=== PATIENT | male | born 1955 | race Caucasian/White ===

== ENCOUNTER 2023-06-19 13:00 | Outpatient (AMB) | payer OTHER, SELFPAY ==
--- NOTE | 2023-06-19 13:01 | A.OFFVIS_ITS ---
Intake Intake Visit Reasons: known prostatic adenocarcinoma Intake Note: NEW Patient presents today to established treatment for Prostatic Adenocarcinoma: Meds- None Allergies to Antibiotic- No Known Allergies Blood Thinner- None Unable to void PVR- 140 mL Patient Symptoms: Difficulty Urinating Event Management Consultant Required: Yes Event Management Consultant Language: Accountant Certified Public Name: Zoie ORTEGA Accompanied by: Self / Same As Patient Allergies No Known Allergies Allergy (Verified 06/19/23 22:36) Medication List - Last Reconciled 06/19/23 by JULIANA Meraz-ASAEL clonazepam 1 mg PO BEDTIME PRN clonidine HCl 0.1 mg PO BEDTIME gabapentin 300 mg PO TID hydroxyzine pamoate mg PO BID multivitamin 1 tab PO DAILY omeprazole 20 mg PO DAILY quetiapine mg PO sertraline 100 mg PO DAILY tamsulosin (Flomax) 0.4 mg PO BEDTIME 30 days HPI HPI Comments History of Present Illness Details Ernie is a very pleasant Lithuanian-speaking 68-year-old male patient of . He has a past medical history of adenocarcinoma of prostate, anemia, asthma, hemorrhoids, GERD, hypotension, inguinal hernia, interstitial lung disease, and contain dependence. He presents to the office today as a new patient for his longstanding history of prostate cancer. In discussion with the patient today reports to be doing and feeling well. He reports having followed up approximately 4 years ago here with Dr. Medrano at which time he was diagnosed with prostate cancer after undergoing a prostate biopsy in 2019. In review of patient's chart it appears prostate biopsy was performed 01/28/2019 in noted with 1 positive core at the right apex medial noting [place] score 3+3 involving 5- 10% of core length; negative for perineural invasion, lymphovascular invasion, and extraprostatic extension. Unable to obtain previous urology office notes at this time. Patient is unsure of previous treatment modalities he underwent. Discussed obtaining MRI of the prostate for further assessment evaluation as well as PSA. In office urinalysis results reviewed with the patient today. PVR 140 mL. Discussed at length incomplete bladder emptying and affects of incomplete bladder emptying. Patient does report noting urinary urgency, urinary frequency, and nocturia. He otherwise denies hematuria, dysuria, foul smelling urine, changes to urinary stream, flank pain, fever, and or chills. PFSH Surgical History (Updated 06/19/23 @ 13:18 by LUANA Crandall) Hx of hernia repair Family History (Updated 06/19/23 @ 13:10 by LUANA Crandall) Father No problems noted. Mother No problems noted. Social History (Updated 06/19/23 @ 13:18 by LUANA Crandall) Alcohol intake: current Alcohol intake frequency: does not drink Patient Tobacco Use Status: Current everyday Tobacco user Review of Systems Const Reports as per HPI Eyes Reports no additional complaints ENT Reports no additional complaints Card Reports as per HPI Resp Reports as per HPI GI Reports as per HPI Reports as per HPI Musc Reports no additional complaints Neuro Reports no additional complaints Psych Reports no additional complaints Endo Reports no additional complaints Fabricio/Lymph Reports as per HPI Physical Exam Const General: cooperative, comfortable, no acute distress, well developed, alert and awake Nutritional Appearance: thin Orientation/consciousness: patient oriented x3 Limitations: no limitations HEENT Head: Yes normal to inspection, Yes normocephalic and Yes atraumatic Ears: hearing grossly normal bilaterally Eyes General: appearance normal, both eyes and all related structures Neck Neck: Yes normal visual inspection and Yes trachea midline Chest Chest palpation & inspection: normal inspection of the chest Resp Effort & Inspection: normal respiratory effort and able to speak in complete sentences Cardio Rate: regular rate GI Inspection: Yes normal to inspection General: Yes no CVA tenderness Back/Spine/Pelvis Back: no CVA tenderness Skin General skin exam: no rashes or lesions noted Neuro General: patient oriented x3 Extrem General: Yes normal to inspection Psych Appearance: grossly normal and well kempt Mental Status: mental status grossly normal Speech and movement: Normal speech and movement present and Clear speech present Affect: normal affect Attitude: cooperative Thought process: Normal thought process present Thought content: Normal thought content present Insight: Fair insight present (Psych) Judgement: Fair judgement present (Psych) Assessment & Plan Assessment & Plan (1) Prostate cancer: Code(s): C61 - Malignant neoplasm of prostate (2) Incomplete bladder emptying: Code(s): R33.9 - Retention of urine, unspecified (3) Lower urinary tract symptoms: Code(s): R39.9 - Unspecified symptoms and signs involving the genitourinary system (4) Nocturia: Code(s): R35.1 - Nocturia (5) Urinary frequency: Code(s): R35.0 - Frequency of micturition (6) Urinary urgency: Code(s): R39.15 - Urgency of urination Plan In office urinalysis results reviewed with the patient today; as noted above. PVR 140 mL. Discussed at length causes and affects of incomplete bladder emptying. Start Flomax as discussed and prescribed; discussed side effects given patient's history of hypotension; Discussed obtaining MRI for further assessment evaluation. Will obtain PSA for further assessment evaluation. Discussed, stress, and educated on the importance of following up keeping scheduled appointments for continuity of care Follow-up in 1 month with imaging and labs to be completed prior; or sooner with any issues, concerns, and or questions. Orders: Orders AMB Post Void Residual by ultrasound Today N39.8 - Other specified disorders of urinary system MR pelvis wo/w con Today C61 - Malignant neoplasm of prostate AMB Urinalysis Automated Today Z13.9 - Encounter for screening, unspecified PSA,Total (Free>4and<10) Today C61 - Malignant neoplasm of prostate Medications: New tamsulosin (Flomax) 0.4 mg PO BEDTIME 30 days 30 caps 1RF N40.0 - Benign prostatic hyperplasia without lower urinary tract symptoms Patient Instructions: The patient had an opportunity to ask questions regarding the treatment plan. All questions were answered. Physical exam, labs, and imaging were discussed and reviewed in detail. As well as risks, benefits, and discussion of treatment choices. No major barriers to understanding were identified. The patient expressed understanding and agreement with the above treatment plan. The patient was made aware they should contact our office by phone for worsening of their current condition, the appearance of new symptoms, or with any questions or concerns. Compliance is encouraged with any medications and follow up testing that is ordered. It is a privilege to be allowed the opportunity to participate in? your urological care.? Again, if you have any questions or concerns If you have any questions or concerns please do not hesitate to contact me. The office is [phone]. This note is constructed using voice recognition software. While every effort has been made to ensure accuracy american sign language interpreter errors may have been included. Yours sincerely, JULIANA Meraz- Coding Level of Care Code New Pt Level 4 (64030) Diagnoses Prostate cancer C61 Incomplete bladder emptying R33.9 Lower urinary tract symptoms R39.9 Nocturia R35.1 Urinary frequency R35.0 Urinary urgency R39.15
--- OUTSIDE RECORDS SUMMARY | 2023-06-19 13:01 | XMS_ITS | Continuity of Care Document ---
Author Name Unknown Organization [facility] Address [address] [place] [address]- Care Team Providers Care Onyx Chip Terrazzo Worker Name Role Phone Ruddy Perez DO Primary Care Physician Encounter [facility] Date(s): 12/07/20 - 01/06/21 [facility] [address], [place] [address] Allergies, Adverse Reactions, Alerts No Known Medication Allergies Substance Reaction Severity Status NKA Active Immunizations Given and Recorded Vaccine Date Status Refusal Reason influenza virus vaccine, inactivated 09/03/20 Give n influenza virus vaccine, inactivated 1 05/30/18 Gi anabela influenza virus vaccine, inactivated 06/12/16 Give n influenza virus vaccine, inactivated 06/30/15 Give n influenza virus vaccine, inactivated 2 05/02/13 Gi anabela influenza virus vaccine, inactivated 3 07/26/11 Gi anabela pneumococcal 23-valent vaccine 5 12/01/11 Given tetanus/diphtheria/pertussis, acel(Tdap) 6 08/03/11 Given Not Given Vaccine Date Status Refusal Reason influenza virus vaccine, inactivated 4 10/15/17 No t Given Parent Or Guardian Refuses 1Result Comment: [05/30/2018] vaccine information sheet provided in northern irish for patient. 2Result Comment: [05/02/2013] Flulavale [id number] 3Admin Note: VIS 03/14/2011 4Admin Note: vis 11/26 5Admin Note: VIS 06/27 6Result Comment: Pt states he received flu shot last June Medications albuterol 0.083% inhalation solution 3 mL = 2.5 mg, Inhalation, Every 6 hours, PRN for wheezing, # 25 each, 6 Refills, Maintenance, 12/11/19 8:25:00 EDT, Solution, [facility] 170.18, cm, 09/19/19 14:54:00 EST, Height, 72.6, kg, 11/27/18 15:36:00 EDT, Dry Weight Start Date: 12/11/19 Status: Ordered albuterol CFC free 90 mcg/inh inhalation aerosol See Instructions, PRN, Inhalation 4 times a day for SOB and wheezing. Sammarinese instructions, # 1 each, Refills 5, Tot. Refills 5, Maintenance, 12/27/20 9:36:00 EDT, Instructions Replace Required Details Inhaler, Route to Pharmacy Electronically, [id number]... Start Date: 12/27/20 Status: Ordered finasteride 5 mg oral tablet 1 tablet = 5 mg, By Mouth, Daily, # 30 tablet, 0 Refills, Maintenance, 09/03/20 16:14:00 EST, Tablet, Partial fill upon patient request if the prescription is for a schedule II opioid drug. Start Date: 09/03/20 Status: Ordered gabapentin 300 mg oral capsule See Instructions, SEKOU 1 CAPSULA POR LA BOCA MASSIEL VECES AL SHANKAR, # 90 capsule, Refills 5, Maintenance, Instructions Replace Required Details, Route to Pharmacy Electronically, [facility], 170.18, cm, 09/03/20 16:58:00 EST, Height Start Date: 11/30/20 Status: Ordered hydrOXYzine hydrochloride 25 mg oral tablet 1 tablet = 25 mg, By Mouth, 3 times a day, PRN as needed for anxiety, PRN FOR ANXIETY. label in northern irish please, # 60 tablet, 1 Refills, Maintenance, 12/25/19 15:58:00 EDT, Tablet, [facility] 170.18, cm, 09/19/19 14:54:00 EST, Height,... Start Date: 12/25/19 Status: Ordered multivitamin Therapeutic Multiple Vitamins oral tablet 1 tablet, By Mouth, Daily, # 60 tablet, 5 Refills, Maintenance, 12/28/20 8:34:00 EDT, Tablet, [facility] 1 tablet By Mouth Daily, 170.18, cm, 09/03/20 16:58:00 EST, Height Start Date: 12/28/20 Status: Ordered Nutritional Supplements 1 can, By Mouth, 2 times a day, # 60 each, Refills 11, Tot. Refills 11, Maintenance, Ht: 170 Wt: 68kg BMI: 23 Dx: Prostate cancer Dispense vanilla and strawberry only., 01/19/20 17:28:00 EDT, Supply Start Date: 01/19/20 Status: Ordered On methadone On methadone, See Instructions, # 1 each, Refills 0, Tot. Refills 0, Maintenance, he is on Methadone at home, 11/04/17 8:01:25, Compound Start Date: 11/04/17 Status: Ordered please discontinue clonidine please discontinue clonidine, See Instructions, # 1 each, Refills 0, Tot. Refills 0, Maintenance, discontinue clonidine, 09/03/20 17:07:00 EST, Supply, 170.18, cm, 09/03/20 16:58:00 EST, Height, 72.6, kg, 11/27/18 15:36:00 EDT, Dry Weight Start Date: 09/03/20 Status: Ordered PriLOSEC OTC 20 mg oral delayed release tablet 1 tablet = 20 mg, By Mouth, Daily in AM, do not crush or chew, take 30 min prior breakfast label inspanish please, # 60 tablet, 2 Refills, Maintenance, 12/28/20 8:34:00 EDT, [facility], 170.18, cm, 09/03/20 16:58:00 EST, Height Start Date: 12/28/20 Status: Ordered QUEtiapine 200 mg oral tablet 200 mg, 1, tablet, By Mouth, Daily, label in northern irish please, # 60 tablet, Refills 2, Tot. Refills 2, Maintenance, 05/18/20 8:10:00 EDT, Route to Pharmacy Electronically, [facility], 170.18, cm, 09/19/19 14:54:00 EST, Height, 72.6, kg,... Start Date: 05/18/20 Status: Ordered QUEtiapine 50 mg oral tablet 1 tablet = 50 mg, By Mouth, Daily, # 30 tablet, 0 Refills, Maintenance, 09/23/18 10:07:51 EST, Tablet Start Date: 09/23/18 Status: Ordered Rollator Walker with Seat and Brakes Rollator Walker with Seat and Brakes, See Instructions, # 1 each, Refills 0, Tot. Refills 0, Maintenance, Pls dispense 1 walker; replacement walker dx: gait instability, h/o fall, 01/09/20 10:40:00 EDT, Compound Start Date: 01/09/20 Status: Ordered Shingrix intramuscular injection 0.5 mL, Intramuscular, Once, # 0.5 mL, 0 Refills, Soft Stop, 09/04/18 11:59:43 EST, 0.5 mL Intramuscular Once Start Date: 09/04/18 Status: Ordered Shingrix intramuscular injection 0.5 mL, Intramuscular, Once, # 0.5 mL, 0 Refills, Soft Stop, 09/24/18 11:22:10 EST, 0.5 mL Intramuscular Once Start Date: 09/24/18 Status: Ordered tamsulosin 0.4 mg oral capsule See Instructions, SEKOU 1 CAPSULA POR LA BOCA CADA SHANKAR, # 90 capsule, Refills 0, Maintenance, Instructions Replace Required Details, Route to Pharmacy Electronically, [facility], 170.18, cm, 09/19/19 14:54:00 EST, Height, 72.6, kg, 11/27/18... Start Date: 08/10/20 Status: Ordered Problem List Condition Effective Dates Status Health Status Inform ant Abnormal weight loss(Confirmed) Active Respiratory failure, acute(Confirmed) Active Adenocarcinoma of prostate(Confirmed) Active Anemia, on all readings 2001 to 2012 - chronic(Confirmed) Active Asthma(Confirmed) 1 Active BPH (benign prostatic hyperplasia)(Confirmed) 2 Active External bleeding hemorrhoids(Confirmed) Active GERD - Gastro-esophageal ref lux disease(Confirmed) Active Inguinal hernia(Confirmed) Active Interstitial lung disease(Confirmed) 10/16/17 Active Hypotension(Confirmed) Active Cancer of prostate(Confirmed) 01/2016 Active Tobacco use(Confirmed) Active 1mod persistent 2had bx per urology Social History Social History Type Response Smoking Status Current every day sm oker; Previous treatment: Nicotine replacement; Interested in cessation: Yes; Tobacco use times per day: 1 ppd; Number of years: 13; Total pack years: 13; entered on: 04/10/18 Sex
--- OUTSIDE RECORDS SUMMARY | 2023-06-19 13:01 | XMS_ITS | Continuity of Care Document ---
Author Name Unknown Organization [facility] Address [address] [place] [address]- Care Team Providers Care Health Administration Teacher Name Role Phone Verito Carpenter DO Primary Care Physician Encounter [facility] Date(s): 09/19/19 - 09/29/19 [facility] [address] [place] [address]- [facility] Attending Physician: Mina Gutierrez Admitting Physician: AdmMina angela Referring Physician: AdmtrMina Allergies, Adverse Reactions, Alerts No Known Medication Allergies Substance Reaction Severity Status NKA Active Immunizations Given and Recorded Vaccine Date Status Refusal Reason influenza virus vaccine, inactivated 1 05/30/18 Gi [...] Comment: [05/30/2018] vaccine information sheet provided in swiss for patient. 2Result Comment: [05/02/2013] [place]avale [id number] 3Admin Note: VIS 03/14/2011 4Admin Note: vis 11/26 5Admin Note: VIS 06/27 6Result Comment: Pt states he received flu shot last June Medications 1 walker 1 walker, See Instructions, # 1 each, Refills 0, Tot. Refills 0, Maintenance, Pls dispense 1 walker; replacement walker dx: gait instability, h/o fall, 09/19/19 16:01:00 EST, Compound Start Date: 09/19/19 Status: Ordered albuterol 0.083% inhalation solution 3 mL = 2.5 mg, Inhalation, Every 6 hours, PRN for wheezing, # 25 each, 0 Refills, Maintenance, 11/22/18 14:46:41 EDT, Solution Start Date: 11/22/18 Status: Ordered albuterol CFC free 90 mcg/inh inhalation aerosol See Instructions, PRN, Inhalation 4 times a day for SOB and wheezing. Guinean instructions, # 1 each, Refills 5, Tot. Refills 5, Maintenance, 09/11/18 12:34:47 EST, Instructions Replace Required Details Inhaler, Route to Pharmacy Electronically, [id number]... Start Date: 09/11/18 Status: Ordered cloNIDine 0.1 mg oral tablet 0.1 mg, 1, tablet, By Mouth, 2 times a day, # 60 tablet, Refills 0, Maintenance, 09/23/18 10:07:39 EST Start Date: 09/23/18 Status: Ordered gabapentin 300 mg oral capsule 300 mg, 1, capsule, By Mouth, 3 times a day, label in swiss please, # 90 capsule, Refills 5, Tot.Refills 5, Maintenance, 09/11/18 12:34:51 EST, Route to Pharmacy Electronically, [id number], [facility] Start Date: 09/11/18 Status: Ordered hydrOXYzine hydrochloride 25 mg oral tablet 1 tablet = 25 mg, By Mouth, 3 times a day, PRN as needed for anxiety, PRN FOR ANXIETY. label in swiss please, # 60 tablet, 1 Refills, Maintenance, 08/08/19 21:12:00 EST, Tablet, [facility] 170.18, cm, 03/28/19 14:33:00 EDT, Height,... Start Date: 08/08/19 Status: Ordered multivitamin Therapeutic Multiple Vitamins oral tablet 1 tablet, By Mouth, Daily, # 60 tablet, 1 Refills, Maintenance, 03/14/19 11:09:01 EDT, Tablet, 1 tablet By Mouth Daily Start Date: 03/14/19 Status: Ordered On methadone On methadone, See Instructions, # 1 each, Refills 0, Tot. Refills 0, Maintenance, he is on Methadone at home, 11/04/17 8:01:25, Compound Start Date: 11/04/17 Status: Ordered PriLOSEC OTC 20 mg oral delayed release tablet 1 tablet = 20 mg, By Mouth, Daily in AM, do not crush or chew, take 30 min prior breakfast label inspanish please, # 60 tablet, 1 Refills, Maintenance, 09/11/18 12:34:55 EST Start Date: 09/11/18 Status: Ordered QUEtiapine 200 mg oral tablet 200 mg, 1, tablet, By Mouth, Daily, label in swiss please, # 60 tablet, Refills 2, Tot. Refills 2, Maintenance, 09/11/18 12:35:11 EST, Route to Pharmacy Electronically, [id number], [facility] Start Date: 09/11/18 Status: Ordered QUEtiapine 50 mg oral tablet 1 tablet = 50 mg, By Mouth, Daily, # 30 tablet, 0 Refills, Maintenance, 09/23/18 10:07:51 EST, Tablet Start Date: 09/23/18 Status: Ordered sertraline 50 mg oral tablet 1 tablet = 50 mg, By Mouth, Daily, label in swiss please, # 90 tablet, 2 Refills, Maintenance, 09/11/18 12:35:40 EST, Tablet Start Date: 09/11/18 Status: Ordered Shingrix intramuscular injection 0.5 mL, Intramuscular, Once, # 0.5 mL, 0 Refills, Soft Stop, 09/24/18 11:22:10 EST, 0.5 mL Intramuscular Once Start Date: 09/24/18 Status: Ordered Shingrix intramuscular injection 0.5 mL, Intramuscular, Once, # 0.5 mL, 0 Refills, Soft Stop, 09/04/18 11:59:43 EST, 0.5 mL Intramuscular Once Start Date: 09/04/18 Status: Ordered tamsulosin 0.4 mg oral capsule 0.4 mg, 1, capsule, By Mouth, Daily, # 90 capsule, Refills 0, Tot. Refills 0, Maintenance, 09/04/2018:12:00 EST, Route to Pharmacy Electronically, [facility], 170.18, cm, 03/28/19 14:33:00 EDT, Height, 72.6, kg, 11/27/18 15:36:00 EDT,... Start Date: 09/04/19 Status: Ordered Problem List Condition Effective Dates [...] Interstitial lung disease(Confirmed) 10/16/17 Active Hypotension(Confirmed) Active Tobacco use(Confirmed) Active 1mod persistent 2had bx per urology Social History Social History Type Response Smoking Status Current every day sandra ortiz; Previous treatment: Nicotine replacement; Interested in cessation: Yes; Tobacco use times per day: 1 ppd; Number of years: 13; Total pack years: 13; entered on: 04/10/18 Sex
--- OUTSIDE RECORDS SUMMARY | 2023-06-19 13:01 | XMS_ITS | Continuity of Care Document ---
Author Name Unknown Organization [facility] Address [address] [place] [address]- Care Team Providers Care Metal Burrer Name Role Phone Ruddy Perez DO Primary Care Physician Encounter [facility] Date(s): 12/28/20 - 01/27/21 [facility] [address], [place] [address] Allergies, Adverse Reactions, Alerts No Known Medication [...] Comment: [05/30/2018] vaccine information sheet provided in honduran for patient. 2Result Comment: [05/02/2013] [place]avale [id number] 3Admin Note: VIS 03/14/2011 4Admin Note: vis 11/26 5Admin Note: VIS 06/27 6Result Comment: Pt states he received flu shot last June Medications albuterol 0.083% inhalation solution 3 mL = 2.5 mg, Inhalation, Every 6 hours, PRN for wheezing, # 25 each, 6 Refills, Maintenance, 12/11/19 8:25:00 EDT, Solution, [facility] 170.18, cm, 09/19/19 14:54:00 EST, Height, 72.6, kg, 11/27/18 15:36:00 EDT, Dry Weight Start Date: 12/11/19 Status: Ordered albuterol CFC free 90 mcg/inh inhalation aerosol See Instructions, PRN, Inhalation 4 times a day for SOB and wheezing. French instructions, # 1 each, Refills 5, Tot. Refills 5, Maintenance, 12/27/20 9:36:00 EDT, Instructions Replace Required Details Inhaler, Route to Pharmacy Electronically, [id number]... Start Date: 12/27/20 Status: Ordered finasteride 5 [...] Replace Required Details, Route to Pharmacy Electronically, [facility], 170.18, cm, 09/03/20 16:58:00 EST, Height Start Date: 11/30/20 Status: Ordered hydrOXYzine hydrochloride 25 mg oral tablet 1 tablet = 25 mg, By Mouth, 3 times a day, PRN as needed for anxiety, PRN FOR ANXIETY. label in honduran please, # 60 tablet, 1 Refills, Maintenance, 12/25/19 15:58:00 EDT, Tablet, [facility] 170.18, cm, 09/19/19 14:54:00 EST, Height,... Start Date: 12/25/19 Status: Ordered multivitamin Therapeutic Multiple Vitamins oral tablet 1 tablet, By Mouth, Daily, # 60 tablet, 5 Refills, Maintenance, 12/28/20 8:34:00 EDT, Tablet, [facility] 1 tablet By Mouth Daily, 170.18, cm, [...] tablet, 2 Refills, Maintenance, 12/28/20 8:34:00 EDT, [facility], 170.18, cm, 09/03/20 16:58:00 EST, Height Start Date: 12/28/20 Status: Ordered QUEtiapine 200 mg oral tablet 200 mg, 1, tablet, By Mouth, Daily, label in honduran please, # 60 tablet, Refills 2, Tot. Refills 2, Maintenance, 05/18/20 8:10:00 EDT, Route to Pharmacy Electronically, [facility], 170.18, cm, 09/19/19 14:54:00 EST, Height, 72.6, [...] Replace Required Details, Route to Pharmacy Electronically, [facility], 170.18, cm, 09/19/19 14:54:00 EST, [...]
--- OUTSIDE RECORDS SUMMARY | 2023-06-19 13:01 | XMS_ITS | Continuity of Care Document ---
Author Name Unknown Organization [facility] Address [address] [place] [address]- Care Team Providers Care Net Developer Contract Name Role Phone Ruddy Perez DO Primary Care Physician [phone] Encounter [facility] Date(s): 05/04/21 - 06/03/21 [facility] [address], [place] [address] Allergies, Adverse Reactions, Alerts No Known Medication Allergies Substance Reaction Severity Status NKA Active Immunizations Given and Recorded Vaccine Date Status Refusal Reason SARS-CoV-2 (COVID-19) mRNA BNT-162b2 vac 01/08/21 Recorded influenza virus vaccine, inactivated 09/03/20 Give n [...] Comment: [05/30/2018] vaccine information sheet provided in british virgin islander for patient. 2Result Comment: [05/02/2013] Flulavale [id number] 3Admin Note: VIS 03/14/2011 4Admin Note: vis 11/26 5Admin Note: VIS 06/27 6Result Comment: Pt states he received flu shot last June Medications albuterol 0.083% inhalation solution 3 mL = 2.5 mg, Inhalation, Every 6 hours, PRN for wheezing, # 25 each, 6 Refills, Maintenance, 12/11/19 8:25:00 EDT, Solution, [facility]., 170.18, cm, 09/19/19 14:54:00 EST, Height, 72.6, kg, 11/27/18 15:36:00 EDT, Dry Weight Start Date: 12/11/19 Status: Ordered albuterol CFC free 90 mcg/inh inhalation aerosol See Instructions, PRN, Inhalation 4 times a day for SOB and wheezing. Frisian instructions, # 1 each, Refills 5, Tot. Refills 5, Maintenance, 12/27/20 9:36:00 EDT, Instructions Replace Required Details Inhaler, Route to Pharmacy Electronically, [id number]... Start Date: 12/27/20 Status: Ordered clonazePAM 1 mg oral tablet 0 Refills, Maintenance, 03/21/21 15:28:00 EDT, Partial fill upon patient request if the prescription is for a schedule II opioid drug. Start Date: 03/21/21 Status: Ordered Disposable Incontinence Bed Pads Disposable Incontinence Bed Pads, See Instructions, # 240 each, Refills 11, Tot. Refills 11, Maintenance, Disposable Incontinence Bed Pads Use as directed to protect bed from incontinence Dx: R35.1, R32 Duration: Lifetime, 03/22/21 9:58:00 EDT, Supply Start Date: 03/22/21 Status: Ordered finasteride 5 mg oral tablet [...] AL SHANKAR, # 90 capsule, Refills 5, Tot. Refills 5, 05/19/21 6:41:00 EDT, Instructions Replace Required Details, Route to Pharmacy Electronically, [facility], 170.18, cm, 03/21/21 1... Start Date: 05/19/21 Status: Ordered hydrOXYzine hydrochloride 25 mg oral tablet 1 tablet = 25 mg, By Mouth, 3 times a day, PRN as needed for anxiety, PRN FOR ANXIETY. label in british virgin islander please, # 60 tablet, 1 Refills, Maintenance, 12/25/19 15:58:00 EDT, Tablet, [facility], 170.18, cm, 09/19/19 14:54:00 EST, Height,... Start Date: 12/25/19 Status: Ordered multivitamin Therapeutic Multiple Vitamins oral tablet 1 tablet, By Mouth, Daily, # 60 tablet, 5 Refills, Maintenance, 12/28/20 8:34:00 EDT, Tablet, [facility], 1 tablet By Mouth Daily, 170.18, cm, [...] Tot. Refills 0, Maintenance, he is on 60 mg Methadone at home, 11/04/17 8:01:25 EDT, Compound Start Date: 11/04/17 Status: Ordered PriLOSEC OTC 20 mg oral delayed release tablet 1 tablet = 20 mg, By Mouth, Daily in AM, do not crush or chew, take 30 min prior breakfast label inspanish please, # 60 tablet, 2 Refills, Maintenance, 05/11/21 15:34:00 EDT, [facility], 170.18, cm, 03/21/21 15:04:00 EDT, Height Start Date: 05/11/21 Status: Ordered QUEtiapine 200 mg oral tablet 200 mg, 1, tablet, By Mouth, Daily, label in british virgin islander please, # 60 tablet, Refills 2, Tot. Refills 2, Maintenance, 05/18/20 8:10:00 EDT, Route to Pharmacy Electronically, [facility], 170.18, cm, 09/19/19 14:54:00 EST, Height, 72.6, kg,... Start Date: 05/18/20 Status: Ordered Rollator Walker with Seat and Brakes Rollator Walker with Seat and Brakes, See Instructions, # 1 each, Refills 0, Tot. Refills 0, Maintenance, Pls dispense 1 walker; replacement walker dx: gait instability, h/o fall, 01/09/20 10:40:00 EDT, Compound Start Date: 01/09/20 Status: Ordered sertraline 100 mg oral tablet 1 tablet = 100 mg, By Mouth, Daily, # 30 tablet, 0 Refills, Maintenance, 03/21/21 15:27:00 EDT, Tablet, Partial fill upon patient request if the prescription is for a schedule II opioid drug. Start Date: 03/21/21 Status: Ordered tamsulosin 0.4 mg oral capsule See Instructions, SEKOU 1 CAPSULA POR LA BOCA CADA SHANKAR, # 90 capsule, Refills 0, Maintenance, Instructions Replace Required Details, [facility], 170.18, cm, 09/19/19 14:54:00 EST, Height, 72.6, [...] Hypotension(Confirmed) Active Cancer of prostate(Confirmed) 01/2016 Active Nocturia(Confirmed) Active Tobacco use(Confirmed) Active 1mod persistent 2had bx per urology Social History Social History Type Response Smoking Status Current every day sm oker; Previous treatment: Nicotine replacement; Interested in cessation: Yes; Tobacco use times per day: 1 ppd; Number of years: 13; Total pack years: 13; entered on: 04/10/18 Sex
--- OUTSIDE RECORDS SUMMARY | 2023-06-19 13:01 | XMS_ITS | Continuity of Care Document ---
Author Name Unknown Organization [facility] Address [address] [place] [address]- Care Team Providers Care Water And Sewer Systems Superintendent Name Role Phone Ruddy Perez DO Primary Care Physician Encounter [facility] Date(s): 08/06/20 - 09/05/20 [facility] [address] [place], [place] [address] Allergies, Adverse Reactions, Alerts No Known [...] Comment: [05/30/2018] vaccine information sheet provided in thai for patient. 2Result Comment: [05/02/2013] Flulavale [id number] 3Admin Note: VIS 03/14/2011 4Admin Note: vis 11/26 5Admin Note: VIS 06/27 6Result Comment: Pt states he received flu shot last June Medications albuterol 0.083% inhalation solution 3 mL = 2.5 mg, Inhalation, Every 6 hours, PRN for wheezing, # 25 each, 6 Refills, Maintenance, 12/11/19 8:25:00 EDT, Solution, [facility] 170.18, cm, 09/19/19 14:54:00 EST, Height, 72.6, kg, 11/27/18 15:36:00 EDT, Dry Weight Start Date: 12/11/19 Status: Ordered albuterol CFC free 90 mcg/inh inhalation aerosol See Instructions, PRN, Inhalation 4 times a day for SOB and wheezing. Sami instructions, # 1 each, Refills 5, Tot. Refills 5, Maintenance, 12/05/19 15:38:00 EDT, Instructions Replace Required Details Inhaler, Route to Pharmacy Electronically, [id number]... Start Date: 12/05/19 Status: Ordered finasteride 5 mg oral tablet 1 tablet = 5 mg, By Mouth, Daily, # 30 tablet, 0 Refills, Maintenance, 09/03/20 16:14:00 EST, Tablet, Partial fill upon patient request if the prescription is for a schedule II opioid drug. Start Date: 09/03/20 Status: Ordered gabapentin 300 mg oral capsule 300 mg, 1, capsule, By Mouth, 3 times a day, label in thai please, # 90 capsule, Refills 5, Tot.Refills 5, Maintenance, 05/17/20 8:49:00 EDT, Route to Pharmacy Electronically, [facility], 170.18, cm, 09/19/19 14:54:00 EST, Height,... Start Date: 05/17/20 Status: Ordered hydrOXYzine hydrochloride 25 mg oral tablet 1 tablet = 25 mg, By Mouth, 3 times a day, PRN as needed for anxiety, PRN FOR ANXIETY. label in thai please, # 60 tablet, 1 Refills, Maintenance, 12/25/19 15:58:00 EDT, Tablet, [facility]., 170.18, cm, 09/19/19 14:54:00 EST, Height,... Start Date: 12/25/19 Status: Ordered multivitamin Therapeutic Multiple Vitamins oral tablet 1 tablet, By Mouth, Daily, # 60 tablet, 1 Refills, Maintenance, 12/05/19 15:38:00 EDT, Tablet, [facility] 1 tablet By Mouth Daily, 170.18, cm, 09/19/19 14:54:00 EST, Height, 72.6, kg, 11/27/18 15:36:00 EDT, Dry Weight Start Date: 12/05/19 Status: Ordered Nutritional Supplements 1 can, By [...] please, # 60 tablet, 1 Refills, Maintenance, 12/05/19 15:38:00 EDT, [facility], 170.18, cm, 09/19/19 14:54:00 EST, Height, 72... Start Date: 12/05/19 Status: Ordered QUEtiapine 200 mg oral tablet 200 mg, 1, tablet, By Mouth, Daily, label in thai please, # 60 tablet, Refills 2, Tot. Refills 2, Maintenance, 05/18/20 8:10:00 EDT, Route to Pharmacy Electronically, [facility], 170.18, cm, 09/19/19 14:54:00 EST, Height, [...] Replace Required Details, [facility] to [facility], [facility], 170.18, cm, 09/19/19 14:54:00 EST, Height, [...]
--- OUTSIDE RECORDS SUMMARY | 2023-06-19 13:02 | XMS_ITS | Continuity of Care Document ---
Author Name Unknown Organization [facility] Address [address] [place] [address]- Care Team Providers Care Dependency Counselor Name Role Phone Ruddy Perez DO Primary Care Physician Encounter [facility] Date(s): 11/02/21 - 12/02/21 [facility] [address] [place] [address] Allergies, Adverse Reactions, Alerts No Known Allergies Immunizations Given and Recorded Vaccine Date Status Refusal Reason SARS-CoV-2 (COVID-19) mRNA BNT-162b2 vac 01/18/21 Recorded SARS-CoV-2 (COVID-19) mRNA BNT-162b2 vac 01/08/21 Recorded [...] Comment: [05/30/2018] vaccine information sheet provided in dominican for patient. 2Result Comment: [05/02/2013] Flulavale [id number] 3Admin Note: VIS 03/14/2011 4Admin Note: vis 11/26 5Admin Note: VIS 06/27 6Result Comment: Pt states he received flu shot last June Medications albuterol 0.083% inhalation solution 3 mL = 2.5 mg, Inhalation, Every 6 hours, PRN for wheezing, # 25 each, 6 Refills, Maintenance, 12/11/19 8:25:00 EDT, Solution, [facility] 170.18, cm, 09/19/19 14:54:00 EST, Height, 72.6, kg, 11/27/18 15:36:00 EDT, Dry Weight Start Date: 12/11/19 Status: Ordered albuterol CFC free 90 mcg/inh inhalation aerosol See Instructions, PRN, Inhalation 4 times a day for SOB and wheezing. Croatian instructions, # 1 each, Refills 5, Tot. Refills 5, Maintenance, 12/27/20 9:36:00 EDT, Instructions Replace Required Details Inhaler, Route to Pharmacy Electronically, [id number]... Start Date: 12/27/20 Status: Ordered clonazePAM 1 [...] 90 capsule, Refills 5, Tot. Refills 5, 11/07/21 10:25:00 EDT, Instructions Replace Required Details, Route to Pharmacy Electronically, [facility] 170.18, cm, 07/01/21... Start Date: 11/07/21 Status: Ordered hydrOXYzine hydrochloride 25 mg oral tablet 1 tablet = 25 mg, By Mouth, 3 times a day, PRN as needed for anxiety, PRN FOR ANXIETY. label in dominican please, # 60 tablet, 1 Refills, Maintenance, 12/25/19 15:58:00 EDT, Tablet, [facility], 170.18, cm, 09/19/19 14:54:00 EST, Height,... Start Date: 12/25/19 Status: Ordered multivitamin Therapeutic Multiple Vitamins oral tablet 1 tablet, By Mouth, Daily, # 60 tablet, 5 Refills, Maintenance, 12/28/20 8:34:00 EDT, Tablet, [facility], 1 tablet By Mouth Daily, 170.18, [...] min prior breakfast label inspanish please, # 30 tablet, 2 Refills, Maintenance, 11/02/21 11:27:00 EDT, [facility], 170.18, cm, 07/01/21 8:02:00 EST, Height Start Date: 11/02/21 Status: Ordered QUEtiapine 200 mg oral tablet 200 mg, 1, tablet, By Mouth, Daily, label in dominican please, # 60 tablet, Refills 2, Tot. Refills 2, Maintenance, 05/18/20 8:10:00 EDT, Route to Pharmacy Electronically, [facility], 170.18, cm, 09/19/19 14:54:00 EST, Height, [...] capsule 0.4 mg, 1, capsule, By Mouth, Daily at bedtime, # 90 capsule, Refills 2, Tot. Refills 2, Maintenance, 07/01/21 8:58:00 EST, [facility] Please print label and instructions in Croatian., 170.18, cm, 06/20... Start Date: 07/01/21 Status: Ordered Problem List Condition Effective Dates Status Health Status Inform ant Abnormal weight loss(Confirmed) Active Respiratory failure, acute(Confirmed) Active Adenocarcinoma of prostate s /p radonco not undergoing surveillance(Confirmed) Active Anemia, on all readings 2001 to [...]
--- OUTSIDE RECORDS SUMMARY | 2023-06-19 13:02 | XMS_ITS | Continuity of Care Document ---
Author Name Unknown Organization [facility] Address [address] [place] [address]- Care Team Providers Care Consumer Insights Intern Name Role Phone Ruddy Perez DO Primary Care Physician [phone] [facility] [facility] Date(s): 12/24/20 - 01/23/21 [facility] [address] [place], [place] [address] Allergies, Adverse Reactions, Alerts No [...] Comment: [05/30/2018] vaccine information sheet provided in togolese for patient. 2Result Comment: [05/02/2013] Flulavale [id number] 3Admin Note: VIS 03/14/2011 4Admin Note: vis 11/26 5Admin Note: VIS 06/27 6Result Comment: Pt states he received flu shot last June Medications albuterol 0.083% inhalation solution 3 mL = 2.5 mg, Inhalation, Every 6 hours, PRN for wheezing, # 25 each, 6 Refills, Maintenance, 12/11/19 8:25:00 EDT, Solution, [facility] 170.18, cm, 09/19/19 14:54:00 EST, Height, 72.6, kg, 11/27/18 15:36:00 EDT, Dry Weight Start Date: 12/11/19 Status: Ordered albuterol CFC free 90 mcg/inh inhalation aerosol See Instructions, PRN, Inhalation 4 times a day for SOB and wheezing. Turkish instructions, # 1 each, Refills 5, Tot. Refills 5, Maintenance, 12/27/20 9:36:00 EDT, Instructions Replace Required Details Inhaler, Route to Pharmacy Electronically, [id number]... Start Date: 12/27/20 Status: Ordered finasteride 5 [...] Replace Required Details, Route to Pharmacy Electronically, [facility], 170.18, cm, 09/03/20 16:58:00 EST, Height Start Date: 11/30/20 Status: Ordered hydrOXYzine hydrochloride 25 mg oral tablet 1 tablet = 25 mg, By Mouth, 3 times a day, PRN as needed for anxiety, PRN FOR ANXIETY. label in togolese please, # 60 tablet, 1 Refills, Maintenance, 12/25/19 15:58:00 EDT, Tablet, [facility] 170.18, cm, 09/19/19 14:54:00 EST, Height,... Start Date: 12/25/19 Status: Ordered multivitamin Therapeutic Multiple Vitamins oral tablet 1 tablet, By Mouth, Daily, # 60 tablet, 5 Refills, Maintenance, 12/28/20 8:34:00 EDT, Tablet, [facility]., 1 tablet By Mouth Daily, 170.18, [...] tablet, 2 Refills, Maintenance, 12/28/20 8:34:00 EDT, [facility], 170.18, cm, 09/03/20 16:58:00 EST, Height Start Date: 12/28/20 Status: Ordered QUEtiapine 200 mg oral tablet 200 mg, 1, tablet, By Mouth, Daily, label in togolese please, # 60 tablet, Refills 2, Tot. Refills 2, Maintenance, 05/18/20 8:10:00 EDT, Route to Pharmacy Electronically, [facility], 170.18, cm, 09/19/19 14:54:00 EST, Height, [...] Replace Required Details, Route to Pharmacy Electronically, [facility], 170.18, cm, 09/19/19 14:54:00 EST, Height, 72.6, [...]
--- OUTSIDE RECORDS SUMMARY | 2023-06-19 13:02 | XMS_ITS | Continuity of Care Document ---
Author Name Unknown Organization [facility] Address [address] [place] [address]- Care Team Providers Care Supervisor Welding Equipment Repairer Name Role Phone Ruddy Perez DO Primary Care Physician En[place] [facility] [place] Date(s): 05/25/22 - 06/24/22 [facility] [address] [place], [place] [address] Allergies, Adverse Reactions, Alerts No Known Allergies [...] Comment: [05/30/2018] vaccine information sheet provided in sudanese for patient. 2Result Comment: [05/02/2013] Flulavale [id number] 3Admin Note: VIS 03/14/2011 4Admin Note: vis 11/26 5Admin Note: VIS 06/27 6Result Comment: Pt states he received flu shot last June Medications albuterol 0.083% inhalation solution 3 mL = 2.5 mg, Inhalation, Every 6 hours, PRN for wheezing, # 25 each, 6 Refills, Maintenance, 12/11/19 8:25:00 EDT, Solution, [facility], 170.18, cm, 09/19/19 14:54:00 EST, Height, 72.6, kg, 11/27/18 15:36:00 EDT, Dry Weight Start Date: 12/11/19 Status: Ordered albuterol CFC free 90 mcg/inh inhalation aerosol 2, puffs, Inhalation, Every 6 hours, PRN, # 18 Gm, Refills 1, Tot. Refills 1, Maintenance, 02/24/2217:51:00 EDT, Inhaler, Route to Pharmacy Electronically, [id number], [facility], 170.18, cm, 07/01/21 8:02:00... Start Date: 02/24/22 Stop Date: 04/25/22 Status: Ordered clonazePAM 1 mg oral tablet [...] SHANKAR, # 90 capsule, Refills 5, Maintenance, 06/02/22 13:19:00 EDT, Instructions Replace Required Details, [facility], 170.18, cm, 07/01/21 8:02:00 E... Start Date: 06/02/22 Status: Ordered hydrOXYzine hydrochloride 25 mg oral tablet 1 tablet = 25 mg, By Mouth, 3 times a day, PRN as needed for anxiety, PRN FOR ANXIETY. label in sudanese please, # 60 tablet, 1 Refills, Maintenance, 12/25/19 15:58:00 EDT, Tablet, [facility] 170.18, cm, 09/19/19 14:54:00 EST, Height,... Start Date: 12/25/19 Status: Ordered multivitamin Therapeutic Multiple Vitamins oral tablet 1 tablet, By Mouth, Daily, # 30 tablet, 5 Refills, Maintenance, 01/02/22 20:35:00 EDT, Tablet, [facility]., 1 tablet By Mouth Daily, 170.18, cm, 07/01/21 8:02:00 EST, Height Start Date: 01/02/22 Status: Ordered Nutritional Supplements 1 can, By Mouth, 2 times a day, # 60 each, Refills 11, Tot. Refills 11, Maintenance, Ht: 170 Wt: 68kg BMI: 23 Dx: Prostate cancer Dispense vanilla and strawberry only., 01/19/20 17:28:00 EDT, Supply Start Date: 01/19/20 Status: Ordered omeprazole 20 mg oral enteric coated capsule See Instructions, SEKOU 1 CAPSULA POR LA BOCA CADA SHANKAR TOME 30 MINUTOS ANTES DE DESAYUNO, # 30 capsule, 2 Refills, Maintenance, 06/02/22 13:19:00 EDT, [facility], 170.18, cm, 07/01/21 8:02:00 EST, Height Start Date: 06/02/22 Status: Ordered On methadone On methadone, See Instructions, # 1 each, Refills 0, Tot. Refills 0, Maintenance, he is on 60 mg Methadone at home, 11/04/17 8:01:25 EDT, Compound Start Date: 11/04/17 Status: Ordered QUEtiapine 200 mg oral tablet 200 mg, 1, tablet, By Mouth, Daily, label in sudanese please, # 60 tablet, Refills 2, Tot. Refills 2, Maintenance, 05/18/20 8:10:00 EDT, Route to Pharmacy Electronically, [facility] 170.18, cm, 09/19/19 14:54:00 EST, Height, [...] 07/01/21 8:58:00 EST, Route to Pharmacy Electronically, [facility]., Please print label and instructions in Faroese., 170.18, cm, 06/20... Start Date: 07/01/21 Status: Ordered Problem List Condition Confirmation Course Effective Dates Status H ealth Status Informant Abnormal weight loss Confirmed Active Respiratory failure, acute Confirmed Active Adenocarcinoma of prostate s/p radonco not undergoing surveillance Confirmed Active Anemia, on all readings 2001 to 2012 - chronic Confirmed Active Asthma 1 Confirmed Active BPH (benign prostatic hyperplasia) 2 Confirmed Active External bleeding hemorrhoids Confirmed Active GERD - Gastro-esophageal reflux disease Confirmed Active Inguinal hernia Confirmed Active Interstitial lung disease Confirmed 10/16/17 Active Hypotension Confirmed Active Cancer of prostate Confirmed 01/2016 Active Nocturia Confirmed Active [id number] Title Insurance Examiner Angela Cherry Confirmed Active Tobacco use Confirmed Active 1mod persistent 2had bx per urology Social History Social History Type Response Smoking Status Current every day sm oker; Previous treatment: Nicotine replacement; Interested in cessation: Yes; Tobacco use times per day: 1 ppd; Number of years: 13; Total pack years: 13; entered on: 8/22/18 Sex Patient Care team information Personnel Name: Ruddy Perez DO Address: Address: [address] [place] [id number]
--- OUTSIDE RECORDS SUMMARY | 2023-06-19 13:02 | XMS_ITS | Continuity of Care Document ---
Author Name Unknown Organization [facility] Address [address] [place] [address]- Care Team Providers Care Pig Breeder Name Role Phone Ruddy Perez DO Primary Care Physician [place] [id number] Date(s): 02/27/22 - 04/09/22 [facility] [address] [place], [place] [address] Attending Physician: Not on Staff, Attending MD Allergies, Adverse Reactions, Alerts No Known Allergies [...] Comment: [05/30/2018] vaccine information sheet provided in croatian for patient. 2Result Comment: [05/02/2013] Flulavale [id number] 3Admin Note: VIS 03/14/2011 4Admin Note: vis 11/26 5Admin Note: VIS 06/27 6Result Comment: Pt states he received flu shot last June Medications albuterol 0.083% inhalation solution 3 mL = 2.5 mg, Inhalation, Every 6 hours, PRN for wheezing, # 25 each, 6 Refills, Maintenance, 12/11/19 8:25:00 EDT, Solution, [facility], 170.18, cm, 09/19/19 14:54:00 EST, Height, 72.6, kg, 11/27/18 15:36:00 EDT, Dry Weight Start Date: 12/11/19 Status: Ordered albuterol CFC free 90 mcg/inh inhalation aerosol 2, puffs, Inhalation, Every 6 hours, PRN, # 18 Gm, Refills 1, Tot. Refills 1, Maintenance, 02/24/2217:51:00 EDT, Inhaler, Route to Pharmacy Electronically, [id number], [facility], 170.18, cm, 07/01/21 8:02:00... Start Date: [...] Replace Required Details, Route to Pharmacy Electronically, [facility], 170.18, cm, 07/01/21... Start Date: 11/07/21 Status: Ordered hydrOXYzine hydrochloride 25 mg oral tablet 1 tablet = 25 mg, By Mouth, 3 times a day, PRN as needed for anxiety, PRN FOR ANXIETY. label in croatian please, # 60 tablet, 1 Refills, Maintenance, 12/25/19 15:58:00 EDT, Tablet, [facility], 170.18, cm, 09/19/19 14:54:00 EST, Height,... Start Date: 12/25/19 Status: Ordered multivitamin Therapeutic Multiple Vitamins oral tablet 1 tablet, By Mouth, Daily, # 30 tablet, 5 Refills, Maintenance, 01/02/22 20:35:00 EDT, Tablet, [facility], 1 tablet By Mouth Daily, 170.18, [...] please, # 30 tablet, 2 Refills, Maintenance, 01/31/22 12:13:00 EDT, [facility], 170.18, cm, 07/01/21 8:02:00 EST, Height Start Date: 01/31/22 Status: Ordered QUEtiapine 200 mg oral tablet 200 mg, 1, tablet, By Mouth, Daily, label in croatian please, # 60 tablet, Refills 2, Tot. Refills 2, Maintenance, 05/18/20 8:10:00 EDT, Route to Pharmacy Electronically, [facility] 170.18, cm, 09/19/19 14:54:00 EST, Height, [...] 07/01/21 8:58:00 EST, Route to Pharmacy Electronically, [facility], Please print label and instructions in Mongolian., 170.18, cm, 06/20... Start Date: 07/01/21 Status: [...]
--- OUTSIDE RECORDS SUMMARY | 2023-06-19 13:02 | XMS_ITS | Continuity of Care Document ---
Author Name Unknown Organization [facility] Address [address] [place] [address]- Care Team Providers Care Mirror Framer Name Role Phone Ruddy Perez DO Primary Care Physician [phone] [place] [facility] [place]22 - 05/10/22 [facility] [address], [place] [address] Allergies, Adverse Reactions, Alerts No [...] Comment: [05/30/2018] vaccine information sheet provided in zimbabwean for patient. 2Result Comment: [05/02/2013] Flulavale [id number] 3Admin Note: VIS 03/14/2011 4Admin Note: vis 11/26 5Admin Note: VIS 06/27 6Result Comment: Pt states he received flu shot last June Medications albuterol 0.083% inhalation solution 3 mL = 2.5 mg, Inhalation, Every 6 hours, PRN for wheezing, # 25 each, 6 Refills, Maintenance, 12/11/19 8:25:00 EDT, Solution, [facility], 170.18, cm, 09/19/19 14:54:00 EST, Height, 72.6, kg, 11/27/18 15:36:00 EDT, Dry Weight Start Date: 12/11/19 Status: Ordered albuterol CFC free 90 mcg/inh inhalation aerosol 2, puffs, Inhalation, Every 6 hours, PRN, # 18 Gm, Refills 1, Tot. Refills 1, Maintenance, 02/24/2217:51:00 EDT, Inhaler, Route to Pharmacy Electronically, [id number], [facility], 170.18, cm, 07/01/21 8:02:00... Start Date: [...] Replace Required Details, Route to Pharmacy Electronically, [facility], 170.18, cm, 07/01/21... Start Date: 11/07/21 Status: Ordered hydrOXYzine hydrochloride 25 mg oral tablet 1 tablet = 25 mg, By Mouth, 3 times a day, PRN as needed for anxiety, PRN FOR ANXIETY. label in zimbabwean please, # 60 tablet, 1 Refills, Maintenance, 12/25/19 15:58:00 EDT, Tablet, [facility]., 170.18, cm, 09/19/19 14:54:00 EST, Height,... Start Date: 12/25/19 Status: Ordered multivitamin Therapeutic Multiple Vitamins oral tablet 1 tablet, By Mouth, Daily, # 30 tablet, 5 Refills, Maintenance, 01/02/22 20:35:00 EDT, Tablet, [facility], 1 tablet By Mouth Daily, 170.18, [...] tablet, 2 Refills, Maintenance, 01/31/22 12:13:00 EDT, [facility]., 170.18, cm, 07/01/21 8:02:00 EST, Height Start Date: 01/31/22 Status: Ordered QUEtiapine 200 mg oral tablet 200 mg, 1, tablet, By Mouth, Daily, label in zimbabwean please, # 60 tablet, Refills 2, Tot. Refills 2, Maintenance, 05/18/20 8:10:00 EDT, Route to Pharmacy Electronically, [facility]., 170.18, cm, 09/19/19 14:54:00 EST, Height, [...] 07/01/21 8:58:00 EST, Route to Pharmacy Electronically, [facility]., Please print label and instructions in Kazakh., 170.18, cm, 06/20... Start Date: 07/01/21 Status: [...] pack years: 13; entered on: 04/10/18 Sex Care Team Personnel Name: Ruddy Perez DO Address: [address] [place] [phone]-
--- OUTSIDE RECORDS SUMMARY | 2023-06-19 13:02 | XMS_ITS | Continuity of Care Document ---
Author Name Unknown Organization [facility] ter Address [address] [place] [address]- Care Team Providers Care Rn Practitioner Name Role Phone Verito Carpenter DO Primary Care Physician [phone] Encounter [facility] [place] Date(s): 08/04/19 - 08/04/[address] [address]- [facility] Attending Physician: Buddy Medrano MD Allergies, Adverse Reactions, Alerts No Known Medication [...] Comment: [05/30/2018] vaccine information sheet provided in kyrgyz for patient. 2Result Comment: [05/02/2013] Flulavale [id number] 3Admin Note: VIS 03/14/2011 4Admin Note: vis [...] times a day for SOB and wheezing. Swedish instructions, # 1 each, Refills 5, Tot. [...] Mouth, 3 times a day, label in kyrgyz please, # 90 capsule, Refills 5, Tot.Refills 5, Maintenance, 09/11/18 12:34:51 EST, Route to Pharmacy Electronically, [id number], [facility] Start Date: 09/11/18 Status: Ordered hydrOXYzine hydrochloride 25 mg oral tablet 1 tablet = 25 mg, By Mouth, 3 times a day, PRN as needed for anxiety, PRN FOR ANXIETY. label in kyrgyz please, # 60 tablet, 1 Refills, Maintenance, 01/17/19 14:58:25 EDT, Tablet Start Date: 01/17/19 Status: Ordered multivitamin Therapeutic Multiple Vitamins oral [...] 1, tablet, By Mouth, Daily, label in kyrgyz please, # 60 tablet, Refills 2, Tot. Refills 2, Maintenance, 09/11/18 12:35:11 EST, Route to Pharmacy Electronically, [id number], [facility]. Start Date: 09/11/18 Status: Ordered QUEtiapine 50 mg oral tablet 1 tablet = 50 mg, By Mouth, Daily, # 30 tablet, 0 Refills, Maintenance, 09/23/18 10:07:51 EST, Tablet Start Date: 09/23/18 Status: Ordered sertraline 50 mg oral tablet 1 tablet = 50 mg, By Mouth, Daily, label in kyrgyz please, # 90 tablet, 2 Refills, Maintenance, [...] By Mouth, Daily, # 90 capsule, Refills 3, Tot. Refills 3, Maintenance, 09/11/1911:35:41 EST, Route to Pharmacy Electronically, [id number], [facility] Start Date: 09/11/18 Status: Ordered Problem List Condition Effective Dates Status Health Status Inform ant Abnormal weight loss(Confirmed) Active Respiratory failure, acute(Confirmed) Active Adenocarcinoma of prostate(Confirmed) Active Anemia, on all readings 2001 to 2013 - chronic(Confirmed) Active Asthma(Confirmed) 1 Active BPH [...]
--- OUTSIDE RECORDS SUMMARY | 2023-06-19 13:02 | XMS_ITS | Continuity of Care Document ---
Author Name Unknown Organization [facility] Address [address] [place] [address]- Care Team Providers Care Flour Distributor Name Role Phone Ruddy Perez DO Primary Care Physician [place] [facility] [place] 05[place]20 [facility] [address] [place] [address]- [facility] Allergies, Adverse Reactions, Alerts No Known Medication [...] Comment: [05/30/2018] vaccine information sheet provided in south sudanese for patient. 2Result Comment: [05/02/2013] Flulavale [id number] 3Admin Note: VIS 03/14/2011 4Admin Note: vis 11/26 5Admin Note: VIS 06/27 6Result Comment: Pt states he received flu shot last June Medications albuterol 0.083% inhalation solution 3 mL = 2.5 mg, Inhalation, Every 6 hours, PRN for wheezing, # 25 each, 6 Refills, Maintenance, 12/11/19 8:25:00 EDT, Solution, [facility] 170.18, cm, 09/19/19 14:54:00 EST, Height, 72.6, kg, 11/27/18 15:36:00 EDT, Dry Weight Start Date: 12/11/19 Status: Ordered albuterol CFC free 90 mcg/inh inhalation aerosol See Instructions, PRN, Inhalation 4 times a day for SOB and wheezing. Ugandan instructions, # 1 each, Refills 5, Tot. Refills 5, Maintenance, 12/05/19 15:38:00 EDT, Instructions Replace Required Details Inhaler, Route to Pharmacy Electronically, [id number]... Start Date: 12/05/19 Status: Ordered cloNIDine 0.1 mg oral tablet 0.1 mg, 1, tablet, By Mouth, 2 times a day, # 60 tablet, Refills 0, Tot. Refills 0, Maintenance, 12/25/19 15:58:00 EDT, Route to Pharmacy Electronically, [facility], 170.18, cm, 09/19/19 14:54:00 EST, Height, 72.6, kg, 11/27/18 15:36:0... Start Date: 12/25/19 Status: Ordered gabapentin 300 mg oral capsule 300 mg, 1, capsule, By Mouth, 3 times a day, label in south sudanese please, # 90 capsule, Refills 5, Tot.Refills 5, Maintenance, 10/13/19 16:04:00 EST, Route to Pharmacy Electronically, [facility], 170.18, cm, 09/19/19 14:54:00 EST, Height,... Start Date: 10/13/19 Status: Ordered hydrOXYzine hydrochloride 25 mg oral tablet 1 tablet = 25 mg, By Mouth, 3 times a day, PRN as needed for anxiety, PRN FOR ANXIETY. label in south sudanese please, # 60 tablet, 1 Refills, Maintenance, 12/25/19 15:58:00 EDT, Tablet, [facility], 170.18, cm, 09/19/19 14:54:00 EST, Height,... Start Date: 12/25/19 Status: Ordered multivitamin Therapeutic Multiple Vitamins oral tablet 1 tablet, By Mouth, Daily, # 60 tablet, 1 Refills, Maintenance, 12/05/19 15:38:00 EDT, Tablet, [facility], 1 tablet By Mouth Daily, 170.18, [...] tablet, 1 Refills, Maintenance, 12/05/19 15:38:00 EDT, [facility], 170.18, cm, 09/19/19 14:54:00 EST, Height, 72... Start Date: 12/05/19 Status: Ordered QUEtiapine 200 mg oral tablet 200 mg, 1, tablet, By Mouth, Daily, label in south sudanese please, # 60 tablet, Refills 2, Tot. Refills 2, Maintenance, 12/05/19 15:38:00 EDT, Route to Pharmacy Electronically, [facility], 170.18, cm, 09/19/19 14:54:00 EST, Height, 72.6, kg,... Start Date: 12/05/19 Status: Ordered QUEtiapine 50 mg oral tablet [...] capsule, Refills 0, Tot. Refills 0, Maintenance, 209:49:00 EDT, Route to Pharmacy Electronically, [facility] 170.18, cm, 09/19/19 14:54:00 EST, Height, 72.6, kg, 11/27/18 15:36:00 EDT,... Start Date: 02/28/20 Status: Ordered Problem List Condition Effective Dates [...]
--- OUTSIDE RECORDS SUMMARY | 2023-06-19 13:02 | XMS_ITS | Continuity of Care Document ---
Author Name Unknown Organization [facility] Address [address] [place] [address]- Care Team Providers Care Nuclear Plant Technical Advisor Name Role Phone Verito Carpenter DO Primary Care Physician Encounter [facility] [place] Date(s): 09/27/19 - 11/02/[address] [address]- [facility] Attending Physician: Artemio Gregg MD Admitting Physician: Artemio Gregg MD Referring Physician: Verito Carpenter DO Allergies, Adverse Reactions, Alerts No Known Medication [...] Comment: [05/30/2018] vaccine information sheet provided in hong konger for patient. 2Result Comment: [05/02/2013] Flulavale [id number] 3Admin Note: VIS 03/14/2011 4Admin Note: vis [...] times a day for SOB and wheezing. Slovenian instructions, # 1 each, Refills 5, Tot. [...] Mouth, 3 times a day, label in hong konger please, # 90 capsule, Refills 5, Tot.Refills 5, Maintenance, 10/13/19 16:04:00 EST, Route to Pharmacy Electronically, [facility], 170.18, cm, 09/19/19 14:54:00 EST, Height,... Start Date: 10/13/19 Status: Ordered hydrOXYzine hydrochloride 25 mg oral tablet 1 tablet = 25 mg, By Mouth, 3 times a day, PRN as needed for anxiety, PRN FOR ANXIETY. label in hong konger please, # 60 tablet, 1 Refills, Maintenance, 10/17/19 16:19:00 EST, Tablet, [facility], 170.18, cm, 09/19/19 14:54:00 EST, Height,... Start Date: 10/17/19 Status: Ordered multivitamin Therapeutic Multiple Vitamins oral [...] 1, tablet, By Mouth, Daily, label in hong konger please, # 60 tablet, Refills 2, Tot. Refills 2, Maintenance, 09/11/18 12:35:11 EST, Route to Pharmacy Electronically, [id number], [facility] Start Date: 09/11/18 Status: Ordered QUEtiapine 50 mg oral tablet 1 tablet = 50 mg, By Mouth, Daily, # 30 tablet, 0 Refills, Maintenance, 09/23/18 10:07:51 EST, Tablet Start Date: 09/23/18 Status: Ordered sertraline 50 mg oral tablet 1 tablet = 50 mg, By Mouth, Daily, label in hong konger please, # 90 tablet, 2 Refills, Maintenance, [...] Maintenance, 09/04/2018:12:00 EST, Route to Pharmacy Electronically, [facility] 170.18, cm, 03/28/19 14:33:00 EDT, Height, 72.6, [...]
--- OUTSIDE RECORDS SUMMARY | 2023-06-19 13:02 | XMS_ITS | Continuity of Care Document ---
Author Name Unknown Organization [facility] Address [address] [place] [address]- Care Team Providers Care Top Lift And Automatic Window Repairer Name Role Phone Missael Murphy DO Primary Care Physician [phone] Encounter [facility] [place] Date(s): 04/05/23 - 06/03/23 [facility] [address] [place] [id number] [[email or web address]] Attending Physician: Luke Randall MD Admitting Physician: Luke Randall MD Allergies, Adverse Reactions, Alerts No Known [...] 3 07/26/11 Gi anabela pneumococcal 23-valent vaccine 4 12/01/11 Given tetanus/diphtheria/pertussis, acel(Tdap) 5 08/03/11 Given 1Result Comment: [05/30/2018] vaccine information sheet provided in welsh for patient. 2Result Comment: [05/02/2013] Flulavale [id number] 3Admin Note: VIS 03/14/2011 4Admin Note: vis 11/26 5Admin Note: VIS 06/27 Medications Albuterol (Eqv-ProAir HFA) 90 mcg/inh inhalation aerosol See Instructions, USAR 2 INHALACIONES POR LA BOCA CADA 6 HORAS CUANDO SEA NECESARIO PARA CHARLENE,# 8.5 Gm, 1 Refills, Maintenance, 07/21/22 12:22:00 EST, [facility], [facility], USAR 2 INHALACIONES POR LA BOCA CADA 6 HORAS CUANDO SEA NECESARIO PA... Start Date: 07/21/22 Status: Ordered clonazePAM 1 mg oral tablet 0 Refills, Maintenance, 03/21/21 15:28:00 EDT, Partial fill upon patient request if the prescription is for a schedule II opioid drug. Start Date: 03/21/21 Status: Ordered Daily Kamila oral tablet See Instructions, SEKOU 1 TABLETA POR LA BOCA CADA SHANKAR, # 30 tablet, 5 Refills, Maintenance, 01/11/23 11:54:00 EDT, [facility], [facility], SEKOU 1 TABLETA POR LA BOCA CADA SHANKAR, 170, cm, 09/20/22 11:01:00 EST, Height, 70.3, kg, 09/20/22 11:01:00 EST... Start Date: 01/11/23 Status: Ordered Disposable Incontinence Bed Pads Disposable [...] SHANKAR, # 90 capsule, Refills 5, Maintenance, 02/14/23 21:04:00 EDT, Instructions Replace Required Details, Route to Pharmacy Electronically, [facility], 170, cm, 02/02/23 14:43:00 EDT... Start Date: 02/14/23 Status: Ordered gabapentin 300 mg oral capsule See Instructions, SEKOU 1 CAPSULA POR LA BOCA MASSIEL VECES AL SHANKAR, # 90 capsule, Refills 5, Tot. Refills 5, Maintenance, 08/25/22 17:46:00 EST, Instructions Replace Required Details, Route to Pharmacy Electronically, [facility], 170.18,... Start Date: 08/25/22 Status: Ordered hydrOXYzine hydrochloride 25 mg oral tablet 1 tablet = 25 mg, By Mouth, 3 times a day, PRN as needed for anxiety, PRN FOR ANXIETY. label in welsh please, # 60 tablet, 1 Refills, Maintenance, 12/25/19 15:58:00 EDT, Tablet, [facility], 170.18, cm, 09/19/19 14:54:00 EST, Height,... Start Date: 12/25/19 Status: Ordered Nutritional Supplements 1 can, By [...] DESAYUNO, # 30 capsule, 2 Refills, Maintenance, 03/19/23 12:59:00 EDT, [facility], 170, cm, 02/02/23 14:43:00EDT, Height, 70.3, kg, 09/20/22 11:01:00 EST, Dry W... Start Date: 03/19/23 Status: Ordered On methadone On methadone, See Instructions, # 1 each, Refills 0, Tot. Refills 0, Maintenance, he is on 60 mg Methadone at home, 11/04/17 8:01:25 EDT, Compound Start Date: 11/04/17 Status: Ordered QUEtiapine 200 mg oral tablet 200 mg, 1, tablet, By Mouth, Daily, label in welsh please, # 60 tablet, Refills 2, Tot. Refills 2, Maintenance, 05/18/20 8:10:00 EDT, Route to Pharmacy Electronically, [facility], 170.18, cm, 09/19/19 14:54:00 EST, Height, [...] 07/01/21 8:58:00 EST, Route to Pharmacy Electronically, [facility], Please print label and instructions in Tristanian., 170.18, cm, 06/20... Start Date: 07/01/21 Status: [...] prostate Confirmed 01/2016 Active Nocturia Confirmed Active *[phone] Desk Interviewer Landy Hidalgoertas Confirmed Active Tobacco use Confirmed Active 1mod persistent 2had bx per urology Social History Social History Type Response Smoking Status Current every day sm oker; Previous treatment: Nicotine replacement; Interested in cessation: Yes; Tobacco use times per day: 1 ppd; Number of years: 13; Total pack years: 13; entered on: 04/10/18 Sex Patient Care team information Care Team Personnel Name: Missael Murphy DO: [facility] Resident Member Role: PCP Address: Address: [address] [place] [address] [place] [address]- Name: Pearl Torre Position: [facility] Outreach Member Role: Lifetime Consulting Physician Care Team Related Persons Name: FELIBERTO MARTINS Address: [address] [address] Name: PT STATES, NONE
--- OUTSIDE RECORDS SUMMARY | 2023-06-19 13:02 | XMS_ITS | Continuity of Care Document ---
Author Name Unknown Organization [facility] Address [address] [place] [address]- Care Team Providers Care Crop Duster Helper Name Role Phone Ruddy Perez DO Primary Care Physician Encounter [facility] Date(s): 09/10/20 - 10/10/[address] [address] Allergies, Adverse Reactions, Alerts No Known Medication [...] thai for patient. 2Result Comment: [05/02/2013] Flulavale [id number] 3Admin Note: VIS 03/14/2011 4Admin Note: vis 11/26 5Admin Note: VIS 06/27 6Result Comment: Pt states he received flu shot last June Medications albuterol 0.083% inhalation solution 3 mL = 2.5 mg, Inhalation, Every 6 hours, PRN for wheezing, # 25 each, 6 Refills, Maintenance, 12/11/19 8:25:00 EDT, Solution, [facility] 170.18, cm, 09/19/19 14:54:00 EST, Height, [...] 05/17/20 8:49:00 EDT, Route to Pharmacy Electronically, [facility], 170.18, cm, 09/19/19 14:54:00 EST, Height,... Start Date: 05/17/20 Status: Ordered hydrOXYzine hydrochloride 25 mg oral tablet 1 tablet = 25 mg, By Mouth, 3 times a day, PRN as needed for anxiety, PRN FOR ANXIETY. label in thai please, # 60 tablet, 1 Refills, Maintenance, 12/25/19 15:58:00 EDT, Tablet, [facility]., 170.18, cm, 09/19/19 14:54:00 EST, Height,... Start Date: 12/25/19 Status: Ordered multivitamin Therapeutic Multiple Vitamins oral tablet 1 tablet, By Mouth, Daily, # 60 tablet, 1 Refills, Maintenance, 12/05/19 15:38:00 EDT, Tablet, [facility]., 1 tablet By Mouth Daily, 170.18, [...] tablet, 1 Refills, Maintenance, 12/05/19 15:38:00 EDT, [facility], 170.18, cm, 09/19/19 14:54:00 EST, Height, 72... Start Date: 12/05/19 Status: Ordered QUEtiapine 200 mg oral tablet 200 mg, 1, tablet, By Mouth, Daily, label in thai please, # 60 tablet, Refills 2, Tot. Refills 2, Maintenance, 05/18/20 8:10:00 EDT, Route to Pharmacy Electronically, [facility], 170.18, cm, 09/19/19 14:54:00 EST, Height, 72.6, [...] Replace Required Details, Route to Pharmacy Electronically, [facility], 170.18, cm, 09/19/19 14:54:00 EST, Height, 72.6, [...]
--- OUTSIDE RECORDS SUMMARY | 2023-06-19 13:02 | XMS_ITS | Continuity of Care Document ---
Author Name Unknown Organization [facility] Address [address] [place] [address]- Care Team Providers Care Group Rooms Coordinator Name Role Phone Missael Murphy DO Primary Care Physician [facility] Date[facility] 02/[facility]/23 - 03/04/23 [facility] [address] [place] [id number] Attending Physician: Mina Gutierrez Admitting Physician: AdmMina angela Referring Physician: AdmtrMina Allergies, Adverse Reactions, Alerts No Known Allergies [...] Comment: [05/30/2018] vaccine information sheet provided in vatican citizen for patient. 2Result Comment: [05/02/2013] Flulavale [id number] 3Admin Note: VIS 03/14/2011 4Admin Note: vis 11/26 5Admin Note: VIS 06/27 6Result Comment: Pt states he received flu shot last June Medications Albuterol (Eqv-ProAir HFA) 90 mcg/inh inhalation aerosol See Instructions, USAR 2 INHALACIONES POR LA BOCA CADA 6 HORAS CUANDO SEA NECESARIO PARA CHARLENE,# 8.5 Gm, 1 Refills, Maintenance, 07/21/22 12:22:00 EST, [facility], 25, USAR 2 INHALACIONES POR LA BOCA [...] tablet, 5 Refills, Maintenance, 01/11/23 11:54:00 EDT, [facility], 30, SEKOU 1 TABLETA POR LA BOCA [...] Required Details, Route to Pharmacy Electronically, [facility], 170, cm, 02/02/23 14:43:00 EDT... Start Date: 02/14/23 Status: Ordered gabapentin 300 mg oral capsule See Instructions, SEKOU 1 CAPSULA POR LA BOCA MASSIEL VECES AL SHANKAR, # 90 capsule, Refills 5, Tot. Refills 5, Maintenance, 08/25/22 17:46:00 EST, Instructions Replace Required Details, Route to Pharmacy Electronically, [facility], 170.18,... Start Date: 08/25/22 Status: Ordered hydrOXYzine hydrochloride 25 mg oral tablet 1 tablet = 25 mg, By Mouth, 3 times a day, PRN as needed for anxiety, PRN FOR ANXIETY. label in vatican citizen please, # 60 tablet, 1 Refills, Maintenance, 12/25/19 15:58:00 EDT, Tablet, [facility] 170.18, cm, 09/19/19 14:54:00 EST, Height,... Start [...] MINUTOS ANTES DE DESAYUNO, # 30 capsule, 1 Refills, Maintenance, 10/18/22 9:14:00 EST, [facility] 170, cm, 09/20/22 11:01:00 EST, Height, 70.3, kg, 09/20/22 11:01:00 EST, Dry We... Start Date: 10/18/22 Status: Ordered On methadone On methadone, See Instructions, # 1 each, Refills 0, Tot. Refills 0, Maintenance, he is on 60 mg Methadone at home, 11/04/17 8:01:25 EDT, Compound Start Date: 11/04/17 Status: Ordered QUEtiapine 200 mg oral tablet 200 mg, 1, tablet, By Mouth, Daily, label in vatican citizen please, # 60 tablet, Refills 2, Tot. Refills 2, Maintenance, 05/18/20 8:10:00 EDT, Route to Pharmacy Electronically, [facility]., 170.18, cm, 09/19/19 14:54:00 EST, Height, 72.6, [...] 07/01/21 8:58:00 EST, Route to Pharmacy Electronically, [facility], Please print label and instructions in Guamanian., 170.18, cm, 06/20... Start Date: 07/01/21 Status: [...] prostate Confirmed 01/2016 Active Nocturia Confirmed Active *[id number]-Paul aaron Guzmna Confirmed Active Tobacco use Confirmed Active 1mod persistent 2had bx per urology Social History Social History Type Response Smoking Status Current every day sm oker; Previous treatment: Nicotine replacement; Interested in cessation: Yes; Tobacco use times per day: 1 ppd; Number of years: 13; Total pack years: 13; entered on: 04/10/18 Sex Laboratory * Event Display: Non BH Lab Results Authored Date: * Event Display: Non BH Lab Results Authored Date: * Event Display: Non BH Lab Results Authored Date: Consult note * Nieves Gardner: PERFORM Event Display: Consultation Note Authored Date: * Nieves Gardner: PERFORM Event Display: Consultation Note Authored Date: CT Abdomen * Event Display: CT Scan Abdomen Authored Date: Radiology * Event Display: [place] Nuclear Medicine Authored Date: Note * Tanya Jhaveri: PERFORM, SIGN, VERIFY Event Display: Patient Education/Instruction Authored Date: [facility] Clinical Summary Person Information Visit Date 04/09/2015 1:00 PM Name LEXA BALTAZAR Age 60 Years 1955 12:00 AM PCP Shalom Montez MD PCP Sex Male Race White Ethnicity / Language Guamanian Reason for Visit: Allergy Info: No Known Medication Allergies Smoking Status Current every day smoker Vital Signs Height Weight BMI Blood Pressure / Temperature Pulse Rate Respiratory Rate 02 Sat Mode of Delivery / Medication Information Albuterol (ProAir HFA) , See Instructions, Inhalation 4 times a day for SOB and wheezing., Refills:0 Budesonide-Formoterol (Symbicort 80mcg/4.5mcg Inhaler) 2 puffs, Inhalation, twice a day, Refills: 0 Clonazepam (clonazepam 1 mg oral tablet) 1 tablet, Oral, 3 times a day, Refills: 0 Docusate (docusate sodium 100 mg oral tablet) 1 tablet, Oral, twice a day, with plenty of water, Refills: 0 Fluticasone (Flovent HFA 44 mcg/inh inhalation aerosol with adapter) 2 puffs, Inhalation, twice a day, 30 days, Refills: 11 Methadone 58 mg, Oral, Refills: 0 Naproxen (naproxen 375 mg oral tablet) 1 tablet, Oral, twice a day, with food for 10 days, 10 days,Refills: 0 Omeprazole (omeprazole 20 mg oral enteric coated capsule) 1 capsule, Oral, Daily, 90 days, Refills:3 Omeprazole (omeprazole 20 mg oral enteric coated capsule) 1 capsule, Oral, Daily, 90 days, Refills:3 Quetiapine (Seroquel 200 mg oral tablet) 1 tablet, Oral, Daily, Refills: 0 Sertraline (sertraline 100 mg oral tablet) 1 tablet, Oral, Daily, Refills: 0 Future Orders No future orders Orders Completed this Visit No visit orders documented Problem List Date Problem 05/05/14 Depression 05/14/14 GERD - Gastro-esophageal reflux disease 05/05/14 External bleeding hemorrhoids 05/05/14 Inguinal hernia 05/05/14 Elevated PSA 05/05/14 Tobacco abuse 05/05/14 Anxiety 05/05/14 Chronic hepatitis C 05/05/14 Asthma 06/30/13 Abnormal weight loss 09/10/14 Methadone dependence Diagnosis Procedures No Procedures Documented If the following labs have been performed in the last year, the most recent result is displayed below. Diagnostic Results Lab Result Value Date Lead Hemoglobin A1C 5.4 05/07/14 LDL HDL Triglycerides Total Cholesterol Disclaimer: The information provided is of a general nature and is intended to be used in conjunction with the recommendations and advice of your health care practitioner. Every effort has been made to ensure that the information provided is accurate and complete at the time it is provided to you however, as your needs change, or, as new information becomes available, different or additional instructions may be required. If you have questions, please consult with your primary care provider or pharmacist, as appropriate. This information is not intended to serve as substitution for assessment and evaluation by a qualified health care provider. If you do not have a primary care provider, you may find a [facility] provider by calling [facility] News Link at [phone]. For information about the plan of care including goals and instructions for your diagnosis, please see the patient education orders section of this document. Patient Visit Summary: Follow-Up Instructions With: Address: When: [facility] [address] [place] [address], [address] [place] [address] [facility] [place] 03/31/2015 3:00 AM Comments: REFERRAL NUMBER [id number] [address] ESTRADA Patient Education Materials Additional Instructions: Patient Care team information Care Team Personnel Name: Missael Murphy DO Position: [facility] Resident Member Role: PCP Address: Address: [address] [place] [address] Name: Pearl Torre Position: [facility] Outreach Member Role: Lifetime Consulting Physician Care Team Related Persons Name: FELIBERTO MARTINS Address: home [address] [place] [address] Name: STATES, NONE
--- OUTSIDE RECORDS SUMMARY | 2023-06-19 13:02 | XMS_ITS | Continuity of Care Document ---
Author Name Unknown Organization [facility] Address [address] [place] [address]- Care Team Providers Care Region Manager Name Role Phone Ruddy Perez DO Primary Care Physician Encounter [facility] Date(s): 08/11/21 - 09/10/21 [facility] [address] [place] [address]- Attending Physician: Mina Gutierrez Admitting Physician: AdmMina angela Referring Physician: Admtr, Mina Allergies, Adverse Reactions, Alerts No Known Allergies [...] Comment: [05/30/2018] vaccine information sheet provided in belizean for patient. 2Result Comment: [05/02/2013] Flulavale [id number] 3Admin Note: VIS 03/14/2011 4Admin Note: vis 11/26 5Admin Note: VIS 06/27 6Result Comment: Pt states he received flu shot last June Medications albuterol 0.083% inhalation solution 3 mL = 2.5 mg, Inhalation, Every 6 hours, PRN for wheezing, # 25 each, 6 Refills, Maintenance, 12/11/19 8:25:00 EDT, Solution, [facility]., 170.18, cm, 09/19/19 14:54:00 EST, Height, 72.6, kg, 11/27/18 15:36:00 EDT, Dry Weight Start Date: 12/11/19 Status: Ordered albuterol CFC free 90 mcg/inh inhalation aerosol See Instructions, PRN, Inhalation 4 times a day for SOB and wheezing. Barbadian instructions, # 1 each, Refills 5, Tot. Refills 5, Maintenance, 12/27/20 9:36:00 EDT, Instructions Replace Required Details Inhaler, Route to Pharmacy Electronically, [id number]... Start Date: 12/27/20 Status: Ordered clonazePAM 1 [...] Replace Required Details, Route to Pharmacy Electronically, [facility], 170.18, cm, 03/21/21 1... Start Date: 05/19/21 Status: Ordered hydrOXYzine hydrochloride 25 mg oral tablet 1 tablet = 25 mg, By Mouth, 3 times a day, PRN as needed for anxiety, PRN FOR ANXIETY. label in belizean please, # 60 tablet, 1 Refills, Maintenance, 12/25/19 15:58:00 EDT, Tablet, [facility]., 170.18, cm, 09/19/19 14:54:00 EST, Height,... Start Date: 12/25/19 Status: Ordered multivitamin Therapeutic Multiple Vitamins oral tablet 1 tablet, By Mouth, Daily, # 60 tablet, 5 Refills, Maintenance, 12/28/20 8:34:00 EDT, Tablet, [facility]., 1 tablet By Mouth Daily, 170.18, [...] tablet, 2 Refills, Maintenance, 05/11/21 15:34:00 EDT, [facility] 170.18, cm, 03/21/21 15:04:00 EDT, Height Start Date: 05/11/21 Status: Ordered QUEtiapine 200 mg oral tablet 200 mg, 1, tablet, By Mouth, Daily, label in belizean please, # 60 tablet, Refills 2, Tot. Refills 2, Maintenance, 05/18/20 8:10:00 EDT, Route to Pharmacy Electronically, [facility], 170.18, cm, 09/19/19 14:54:00 EST, Height, 72.6, [...] 07/01/21 8:58:00 EST, Route to Pharmacy Electronically, [facility], Please print label and instructions in Barbadian., 170.18, cm, 06/20... Start Date: 07/01/21 Status: [...] Response Smoking Status Current every day sm angel; Previous treatment: Nicotine replacement; Interested in cessation: Yes; Tobacco use times per day: 1 ppd; Number of years: 13; Total pack years: 13; entered on: 04/10/18 Sex
--- OUTSIDE RECORDS SUMMARY | 2023-06-19 13:02 | XMS_ITS | Continuity of Care Document ---
Author Name Unknown Organization [facility] Address [address] [place] [address]- Care Team Providers Care Drop Hammer Operator Helper Name Role Phone Ruddy Perez DO Primary Care Physician [phone] [facility]s): 04/10/21 - 05/27/21 [facility] [address] [place], [place] [address] Attending Physician: Not on Staff, Attending MD [...] Comment: [05/30/2018] vaccine information sheet provided in albanian for patient. 2Result Comment: [05/02/2013] Flulavale [id number] 3Admin Note: VIS 03/14/2011 4Admin Note: vis 11/26 5Admin Note: VIS 06/27 6Result Comment: Pt states he received flu shot last June Medications albuterol 0.083% inhalation solution 3 mL = 2.5 mg, Inhalation, Every 6 hours, PRN for wheezing, # 25 each, 6 Refills, Maintenance, 12/11/19 8:25:00 EDT, Solution, [facility]., 170.18, cm, 09/19/19 14:54:00 EST, Height, 72.6, kg, 11/27/18 15:36:00 EDT, Dry Weight Start Date: 12/11/19 Status: Ordered albuterol CFC free 90 mcg/inh inhalation aerosol See Instructions, PRN, Inhalation 4 times a day for SOB and wheezing. Bangladeshi instructions, # 1 each, Refills 5, Tot. Refills 5, Maintenance, 12/27/20 9:36:00 EDT, Instructions Replace Required Details Inhaler, Route to Pharmacy Electronically, [id number]... Start Date: 12/27/20 Status: Ordered clonazePAM 1 [...] Replace Required Details, Route to Pharmacy Electronically, [facility] 170.18, cm, 03/21/21 1... Start Date: 05/19/21 Status: Ordered hydrOXYzine hydrochloride 25 mg oral tablet 1 tablet = 25 mg, By Mouth, 3 times a day, PRN as needed for anxiety, PRN FOR ANXIETY. label in albanian please, # 60 tablet, 1 Refills, Maintenance, 12/25/19 15:58:00 EDT, Tablet, [facility], 170.18, cm, 09/19/19 14:54:00 EST, Height,... Start Date: 12/25/19 Status: Ordered multivitamin Therapeutic Multiple Vitamins oral tablet 1 tablet, By Mouth, Daily, # 60 tablet, 5 Refills, Maintenance, 12/28/20 8:34:00 EDT, Tablet, [facility], 1 tablet By Mouth Daily, [...] tablet, 2 Refills, Maintenance, 05/11/21 15:34:00 EDT, [facility], 170.18, cm, 03/21/21 15:04:00 EDT, Height Start Date: 05/11/21 Status: Ordered QUEtiapine 200 mg oral tablet 200 mg, 1, tablet, By Mouth, Daily, label in albanian please, # 60 tablet, Refills 2, Tot. Refills 2, Maintenance, 05/18/20 8:10:00 EDT, Route to Pharmacy Electronically, [facility], 170.18, cm, 09/19/19 14:54:00 EST, [...] Replace Required Details, Route to Pharmacy Electronically, [facility], 170.18, cm, 09/19/19 14:54:00 EST, Height, [...]
--- OUTSIDE RECORDS SUMMARY | 2023-06-19 13:02 | XMS_ITS | Continuity of Care Document ---
Author Name Unknown Organization [facility] Address [address] [place] [address]- Care Team Providers Care Editor Map Name Role Phone Ruddy Perez DO Primary Care Physician Encounter [facility] Date(s): 07/17/22 - 09/24/22 [facility] [address] [place] [address]- Attending Physician: Luke Randall MD Admitting Physician: [...] Comment: [05/30/2018] vaccine information sheet provided in malawian for patient. 2Result Comment: [05/02/2013] Flulavale [id number] 3Admin Note: VIS 03/14/2011 4Admin Note: vis 11/26 5Admin Note: VIS 06/27 6Result Comment: Pt states he received flu shot last June Medications Albuterol (Eqv-ProAir HFA) 90 mcg/inh inhalation aerosol See Instructions, USAR 2 INHALACIONES POR LA BOCA CADA 6 HORAS CUANDO SEA NECESARIO PARA CHARLENE,# 8.5 Gm, 1 Refills, Maintenance, 07/21/22 12:22:00 EST, [facility], 25, USAR 2 INHALACIONES POR LA BOCA [...] SHANKAR, # 30 tablet, 5 Refills, Maintenance, 07/21/22 12:22:00 EST, [facility], 30, SEKOU 1 TABLETA POR LA BOCA CADA SHANKAR, 170.18, cm, 07/01/21 8:02:00 EST, Height Start Date: 07/21/22 Status: Ordered Disposable Incontinence Bed Pads Disposable [...] Replace Required Details, Route to Pharmacy Electronically, [facility], 170.18,... Start Date: 08/25/22 Status: Ordered hydrOXYzine hydrochloride 25 mg oral tablet 1 tablet = 25 mg, By Mouth, 3 times a day, PRN as needed for anxiety, PRN FOR ANXIETY. label in malawian please, # 60 tablet, 1 Refills, Maintenance, 12/25/19 15:58:00 EDT, Tablet, [facility], 170.18, cm, 09/19/19 14:54:00 EST, Height,... Start [...] capsule, 2 Refills, Maintenance, 06/02/22 13:19:00 EDT, [facility], 170.18, cm, 07/01/21 8:02:00 EST, Height Start Date: 06/02/22 Status: Ordered On methadone On methadone, See Instructions, # 1 each, Refills 0, Tot. Refills 0, Maintenance, he is on 60 mg Methadone at home, 11/04/17 8:01:25 EDT, Compound Start Date: 11/04/17 Status: Ordered QUEtiapine 200 mg oral tablet 200 mg, 1, tablet, By Mouth, Daily, label in malawian please, # 60 tablet, Refills 2, Tot. Refills 2, Maintenance, 05/18/20 8:10:00 EDT, Route to Pharmacy Electronically, [facility], 170.18, cm, 09/19/19 14:54:00 EST, Height, 72.6, [...] 07/01/21 8:58:00 EST, Route to Pharmacy Electronically, [facility], Please print label and instructions in Guinean., 170.18, cm, 06/20... Start Date: 07/01/21 Status: [...] prostate Confirmed 01/2016 Active Nocturia Confirmed Active *[id number] Medical Affairs Leader Landy Guerrier Confirmed Active Tobacco use Confirmed Active 1mod persistent 2had bx per urology Social History Social History Type Response Smoking Status Current every day sm oker; Previous treatment: Nicotine replacement; Interested in cessation: Yes; Tobacco use times per day: 1 ppd; Number of years: 13; Total pack years: 13; entered on: 04/10/18 Sex Patient Care team information Care Team Personnel Name: Pearl Torre Position: [facility] Outreach Member Role: Lifetime Consulting Physician Name: Ruddy Perez DO Position: [facility] Resident Member Role: PCP Address: Address: [address] [place] [address]- Care Team Related Persons Name: FELIBERTO MARTINS Address: home [address] [facility] [address] [place] [address] Name: PT STATES, NONE
--- OUTSIDE RECORDS SUMMARY | 2023-06-19 13:02 | XMS_ITS | Continuity of Care Document ---
Author Name Unknown Organization [facility] Address [address] [place] [address]- Care Team Providers Care Shuttle Final Inspector Name Role Phone Ruddy Perez DO Primary Care Physician Encounter [facility] Date(s): 08/06/20 - 09/26/20 [facility] [address] [place] [id number] Attending Physician: Luke Randall MD Admitting Physician: Luke Randall MD Referring Physician: Ruddy Perez DO Allergies, Adverse Reactions, Alerts No Known [...] Comment: [05/30/2018] vaccine information sheet provided in st helenian for patient. 2Result Comment: [05/02/2013] Flulavale [id number] 3Admin Note: VIS 03/14/2011 4Admin Note: vis 11/26 5Admin Note: VIS 06/27 6Result Comment: Pt states he received flu shot last June Medications albuterol 0.083% inhalation solution 3 mL = 2.5 mg, Inhalation, Every 6 hours, PRN for wheezing, # 25 each, 6 Refills, Maintenance, 12/11/19 8:25:00 EDT, Solution, [facility] 170.18, cm, 09/19/19 14:54:00 EST, Height, 72.6, kg, 11/27/18 15:36:00 EDT, Dry Weight Start Date: 12/11/19 Status: Ordered albuterol CFC free 90 mcg/inh inhalation aerosol See Instructions, PRN, Inhalation 4 times a day for SOB and wheezing. Japanese instructions, # 1 each, Refills 5, Tot. [...] Mouth, 3 times a day, label in [place] helenian please, # 90 capsule, Refills 5, Tot.Refills 5, Maintenance, 05/17/20 8:49:00 EDT, Route to Pharmacy Electronically, [facility] 170.18, cm, 09/19/19 14:54:00 EST, Height,... Start Date: 05/17/20 Status: Ordered hydrOXYzine hydrochloride 25 mg oral tablet 1 tablet = 25 mg, By Mouth, 3 times a day, PRN as needed for anxiety, PRN FOR ANXIETY. label in st helenian please, # 60 tablet, 1 Refills, Maintenance, 12/25/19 15:58:00 EDT, Tablet, [facility] 170.18, cm, 09/19/19 14:54:00 EST, Height,... Start Date: 12/25/19 Status: Ordered multivitamin Therapeutic Multiple Vitamins oral tablet 1 tablet, By Mouth, Daily, # 60 tablet, 1 Refills, Maintenance, 12/05/19 15:38:00 EDT, Tablet, [facility] 1 tablet By Mouth Daily, 170.18, [...] tablet, 1 Refills, Maintenance, 12/05/19 15:38:00 EDT, [facility], 170.18, cm, 09/19/19 14:54:00 EST, Height, 72... Start Date: 12/05/19 Status: Ordered QUEtiapine 200 mg oral tablet 200 mg, 1, tablet, By Mouth, Daily, label in st helenian please, # 60 tablet, Refills 2, Tot. Refills 2, Maintenance, 05/18/20 8:10:00 EDT, Route to Pharmacy Electronically, [facility], 170.18, cm, 09/19/19 14:54:00 EST, Height, [...] Replace Required Details, Route to Pharmacy Electronically, [facility], 170.18, cm, 09/19/19 14:54:00 EST, Height, 72.6, [...]
--- OUTSIDE RECORDS SUMMARY | 2023-06-19 13:02 | XMS_ITS | Continuity of Care Document ---
Author Name Unknown Organization [facility] Address [address] [place] [address]- Care Team Providers Care Director Pediatric Name Role Phone Ruddy Perez DO Primary Care Physician Encounter [facility] Date(s): 03/10/22 - 04/09/22 [facility] [address] [place], [place] [address] Attending Physician: Mina Gutierrez Admitting Physician: AdmtrMina Referring Physician: Admtr, ArCarlos Allergies, Adverse Reactions, Alerts No Known Allergies [...] Comment: [05/30/2018] vaccine information sheet provided in anguillan for patient. 2Result Comment: [05/02/2013] Flulavale [id number] 3Admin Note: VIS 03/14/2011 4Admin Note: vis 11/26 5Admin Note: VIS 06/27 6Result Comment: Pt states he received flu shot last June Medications albuterol 0.083% inhalation solution 3 mL = 2.5 mg, Inhalation, Every 6 hours, PRN for wheezing, # 25 each, 6 Refills, Maintenance, 12/11/19 8:25:00 EDT, Solution, [facility], 170.18, cm, 09/19/19 14:54:00 EST, Height, 72.6, kg, 11/27/18 15:36:00 EDT, Dry Weight Start Date: 12/11/19 Status: Ordered albuterol CFC free 90 mcg/inh inhalation aerosol 2, puffs, Inhalation, Every 6 hours, PRN, # 18 Gm, Refills 1, Tot. Refills 1, Maintenance, 02/24/2217:51:00 EDT, Inhaler, Route to Pharmacy Electronically, [id number], [facility], 170.18, cm, 07/01/21 8:02:00... Start Date: [...] Replace Required Details, Route to Pharmacy Electronically, [facility], 170.18, cm, 07/01/21... Start Date: 11/07/21 Status: Ordered hydrOXYzine hydrochloride 25 mg oral tablet 1 tablet = 25 mg, By Mouth, 3 times a day, PRN as needed for anxiety, PRN FOR ANXIETY. label in anguillan please, # 60 tablet, 1 Refills, Maintenance, 12/25/19 15:58:00 EDT, Tablet, [facility], 170.18, cm, 09/19/19 14:54:00 EST, Height,... Start Date: 12/25/19 Status: Ordered multivitamin Therapeutic Multiple Vitamins oral tablet 1 tablet, By Mouth, Daily, # 30 tablet, 5 Refills, Maintenance, 01/02/22 20:35:00 EDT, Tablet, [facility], 1 tablet By Mouth Daily, 170.18, [...] tablet, 2 Refills, Maintenance, 01/31/22 12:13:00 EDT, [facility] 170.18, cm, 07/01/21 8:02:00 EST, Height Start Date: 01/31/22 Status: Ordered QUEtiapine 200 mg oral tablet 200 mg, 1, tablet, By Mouth, Daily, label in anguillan please, # 60 tablet, Refills 2, Tot. Refills 2, Maintenance, 05/18/20 8:10:00 EDT, Route to Pharmacy Electronically, [facility] 170.18, cm, 09/19/19 14:54:00 EST, Height, 72.6, [...] 07/01/21 8:58:00 EST, Route to Pharmacy Electronically, [facility], Please print label and instructions in Yemeni., 170.18, cm, 06/20... Start Date: 07/01/21 Status: [...]
--- OUTSIDE RECORDS SUMMARY | 2023-06-19 13:02 | XMS_ITS | Continuity of Care Document ---
Author Name Unknown Organization [facility] Address [address] [place] [address]- Care Team Providers Care Stereo Equipment Salesperson Name Role Phone Missael Murphy DO Primary Care Physician [phone] [place] [facility] [place] 03/04/23 [facility] [address] [place] [id number] Allergies, Adverse Reactions, Alerts No [...] Comment: [05/30/2018] vaccine information sheet provided in moldovan for patient. 2Result Comment: [05/02/2013] Flulavale [id number] 3Admin Note: VIS 03/14/2011 4Admin Note: vis 11/26 5Admin Note: VIS 06/27 6Result Comment: Pt states he received flu shot last June Medications Albuterol (Eqv-ProAir HFA) 90 mcg/inh inhalation aerosol See Instructions, USAR 2 INHALACIONES POR LA BOCA CADA 6 HORAS CUANDO SEA NECESARIO PARA CHARLENE,# 8.5 Gm, 1 Refills, Maintenance, 07/21/22 12:22:00 EST, [facility], 25, USAR 2 INHALACIONES POR [...] tablet, 5 Refills, Maintenance, 01/11/23 11:54:00 EDT, [facility], 30, SEKOU 1 TABLETA POR [...] Replace Required Details, Route to Pharmacy Electronically, [facility], 170, cm, 02/02/23 14:43:00 EDT... Start Date: 02/14/23 Status: Ordered gabapentin 300 mg oral capsule See Instructions, SEKOU 1 CAPSULA POR LA BOCA MASSIEL VECES AL SHANKAR, # 90 capsule, Refills 5, Tot. Refills 5, Maintenance, 08/25/22 17:46:00 EST, Instructions Replace Required Details, Route to Pharmacy Electronically, [facility], 170.18,... Start Date: 08/25/22 Status: Ordered hydrOXYzine hydrochloride 25 mg oral tablet 1 tablet = 25 mg, By Mouth, 3 times a day, PRN as needed for anxiety, PRN FOR ANXIETY. label in moldovan please, # 60 tablet, 1 Refills, Maintenance, [...] capsule, 1 Refills, Maintenance, 10/18/22 9:14:00 EST, [facility], 170, cm, 09/20/22 11:01:00 EST, Height, 70.3, [...] 1, tablet, By Mouth, Daily, label in moldovan please, # 60 tablet, Refills 2, Tot. Refills 2, Maintenance, 05/18/20 8:10:00 EDT, Route to Pharmacy Electronically, [facility] 170.18, cm, 09/19/19 14:54:00 EST, Height, [...] Hospital, Please print label and instructions in Barbadian., [...] prostate Confirmed 01/2016 Active Nocturia Confirmed Active *[id number]-Paul aaron Guzman Confirmed Active Tobacco use Confirmed Active 1mod persistent 2had bx per urology Social History Social History Type Response Smoking Status Current every day sm oker; Previous treatment: Nicotine replacement; Interested in cessation: Yes; Tobacco use times per day: 1 ppd; Number of years: 13; Total pack years: 13; entered on: 8/22/18 Sex Patient Care team information Care Team Personnel Name: Missael Murphy DO Position: [facility] Resident Member Role: PCP Address: Address: [address] [place] [address] [place] [address]- Name: Pearl Torre Position: [facility] Outreach Member Role: Lifetime Consulting Physician Care Team Related Persons Name: FELIBERTO MARTINS Address: home [address] [address] Name: PT STATES, NONE
--- OUTSIDE RECORDS SUMMARY | 2023-06-19 13:02 | XMS_ITS | Continuity of Care Document ---
Author Name Unknown Organization [facility] Address [address] [place] [address]- Care Team Providers Care Automotive Engineering Technician Name Role Phone Ruddy Perez DO Primary Care Physician Encounter [facility] Date(s): 05/18/21 - 06/17/21 [facility] [address] [place], [place] [address] Allergies, Adverse Reactions, Alerts No [...] Comment: [05/30/2018] vaccine information sheet provided in australian for patient. 2Result Comment: [05/02/2013] Flulavale [id number] 3Admin Note: VIS 03/14/2011 4Admin Note: vis 11/26 5Admin Note: VIS 06/27 6Result Comment: Pt states he received flu shot last June Medications albuterol 0.083% inhalation solution 3 mL = 2.5 mg, Inhalation, Every 6 hours, PRN for wheezing, # 25 each, 6 Refills, Maintenance, 12/11/19 8:25:00 EDT, Solution, [facility] 170.18, cm, 09/19/19 14:54:00 EST, Height, 72.6, kg, 11/27/18 15:36:00 EDT, Dry Weight Start Date: 12/11/19 Status: Ordered albuterol CFC free 90 mcg/inh inhalation aerosol See Instructions, PRN, Inhalation 4 times a day for SOB and wheezing. Chinese instructions, # 1 each, Refills 5, Tot. Refills 5, Maintenance, 12/27/20 9:36:00 EDT, Instructions Replace Required Details Inhaler, Route to Pharmacy Electronically, [id number]... Start Date: 12/27/20 Status: Ordered clonazePAM 1 [...] Replace Required Details, Route to Pharmacy Electronically, [facility], 170.18, cm, 03/21/21 1... Start Date: 05/19/21 Status: Ordered hydrOXYzine hydrochloride 25 mg oral tablet 1 tablet = 25 mg, By Mouth, 3 times a day, PRN as needed for anxiety, PRN FOR ANXIETY. label in australian please, # 60 tablet, 1 Refills, Maintenance, 12/25/19 15:58:00 EDT, Tablet, [facility], 170.18, cm, 09/19/19 14:54:00 EST, Height,... Start Date: 12/25/19 Status: Ordered multivitamin Therapeutic Multiple Vitamins oral tablet 1 tablet, By Mouth, Daily, # 60 tablet, 5 Refills, Maintenance, 12/28/20 8:34:00 EDT, Tablet, [facility], 1 tablet [...] tablet, 2 Refills, Maintenance, 05/11/21 15:34:00 EDT, [facility], 170.18, cm, 03/21/21 15:04:00 EDT, Height Start Date: 05/11/21 Status: Ordered QUEtiapine 200 mg oral tablet 200 mg, 1, tablet, By Mouth, Daily, label in australian please, # 60 tablet, Refills 2, Tot. Refills 2, Maintenance, 05/18/20 8:10:00 EDT, Route to Pharmacy Electronically, [facility] [...] Replace Required Details, [facility], 170.18, cm, 09/19/19 14:54:00 EST, Height, 72.6, [...]
--- OUTSIDE RECORDS SUMMARY | 2023-06-19 13:03 | XMS_ITS | Continuity of Care Document ---
Author Name Unknown Organization [facility] Address [address] [place] [address]- Care Team Providers Care Life Science Technician Name Role Phone Ruddy Perez DO Primary Care Physician [place] [facility] [place] 05/13/20 - 06/12/20 [facility] [address] [place] [address]- [facility] Allergies, Adverse Reactions, Alerts No Known Medication [...] Comment: [05/30/2018] vaccine information sheet provided in swedish for patient. 2Result Comment: [05/02/2013] Flulavale [id number] 3Admin Note: VIS 03/14/2011 4Admin Note: vis 11/26 5Admin Note: VIS 06/27 6Result Comment: Pt states he received flu shot last June Medications albuterol 0.083% inhalation solution 3 mL = 2.5 mg, Inhalation, Every 6 hours, PRN for wheezing, # 25 each, 6 Refills, Maintenance, 12/11/19 8:25:00 EDT, Solution, [facility] 170.18, cm, 09/19/19 14:54:00 EST, Height, 72.6, kg, 11/27/18 15:36:00 EDT, Dry Weight Start Date: 12/11/19 Status: Ordered albuterol CFC free 90 mcg/inh inhalation aerosol See Instructions, PRN, Inhalation 4 times a day for SOB and wheezing. Bermudian instructions, # 1 each, Refills 5, Tot. Refills 5, Maintenance, 12/05/19 15:38:00 EDT, Instructions Replace Required Details Inhaler, Route to Pharmacy Electronically, [id number]... Start Date: 12/05/19 Status: Ordered cloNIDine 0.1 mg oral tablet 0.1 mg, 1, tablet, By Mouth, 2 times a day, # 60 tablet, Refills 0, Tot. Refills 0, Maintenance, 05/17/20 8:49:00 EDT, Route to Pharmacy Electronically, [facility], 170.18, cm, 09/19/19 14:54:00 EST, Height, 72.6, kg, 11/27/18 15:36:00... Start Date: 05/17/20 Status: Ordered gabapentin 300 mg oral capsule 300 mg, 1, capsule, By Mouth, 3 times a day, label in swedish please, # 90 capsule, Refills 5, Tot.Refills 5, Maintenance, 05/17/20 8:49:00 EDT, Route to Pharmacy Electronically, [facility], 170.18, cm, 09/19/19 14:54:00 EST, Height,... Start Date: 05/17/20 Status: Ordered hydrOXYzine hydrochloride 25 mg oral tablet 1 tablet = 25 mg, By Mouth, 3 times a day, PRN as needed for anxiety, PRN FOR ANXIETY. label in swedish please, # 60 tablet, 1 Refills, Maintenance, 12/25/19 15:58:00 EDT, Tablet, [facility], 170.18, cm, 09/19/19 14:54:00 EST, Height,... Start Date: 12/25/19 Status: Ordered multivitamin Therapeutic Multiple Vitamins oral tablet 1 tablet, By Mouth, Daily, # 60 tablet, 1 Refills, Maintenance, 12/05/19 15:38:00 EDT, Tablet, [facility], 1 tablet By Mouth Daily, 170.18, cm, [...] tablet, 1 Refills, Maintenance, 12/05/19 15:38:00 EDT, [facility], 170.18, cm, 09/19/19 14:54:00 EST, Height, 72... Start Date: 12/05/19 Status: Ordered QUEtiapine 200 mg oral tablet 200 mg, 1, tablet, By Mouth, Daily, label in swedish please, # 60 tablet, Refills 2, Tot. Refills 2, Maintenance, 05/18/20 8:10:00 EDT, Route to Pharmacy Electronically, [facility], 170.18, cm, 09/19/19 14:54:00 EST, Height, 72.6, [...] capsule, Refills 0, Tot. Refills 0, Maintenance, 208:49:00 EDT, Route to Pharmacy Electronically, [facility] 170.18, cm, 09/19/19 14:54:00 EST, Height, 72.6, kg, 11/27/18 15:36:00 EDT,... Start Date: 05/17/20 Status: Ordered Problem List Condition Effective Dates [...]
--- OUTSIDE RECORDS SUMMARY | 2023-06-19 13:03 | XMS_ITS | Continuity of Care Document ---
Author Name Unknown Organization [facility] Address [address] [place] [address]- Care Team Providers Care Organisation And Methods Analyst Name Role Phone Ruddy Perez DO Primary Care Physician Encounter [facility] [place] Date(s): 04/12/21 - 05/12/21 [facility] [address] [place] [id number] Allergies, Adverse Reactions, Alerts No Known [...] Comment: [05/30/2018] vaccine information sheet provided in bahraini for patient. 2Result Comment: [05/02/2013] Flulavale [id number] 3Admin Note: VIS 03/14/2011 4Admin Note: vis 11/26 5Admin Note: VIS 06/27 6Result Comment: Pt states he received flu shot last June Medications albuterol 0.083% inhalation solution 3 mL = 2.5 mg, Inhalation, Every 6 hours, PRN for wheezing, # 25 each, 6 Refills, Maintenance, 12/11/19 8:25:00 EDT, Solution, [facility] 170.18, cm, 09/19/19 14:54:00 EST, Height, 72.6, kg, 11/27/18 15:36:00 EDT, Dry Weight Start Date: 12/11/19 Status: Ordered albuterol CFC free 90 mcg/inh inhalation aerosol See Instructions, PRN, Inhalation 4 times a day for SOB and wheezing. Syriac instructions, # 1 each, Refills 5, Tot. Refills 5, Maintenance, 12/27/20 9:36:00 EDT, Instructions Replace Required Details Inhaler, Route to Pharmacy Electronically, [id number]... Start Date: 12/27/20 Status: Ordered clonazePAM 1 [...] Replace Required Details, [facility] to [facility]ically[facility], 170.18, cm, 09/03/20 16:58:00 EST, Height Start Date: 11/30/20 Status: Ordered hydrOXYzine hydrochloride 25 mg oral tablet 1 tablet = 25 mg, By Mouth, 3 times a day, PRN as needed for anxiety, PRN FOR ANXIETY. label in bahraini please, # 60 tablet, 1 Refills, Maintenance, 12/25/19 15:58:00 EDT, Tablet, [facility], 170.18, cm, 09/19/19 14:54:00 EST, Height,... Start Date: 12/25/19 Status: Ordered multivitamin Therapeutic Multiple Vitamins oral tablet 1 tablet, By Mouth, Daily, # 60 tablet, 5 Refills, Maintenance, 12/28/20 8:34:00 EDT, Tablet, [facility], 1 tablet By Mouth Daily, 170.18, [...] tablet, 2 Refills, Maintenance, 05/11/21 15:34:00 EDT, [facility], 170.18, cm, 03/21/21 15:04:00 EDT, Height Start Date: 05/11/21 Status: Ordered QUEtiapine 200 mg oral tablet 200 mg, 1, tablet, By Mouth, Daily, label in bahraini please, # 60 tablet, Refills 2, Tot. Refills 2, Maintenance, 05/18/20 8:10:00 EDT, Route to Pharmacy Electronically, [facility], 170.18, cm, 09/19/19 14:54:00 EST, Height, [...] Replace Required Details, [facility] to Pharmacy Electronically, [facility], 170.18, cm, 09/19/19 14:54:00 EST, Height, [...]
--- OUTSIDE RECORDS SUMMARY | 2023-06-19 13:03 | XMS_ITS | Continuity of Care Document ---
Author Name Unknown Organization [facility] Address [address] [place] [address]- Care Team Providers Care Improvement Nurse Name Role Phone Ruddy Perez DO Primary Care Physician [phone] [place] [facility] [place]22 - 10/11/22 [facility] [address] [place] [address]- Attending Physician: Luke Randall MD Admitting Physician: [...] Comment: [05/30/2018] vaccine information sheet provided in french for patient. 2Result Comment: [05/02/2013] Flulavale [id number] 3Admin Note: VIS 03/14/2011 4Admin Note: vis 11/26 5Admin Note: VIS 06/27 6Result Comment: Pt states he received flu shot last June Medications Albuterol (Eqv-ProAir HFA) 90 mcg/inh inhalation aerosol See Instructions, USAR 2 INHALACIONES POR LA BOCA CADA 6 HORAS CUANDO SEA NECESARIO PARA CHARLENE,# 8.5 Gm, 1 Refills, Maintenance, 07/21/22 12:22:00 EST, [facility], 25, USAR 2 INHALACIONES POR LA BOCA [...] tablet, 5 Refills, Maintenance, 07/21/22 12:22:00 EST, [facility], 30, SEKOU 1 TABLETA POR [...] Replace Required Details, [facility],... Start Date: 08/25/22 Status: Ordered hydrOXYzine hydrochloride 25 mg oral tablet 1 tablet = 25 mg, By Mouth, 3 times a day, PRN as needed for anxiety, PRN FOR ANXIETY. label in french please, # 60 tablet, 1 Refills, Maintenance, 12/25/19 15:58:00 EDT, Tablet, [facility], 170.18, cm, 09/19/19 14:54:00 EST, Height,... Start [...] capsule, 2 Refills, Maintenance, 06/02/22 13:19:00 EDT, [facility], 170.18, cm, 07/01/21 8:02:00 EST, Height Start Date: 06/02/22 Status: Ordered On methadone On methadone, See Instructions, # 1 each, Refills 0, Tot. Refills 0, Maintenance, he is on 60 mg Methadone at home, 11/04/17 8:01:25 EDT, Compound Start Date: 11/04/17 Status: Ordered QUEtiapine 200 mg oral tablet 200 mg, 1, tablet, By Mouth, Daily, label in french please, # 60 tablet, Refills 2, Tot. Refills 2, Maintenance, 05/18/20 8:10:00 EDT, Route to Pharmacy Electronically, [facility], 170.18, cm, 09/19/19 14:54:00 EST, Height, 72.6, [...] 07/01/21 8:58:00 EST, [facility], Please print label and instructions in Andorran., 170.18, cm, 06/20... 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
--- OUTSIDE RECORDS SUMMARY | 2023-06-19 13:03 | XMS_ITS | Continuity of Care Document ---
Author Name Unknown Organization [facility] Address [address] [place] [address]- Care Team Providers Care Architecture Intern Name Role Phone Missael Murphy DO Primary Care Physician [place] [facility] [place] 04/05/23 - 05/05/23 [facility] [address] [place], [place] [address] Allergies, Adverse Reactions, Alerts No [...] Comment: [05/30/2018] vaccine information sheet provided in north korean for patient. 2Result Comment: [05/02/2013] Flulavale [id number] 3Admin Note: VIS 03/14/2011 4Admin Note: vis 11/26 5Admin Note: VIS 06/27 Medications Albuterol (Eqv-ProAir HFA) 90 mcg/inh inhalation aerosol See Instructions, USAR 2 INHALACIONES POR LA BOCA CADA 6 HORAS CUANDO SEA NECESARIO PARA CHARLENE,# 8.5 Gm, 1 Refills, Maintenance, 07/21/22 12:22:00 EST, [facility], 25, USAR 2 INHALACIONES POR LA [...] tablet, 5 Refills, Maintenance, 01/11/23 11:54:00 EDT, [facility], 30, SEKOU 1 TABLETA POR LA BOCA [...] Replace Required Details, [facility], [facility], 170, cm, 02/02/23 14:43:00 EDT... Start Date: 02/14/23 Status: Ordered gabapentin 300 mg oral capsule See Instructions, SEKOU 1 CAPSULA POR LA BOCA MASSIEL VECES AL SHANKAR, # 90 capsule, Refills 5, Tot. Refills 5, Maintenance, 08/25/22 17:46:00 EST, Instructions Replace Required Details, Route to Pharmacy Electronically, [facility], 170.18,... Start Date: 08/25/22 Status: Ordered hydrOXYzine hydrochloride 25 mg oral tablet 1 tablet = 25 mg, By Mouth, 3 times a day, PRN as needed for anxiety, PRN FOR ANXIETY. label in north korean please, # 60 tablet, 1 Refills, Maintenance, 12/25/19 15:58:00 EDT, Tablet, [facility], 170.18, cm, 09/19/19 14:54:00 EST, Height,... Start [...] capsule, 2 Refills, Maintenance, 03/19/23 12:59:00 EDT, [facility], 170, cm, 02/02/23 14:43:00EDT, Height, 70.3, kg, 09/20/22 11:01:00 EST, Dry W... Start Date: 03/19/23 Status: Ordered On methadone On methadone, See Instructions, # 1 each, Refills 0, Tot. Refills 0, Maintenance, he is on 60 mg Methadone at home, 11/04/17 8:01:25 EDT, Compound Start Date: 11/04/17 Status: Ordered QUEtiapine 200 mg oral tablet 200 mg, 1, tablet, By Mouth, Daily, label in north korean please, # 60 tablet, Refills 2, Tot. Refills 2, Maintenance, 05/18/20 8:10:00 EDT, Route to Pharmacy Electronically, [facility], 170.18, cm, 09/19/19 14:54:00 EST, Height, 72.6, [...] 07/01/21 8:58:00 EST, Route to Pharmacy Electronically, [facility]., Please print label and instructions in Latvian., 170.18, cm, 06/20... 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
--- OUTSIDE RECORDS SUMMARY | 2023-06-19 13:03 | XMS_ITS | Continuity of Care Document ---
Author Name Unknown Organization [facility] Address [address] [place] [address]- Care Team Providers Care Production Planning Manager Name Role Phone Ruddy Perez DO Primary Care Physician [phone] Encounter [facility] Date(s): 10/06/22 - 11/05/22 [facility] [address] [place] [address]- Attending Physician: Mina Gutierrez Admitting Physician: AdmMina [...] Comment: [05/30/2018] vaccine information sheet provided in cambodian for patient. 2Result Comment: [05/02/2013] Flulavale [id number] 3Admin Note: VIS 03/14/2011 4Admin Note: vis 11/26 5Admin Note: VIS 06/27 6Result Comment: Pt states he received flu shot last June Medications Albuterol (Eqv-ProAir HFA) 90 mcg/inh inhalation aerosol See Instructions, USAR 2 INHALACIONES POR LA BOCA CADA 6 HORAS CUANDO SEA NECESARIO PARA CHARLENE,# 8.5 Gm, 1 Refills, Maintenance, 07/21/22 12:22:00 EST, [facility], 25, USAR 2 INHALACIONES POR LA [...] tablet, 5 Refills, Maintenance, 07/21/22 12:22:00 EST, [facility], 30, SEKOU 1 TABLETA POR LA [...] Replace Required Details, Route to Pharmacy Electronically, [facility], 170.18,... Start Date: 08/25/22 Status: Ordered hydrOXYzine hydrochloride 25 mg oral tablet 1 tablet = 25 mg, By Mouth, 3 times a day, PRN as needed for anxiety, PRN FOR ANXIETY. label in cambodian please, # 60 tablet, 1 Refills, Maintenance, 12/25/19 15:58:00 EDT, Tablet, [facility]., 170.18, cm, 09/19/19 14:54:00 EST, Height,... [...] capsule, 1 Refills, Maintenance, 10/18/22 9:14:00 EST, [facility], 170, cm, 09/20/22 11:01:00 EST, Height, [...] 1, tablet, By Mouth, Daily, label in cambodian please, # 60 tablet, Refills 2, Tot. Refills 2, Maintenance, 05/18/20 8:10:00 EDT, Route to Pharmacy Electronically, [facility], 170.18, cm, 09/19/19 14:54:00 EST, Height, 72.6, [...] to Pharmacy Electronically[facility], Please print label and instructions in Argentine., 170.18, cm, 06/20... 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 Guerrier Confirmed Active Tobacco use Confirmed Active 1mod persistent 2had bx per urology Social History Social History Type Response Smoking Status Current every day sm oker; Previous treatment: Nicotine replacement; Interested in cessation: Yes; Tobacco use times per day: 1 ppd; Number of years: 13; Total pack years: 13; entered on: 04/10/18 Sex Note * Event Display: [place] Nuclear Medicine Authored Date: * Event Display: Non BH Lab Results Authored Date: * Event Display: Non BH Lab Results Authored Date: * Event Display: Non BH Lab Results Authored Date: * Tanya Jhaveri: PERFORM, SIGN, VERIFY Event Display: Patient Education/Instruction Authored Date: [id number] [facility] Clinical Summary Person Information Visit Date 04/09/2015 1:00 PM Name LEXA BALTAZAR Age 60 Years 1955 12:00 AM PCP Shalom Montez MD PCP Sex Male Race White Ethnicity / Language Argentine Reason for Visit: Allergy Info: No Known [...] care provider, you may find a [facility] provider by calling [facility] at [phone]. For information about the plan of care including goals and instructions for your diagnosis, please see the patient education orders section of this document. Patient Visit Summary: Follow-Up Instructions With: Address: When: [facility] [address] [place] [address], [address] [place] [address] [facility] (1) 03/31/2015 3:00 AM Comments: REFERRAL NUMBER [id number] [address] ESTRADA Patient Education Materials Additional Instructions: CT Abdomen * Event Display: CT Scan Abdomen Authored Date: [id number] Patient Care team information Care Team Personnel Name: Pearl Torre Position: [facility] Outreach Member Role: Lifetime Consulting Physician Name: Ruddy Perez DO Position: [facility] Resident Member Role: PCP Address: Address: [address] [place] [address]- Care Team Related Persons Name: FELIBERTO MARTINS Address: home [address] [address] Name: PT STATES, NONE
--- OUTSIDE RECORDS SUMMARY | 2023-06-19 13:03 | XMS_ITS | Continuity of Care Document ---
Author Name Unknown Organization [facility] Address [address] [place] [address]- Care Team Providers Care Engine Assembler Name Role Phone Ruddy Perez DO Primary Care Physician Encounter [facility] Date(s): 02/03/21 - 03/05/21 [facility] [address], [place] [address] [place] Attending Physician: Mina Gutierrez Admitting Physician: AdmMina [...] Comment: [05/30/2018] vaccine information sheet provided in [place] citizen for patient. 2Result Comment: [05/02/2013] [place] [id number] 3Admin Note: VIS 03/14/2011 4Admin Note: vis 11/26 5Admin Note: VIS 06/27 6Result Comment: Pt states he received flu shot last June Medications albuterol 0.083% inhalation solution 3 mL = 2.5 mg, Inhalation, Every 6 hours, PRN for wheezing, # 25 each, 6 Refills, Maintenance, 12/11/19 8:25:00 EDT, [facility] 170.18, cm, 09/19/19 14:54:00 EST, Height, 72.6, kg, 11/27/18 15:36:00 EDT, Dry Weight Start Date: 12/11/19 Status: Ordered albuterol CFC free 90 mcg/inh inhalation aerosol See Instructions, PRN, Inhalation 4 times a day for SOB and wheezing. Czech instructions, # 1 each, Refills 5, Tot. Refills 5, Maintenance, 12/27/20 9:36:00 EDT, Instructions Replace Required Details Inhaler, Route to Pharmacy Electronically, [id number]... Start Date: 12/27/20 Status: Ordered finasteride 5 [...] to Pharmacy Electronically, [facility], 170.18, cm, 09/03/20 16:58:00 EST, Height Start Date: 11/30/20 Status: Ordered hydrOXYzine hydrochloride 25 mg oral tablet 1 tablet = 25 mg, By Mouth, 3 times a day, PRN as needed for anxiety, PRN FOR ANXIETY. label in [place] citizen please, # 60 tablet, 1 Refills, Maintenance, 12/25/19 15:58:00 EDT, Tablet, [facility] 170.18, cm, 09/19/19 14:54:00 EST, Height,... Start Date: 12/25/19 Status: Ordered multivitamin Therapeutic Multiple Vitamins oral tablet 1 tablet, By Mouth, Daily, # 60 tablet, 5 Refills, Maintenance, 12/28/20 8:34:00 EDT, Tablet, [facility] 1 tablet By Mouth Daily, [...] tablet, 2 Refills, Maintenance, 12/28/20 8:34:00 EDT, [facility], 170.18, cm, 09/03/20 16:58:00 EST, Height Start Date: 12/28/20 Status: Ordered QUEtiapine 200 mg oral tablet 200 mg, 1, tablet, By Mouth, Daily, label in [place] citizen please, # 60 tablet, Refills 2, Tot. Refills 2, Maintenance, 05/18/20 8:10:00 EDT, Route to Pharmacy Electronically, [facility], 170.18, cm, 09/19/19 14:54:00 EST, Height, [...] to Pharmacy Electronically, [facility], 170.18, cm, 09/19/19 14:54:00 EST, [...]
--- OUTSIDE RECORDS SUMMARY | 2023-06-19 13:03 | XMS_ITS | Continuity of Care Document ---
Author Name Unknown Organization [facility] Address [address] [place] [address]- Care Team Providers Care Video Poker Floorman Name Role Phone Ruddy Perez DO Primary Care Physician Encounter [facility] Date(s): 09/22/22 - 11/05/22 [facility] [address] [place] [id number]- Attending Physician: Angelique Owens MD Admitting Physician: Angelique Owens MD Allergies, Adverse Reactions, Alerts No Known [...] Comment: [05/30/2018] vaccine information sheet provided in bhutanese for patient. 2Result Comment: [05/02/2013] [place] [id number] 3Admin Note: VIS 03/14/2011 4Admin Note: vis 11/26 5Admin Note: VIS 06/27 6Result Comment: Pt states he received flu shot last June Medications Albuterol (Eqv-ProAir HFA) 90 mcg/inh inhalation aerosol See Instructions, USAR 2 INHALACIONES POR LA B[place]A CADA 6 HORAS CUANDO SEA NECESARIO PARA CHARLENE,# 8.5 Gm, 1 Refills, Maintenance, 07/21/22 12:22:00 EST, [facility], USAR 2 INHALACIONES POR LA BOCA [...] tablet, 5 Refills, Maintenance, 07/21/22 12:22:00 EST[facility], SEKOU 1 TABLETA POR LA BOCA [...] Replace Required Details, [facility],... Start Date: 08/25/22 Status: Ordered hydrOXYzine hydrochloride 25 mg oral tablet 1 tablet = 25 mg, By Mouth, 3 times a day, PRN as needed for anxiety, PRN FOR ANXIETY. label in bhutanese please, # 60 tablet, 1 Refills, Maintenance, 12/25/19 15:58:00 EDT, [facility], cm, 09/19/19 14:54:00 EST, Height,... [...] capsule, 1 Refills, Maintenance, 10/18/22 9:14:00 EST[facility], [facility], 09/20/22 11:01:00 EST, Height, [...] 1, tablet, By Mouth, Daily, label in bhutanese please, # 60 tablet, Refills 2, Tot. Refills 2, Maintenance, 05/18/20 8:10:00 EDT, Route to Pharmacy Electronically, [facility], 170.18, cm, 09/19/19 14:54:00 EST, Height, [...] 07/01/21 8:58:00 EST, Route to Pharmacy Electronically, [facility], Please print label and instructions in Norwegian., 170.18, cm, 06/20... 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
--- OUTSIDE RECORDS SUMMARY | 2023-06-19 13:03 | XMS_ITS | Continuity of Care Document ---
Author Name Unknown Organization [facility] Address [address] [place] [address]- Care Team Providers Care Quarrying Specialist Name Role Phone Ruddy Perez DO Primary Care Physician Encounter [facility] Date(s): 12/24/20 - 01/23/21 [facility] [address], [place] [address] Allergies, Adverse Reactions, Alerts No Known [...] [05/30/2018] vaccine information sheet provided in [place] for patient. 2Result Comment: [05/02/2013] [place] [id number] 3Admin Note: VIS 03/14/2011 4Admin Note: vis 11/26 5Admin Note: VIS 06/27 6Result Comment: Pt states he received flu shot last June Medications albuterol 0.083% inhalation solution 3 mL = 2.5 mg, Inhalation, Every 6 hours, PRN for wheezing, # 25 each, 6 Refills, Maintenance, 12/11/19 8:25:00 EDT, Solution, [facility] 170.18, cm, 09/19/19 14:54:00 EST, Height, 72.6, kg, 11/27/18 15:36:00 EDT, Dry Weight Start Date: 12/11/19 Status: Ordered albuterol CFC free 90 mcg/inh inhalation aerosol See Instructions, PRN, Inhalation 4 times a day for SOB and wheezing. Turkmen instructions, # 1 each, Refills 5, Tot. Refills 5, Maintenance, 12/27/20 9:36:00 EDT, Instructions Replace Required Details Inhaler, Route to Pharmacy Electronically, [id number]... Start Date: 12/27/20 Status: Ordered finasteride 5 [...] Replace Required Details, Route to Pharmacy Electronically, [facility], 170.18, cm, 09/03/20 16:58:00 EST, Height Start Date: 11/30/20 Status: Ordered hydrOXYzine hydrochloride 25 mg oral tablet 1 tablet = 25 mg, By Mouth, 3 times a day, PRN as needed for anxiety, PRN FOR ANXIETY. label in [place] please, # 60 tablet, 1 Refills, Maintenance, 12/25/19 15:58:00 EDT, Tablet, [facility] 170.18, cm, 09/19/19 14:54:00 EST, Height,... Start Date: 12/25/19 Status: Ordered multivitamin Therapeutic Multiple Vitamins oral tablet 1 tablet, By Mouth, Daily, # 60 tablet, 5 Refills, Maintenance, 12/28/20 8:34:00 EDT, Tablet, [facility]., 1 tablet By Mouth Daily, 170.18, cm, [...] tablet, 2 Refills, Maintenance, 12/28/20 8:34:00 EDT, [facility], 170.18, cm, 09/03/20 16:58:00 EST, Height Start Date: 12/28/20 Status: Ordered QUEtiapine 200 mg oral tablet 200 mg, 1, tablet, By Mouth, Daily, label in [place] please, # 60 tablet, Refills 2, Tot. Refills 2, Maintenance, 05/18/20 8:10:00 EDT, Route to Pharmacy Electronically, [facility], 170.18, cm, 09/19/19 14:54:00 EST, Height, [...] Replace Required Details, Route to Pharmacy Electronically, [facility], 170.18, cm, 09/19/19 14:54:00 EST, [...]
--- OUTSIDE RECORDS SUMMARY | 2023-06-19 13:03 | XMS_ITS | Continuity of Care Document ---
Author Name Unknown Organization [facility] ter Address [address] [place] [address]- Care Team Providers Care Acetylene Torch Burner Name Role Phone Ruddy Perez DO Primary Care Physician Encounter [facility] Date(s[place] 09/20/22 - 09/20/[address] [address]- Discharge Disposition: A-D/C Home Attending Physician: Bonifacio Cutler MD Admitting Physician: Bonifacio Cutler MD Referring Physician: Not on Staff, Referring MD Allergies, Adverse Reactions, Alerts No Known [...] Comment: [05/30/2018] vaccine information sheet provided in martiniquais for patient. 2Result Comment: [05/02/2013] Flulavale [phone] 3Admin Note: VIS 03/14/2011 4Admin Note: vis 11/26 5Admin Note: VIS 06/27 6Result Comment: Pt states he received flu shot last June Medications Albuterol (Eqv-ProAir HFA) 90 mcg/inh inhalation aerosol See Instructions, USAR 2 INHALACIONES POR LA BOCA CADA 6 HORAS CUANDO SEA NECESARIO PARA CHARLENE,# 8.5 Gm, 1 Refills, Maintenance, 07/21/22 12:22:00 EST, [facility], 25, USAR 2 INHALACIONES POR [...] tablet, 5 Refills, Maintenance, 07/21/22 12:22:00 EST, [facility], 30, SEKOU 1 TABLETA POR LA [...] Instructions, SEKOU 1 CAPSULA POR LA BOCA LOREN VECES AL SHANKAR, # 90 capsule, Refills 5, Tot. Refills 5, Maintenance, 08/25/22 17:46:00 EST, Instructions Replace Required Details, [facility],... Start Date: 08/25/22 Status: Ordered hydrOXYzine hydrochloride 25 mg oral tablet 1 tablet = 25 mg, By Mouth, 3 times a day, PRN as needed for anxiety, PRN FOR ANXIETY. label in martiniquais please, # 60 tablet, 1 Refills, Maintenance, 12/25/19 15:58:00 EDT, Tablet, [facility], 170.18, cm, 09/19/19 14:54:00 EST, Height,... Start [...] capsule, 2 Refills, Maintenance, 06/02/22 13:19:00 EDT, [facility], 170.18, cm, 07/01/21 8:02:00 EST, Height Start Date: 06/02/22 Status: Ordered On methadone On methadone, See Instructions, # 1 each, Refills 0, Tot. Refills 0, Maintenance, he is on 60 mg Methadone at home, 11/04/17 8:01:25 EDT, Compound Start Date: 11/04/17 Status: Ordered QUEtiapine 200 mg oral tablet 200 mg, 1, tablet, By Mouth, Daily, label in martiniquais please, # 60 tablet, Refills 2, Tot. Refills 2, Maintenance, 05/18/20 8:10:00 EDT, Route to Pharmacy Electronically, [facility], 170.18, cm, 09/19/19 14:54:00 EST, Height, 72.6, [...] 07/01/21 8:58:00 EST, [facility], Please print label and instructions in Lao., 170.18, cm, 06/20... 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 Pt c o pain and continued swelling to elbow. +CMS. Pt denies LOC when he fell, no blood thinners, denies head pain; Reason: Trauma; Clinical Question(s): Subarachnoid Hemorrhage; TECHNIQUE: Noncontrast head CT using axial technique and reconstructed in axial and coronal planes.Iterative reconstruction techniques are used to optimize dose and image quality. CTDIvol Head: 34.72 mGy, DLP Head: 556 mGy*cm. COMPARISON: CT head from 04/18/2018. FINDINGS: Production Packager view findings, lines and tubes: None. BRAIN AND EXTRA-AXIAL SPACES: No parenchymal hemorrhage, midline shift, or mass effect. Melo-white matter differentiation is wellpreserved. No acute infarct. Negative insular ribbon and hyperdense vessel signs. Mild prominence of the ventricles and sulci consistent with parenchymal volume loss. Mild low-density white matter changes. No subarachnoid hemorrhage. No subdural or epidural collection. CALVARIUM, SKULL BASE, AND SOFT TISSUES: No fractures or suspicious bony lesions. One of the posterior right ethmoid air cells is nearly completely opacified with aerosolized fluid,less consolidated compared to the previous. Right frontal sinus is aplastic. Otherwise included portions of paranasal sinuses are well-developed and clear. Visualized orbits and globes are intact. The extracranial soft tissues are unremarkable. IMPRESSION: No acute intracranial pathology. I have personally reviewed the images and I agree with this report. WSN: [id number] Ordering Physician: Allison Jose Dictated By: Ferny Blood MD Dictated Date/Time: 09/20/22 1:52 pm Reviewed By: Chris Alejandra MD Signed By: Chris Alejandra MD Signed Date/Time: 09/20/22 1:57 pm Transcribed By: LUIS Transcribed Date/Time: 09/20/22 1:39 pm * Exam Date Time Procedure Performing Provider Status 09/20/22 12:49 PM Elbow Min 3 Views Right Sita Sandoval ; Lopez (Verified) Notes: (Elbow Min 3 Views Right) Reason For Exam: Pain RESULT: Elbow Min 3 Views Right Elbow, 3 views INDICATION: Pain and swelling after fall 3 days ago COMPARISON: None. FINDINGS: Severe swelling overlying the olecranon process. No joint effusion, bone lesions or fractures. No arthritic changes. IMPRESSION: Large olecranon bursal fluid collection. No underlying fracture. WSN: [id number] Ordering Physician: Allison Jose Dictated By: Frank Tesfaye MD Dictated Date/Time: 09/20/22 12:53 p Reviewed By: Frank Tesfaye MD Signed By: Frank Tesfaye MD Signed Date/Time: 09/20/22 12:53 pm Transcribed By: LUIS Transcribed Date/Time: 09/20/22 12:52 pm * Exam Date Time Procedure Performing Provider Status 09/20/22 12:49 PM Humerus Min 2 Views Right Vikki Sandoval dy; Auth (Verified) Notes: (Humerus Min 2 Views Right) Reason For Exam: Pain RESULT: Humerus Min 2 Views Right Humerus Min 2 Views Right, 2 views Hx of Present Illness: t pt coming from home c o fall three days ago, pt his his R elbow. pt c o pain and continued swelling to elbow. +CMS. pt denies LOC when he fell, no blood thinners, denies headpain; Reason: Pain; Clinical Question(s): Fracture COMPARISON: None. FINDINGS: No evidence of humerus fracture IMPRESSION: See above WSN: [id number] Ordering Physician: Allison Jose Dictated By: Ruddy Higgins MD Dictated Date/Time: 09/20/22 12:50 p Reviewed By: Ruddy Higgins MD Signed By: Ruddy Higgins MD Signed Date/Time: 09/20/22 12:50 pm Transcribed By: LUIS Transcribed Date/Time: 09/20/22 12:49 pm Vital Signs Most recent to oldest [Reference Range]: 1 2 3 Height 170 cm (09/20/22 11:01 AM) Weight 70.3 kg (09/20/22 11:01 AM) Oxygen Saturation [94-100 %] 94 % (09/20/22 2:39 PM) 94 % (09/20/22 12:05 PM) 93 % *L* (09/20/22 11:01 AM) Pulse Rate [55-90 bpm] 67 bpm (09/20/22 2:39 PM) 73 bpm (09/20/22 12:05 PM) 88 bpm (09/20/22 11:01 AM) Body Mass Index [18.5-24.99 kg/m2] 24.33 kg/m2 (09/20/22 11:01 AM) Blood Pressure [90-138/55-84 mm Hg] 125/73mm Hg (09/20/22 2:39 PM) 116/66mm Hg (09/20/22 12:05 PM) 142/81mm Hg *H* (09/20/22 11:01 AM) Respiratory Rate [16-30 br/min] 18 br/min (09/20/22 2:39 PM) 16 br/min (09/20/22 12:05 PM) 16 br/min (09/20/22 11:01 AM) Temperature [96.8-100.4 DegF] 98.5 DegF (09/20/22 12:05 PM) 98.4 DegF (09/20/22 11:01 AM) Mode of Delivery (Oxygen) Room air (09/20/22 2:39 PM) Room air (09/20/22 12:05 PM) Room air (09/20/22 11:01 AM) Blood pressure sites Arm, left (09/20/22 2:39 PM) Arm, left (09/20/22 12:05 PM) Arm, left (09/20/22 11:01 AM) Temperature Route Oral (09/20/22 12:05 PM) Oral (09/20/22 11:01 AM) Dry Weight 70.3 kg (09/20/22 11:01 AM) Weight Obtained Via Standing scale (09/20/22 11:01 AM) Dry Weight Obtained Via Standing scale (09/20/22 11:01 AM) Social History Social History Type Response Smoking Status Current every day sandra ortiz; Previous treatment: Nicotine replacement; Interested in cessation: Yes; Tobacco use times per day: 1 ppd; Number of years: 13; Total pack years: 13; entered on: 04/10/18 Sex Note * Allison Crocker: PERFORM Event Display: Patient Education Leaflets Authored Date: [id number] Bursitis ?? [id number] Bursitis Tiene bursitis. Es ange inflamaci??n de la bolsa sinovial. Son sacos gordy??os y llenos de l??quido que rodean las articulaciones m??s grandes del cuerpo. La bolsa ayuda a los m??sculos y los tendonesa deslizarse suavemente sobre las articulaciones. La bursitis suele ocurrir en el hombro. Katerin tambi??n puede afectar codos, caderas, pelvis, rodillas, dedos de los pies y talones. La causa de la bursitis puede ser ange lesi??n, el uso excesivo de laarticulaci??n o ange infecci??n de la bolsa. Los s??ntomas incluyen dolor y sensibilidad en la articulaci??n. Los s??ntomas empeoran con el movimiento. La bursitis se trata con medicamentos antinflamatorios y reposo de la articulaci??n. Los casos m??sgraves requieren inyecciones de medicamento directamente en la bolsa. En pattie de infecci??n, puedennecesitarse cirug??a y antibi??ticos. Cuidados en el hogar ??? Descanse la articulaci??n que le causa dolor y prot??yee del movimiento. Walden permitir?? que la inflamaci??n se cure m??s r??pido. ??? Coloque ange compresa de hielo sobre lazona lesionada andrew no m??s de 15??o 20??minutos. Avelina esto cada??3 o 6??horas andrew las primeras??24 a 48??horas. Siga usando compresas de hielo de loren??a cuatro??veces al d??a hasta que el dolor y la hinchaz??n se alivien.? Para hacer ange compresa de hielo, coloque cubos de hielo en ange bolsa pl??stica cerrada. Envuelva la bolsa en ange toalla o un pa??o limpio y kecia. Nunca aplique hielo ni compresas de hielo directamente sobre la piel. Tenga cuidado de no mojar el vendaje ni la f?? angela a medida que el hielo se derrite. ??? Puede sekou analg??sicos de venta marques para aliviar el dolor y la inflamaci??n, a menos que le hayan recetado otros.??Los medicamentos analg??sicos antinflamatorios pueden ser m??s efectivos. Hable con el proveedor antes de sekou estos medicamentos si tiene ange enfermedad cr??moises del h??gado o de los ri??ones, si alguna vez tuvo ??lceras estomacales o hemorragias gastrointestinales o si marino anticoagulantes. ??? A medida que los s??ntomas mejoren, comience a pipe organ mechanic apprentice la articulaci??n de a poco. No la use en exceso. Puede hacer que los s??ntomas empeoren otra vez. ?? Cu??ndo debe buscar atenci??n m??dica Llame a chanel proveedor de atenci??n m??dica de inmediato ante cualquiera de las siguientes situaciones: ??? Enrojecimiento o calor en la daren dolorida ??? Aumento del dolor o la hinchaz??n en la articulaci??n ??? Fiebre de 100.4?F (38?C) o superior que dure entre 24??y 48??horas, o seg??n lo indicado ??? Escalofr??os ?? Last Reviewed Date: 2021 ?? [id number] [employer]. Todos los derechos reservados. Esta informaci??n no pretende sustituir la atenci??n m??dica profesional. S??lo chanel m??dico puede diagnosticar y tratar un problema de daria. ?? * Rebeca MACK, Allison Melgar: PERFORM Event Display: Patient Education Leaflets Authored Date: [id number] Fall Prevention ?? [id number] La prevenci??n de ca??angeles Las ca??angeles suelen ocurrir por resbalarse, tropezarse o perder el equilibrio. Millones de personas sufren ca??angeles cada a??o y se lesionan.??En los adultos mayores en los [place], las ca??angeles son la causa m??s com??n de consultas por lesiones traum??nazario del cerebro. Cada 20??minutos, un adulto mayor muere por ange ca??da. Para disminuir chanel riesgo de ca??da, aqu?? tiene algunas recomendaciones: ??? Piense sobre la ca??da. ??Hubo algo que caus?? la ca??da que se pueda reparar, quitar o reemplazar? Despeje los pasillos de objetos que puedan hacer que tropiece, manisha cables el??ctricos,para mantener chanel hogar seguro. ??? Use almohadillas antideslizantes debajo de las alfombras. No use alfombras ni tapetes gordy??os. ??? Utilice alfombrillas antideslizantes en las tinas y duchas. ???Coloque pasamanos en el inodoro y dentro y fuera de la ducha. ??? Instale pasamanos y luces en todas las escaleras. Debe colocar pasamanos a ambos lados de la bebe. ??? Use luces nocturnas. ??? No camine por zonas que no est??n suficientemente iluminadas. ??? No se pare sobre keith ni escaleras inestables. ??? Tenga cuidado cuando se estire para alcanzar algo muy alto o al mirar hacia arriba.??Esta posici??n puede ocasionar p??rdida del equilibrio. ??? Aseg??rese de que el calzado le quedebien, que tenga suelas antideslizantes y que est?? en buenas condiciones.? Use calzado dentro y fuera de la casa. No tori descalzo ni use pantuflas. ??? Tenga cuidado al subir y bajar por las esc aleras o aceras y cuando camine por aceras desiguales. ??? Si le darren mantener el equilibrio, eval??e usar un isabell??n o andador. Hable con chanel proveedor de atenci??n m??dica sobre hacer ange prueba de equilibrio. ??? Si chanel ca??da se relaciona con la ingesta de bebidas alcoh??licas, d??jelas o limite la ingesta.??P??ani ayuda a chanel proveedor si bib que abusa del alcohol y no puede controlarlo. ??? Si chanel ca??da se relaciona con medicamentos para dormir, hable con chanel proveedor acerca de esto.??Esposible que necesite reducir la dosis al acostarse si se levanta por la noche para ir al ba??o.? Para reducir la cantidad de veces que va al ba??o, avelina lo siguiente: o No tome l??quidos varias horas antes de acostarse o Vac??e la vejiga antes de ir a la cama o Los hombres pueden tener un orinal junto a la cama ??? Mant??ngase su activo manisha pueda. El ejercicio mejorar?? chanel equilibrio, flexibilidad, fortaleza y resistencia. Todos estos factores intervienen en la prevenci??n de las ca??angeles. Preg??ntele a chanel proveedor de atenci??n m??dica qu?? tipos actividades son adecuadas para usted. Intente hacer algo de ejercicio todos los d??as. ??? H??gase un examen de la vista por lo menos unavez al a??o o con m??s frecuencia si tiene cambios en la visi??n ??? Si tiene mascotas, f??yohan d??nde est??n antes de ponerse de pie o caminar para no tropezar con ellas. ??? Controle todos valeria medicamentos con un farmac??utico u otro proveedor. Es para maame si alguno de ellos podr??a aumentar chanel riego de ca??angeles. H??gase hayden control, al menos, ange vez al a??o. ??? Si chanel proveedor le recomienda un medicamento nuevo, preg??ntele si los efectos secundarios incluyen la p??rdida del equilibrio. ??? No se mueva r??pido de ange posici??n a otra. Por ejemplo, no se pare r??pido si estuvo sentado. Puede causarle mareos y ange ca??da. ??? Si??ntese para ponerse pantalones, medias o zapatos. Walden reducir?? la posibilidad de que pierda el equilibrio y caiga. ??? Avise chanel proveedor si se chelsea?? alguna vez desde la ??ltima visita. ??? Contacte a chanel proveedor de inmediato si tiene problemas de equilibrio o se con m??s frecuencia. Last Reviewed Date: 2021 ?? [id number] [employer]. Todos los derechos reservados. Esta informaci??n no pretende sustituir la atenci??n m??dica profesional. S??lo chanel m??dico puede diagnosticar y tratar un problema de daria. ?? XR Humerus - right Views * BHSPowerscribe , CIS S: Ruddy Galeano MD: VERIFY Event Display: Result: Authored Date: Humerus Min 2 Views Right, 2 views Hx of Present Illness: t pt coming from home c o fall three days ago, pt his his R elbow. pt c o pain and continued swelling to elbow. +CMS. pt denies LOC when he fell, no blood thinners, denies headpain; Reason: Pain; Clinical Question(s): Fracture COMPARISON: None. FINDINGS: No evidence of humerus fracture IMPRESSION: See above WSN: [id number] Ordering Physician: Allison Jose Dictated By: Ruddy Higgins MD Dictated Date/Time: 09/20/22 12:50 p Reviewed By: Ruddy Higgins MD Signed By: Ruddy Higgins MD Signed Date/Time: 09/20/22 12:50 pm Transcribed By: LUIS Transcribed Date/Time: 09/20/22 12:49 pm XR Elbow - right GE 3 Views * KECIA Gonzalez S: Frank Hamilton MD: VERIFY Event Display: Result: Authored Date: [id number] Elbow, 3 views INDICATION: Pain and swelling after fall 3 days ago COMPARISON: None. FINDINGS: Severe swelling overlying the olecranon process. No joint effusion, bone lesions or fractures. No arthritic changes. IMPRESSION: Large olecranon bursal fluid collection. No underlying fracture. WSN: [id number] Ordering Physician: Allison Jose Dictated By: Frank Tesfaye MD Dictated Date/Time: 09/20/22 12:53 p Reviewed By: Frank Tesfaye MD Signed By: Frank Tesfaye MD Signed Date/Time: 09/20/22 12:53 pm Transcribed By: LUIS Transcribed Date/Time: 09/20/22 12:[address] Head WO contrast * TANIKASPowerrichie , CIS S: Chris Rice MD: VERIFY Ferny Blood MD: SIGN Event Display: Result: Authored Date: CT Head/Brain W/O Contrast INDICATION: pt coming from home c o fall three days ago, pt his his R elbow. Pt c o pain and continued swelling to elbow. +CMS. Pt denies LOC when he fell, no blood thinners, denies head pain; Reason: Trauma; Clinical Question(s): Subarachnoid Hemorrhage; TECHNIQUE: Noncontrast head CT using axial technique and reconstructed in axial and coronal planes.Iterative reconstruction techniques are used to optimize dose and image quality. CTDIvol Head: 34.72 mGy, DLP Head: 556 mGy*cm. COMPARISON: CT head from 04/18/2018. FINDINGS: Production Packager view findings, lines and tubes: None. BRAIN AND EXTRA-AXIAL SPACES: No parenchymal hemorrhage, midline shift, or mass effect. Melo-white matter differentiation is wellpreserved. No acute infarct. Negative insular ribbon and hyperdense vessel signs. Mild prominence of the ventricles and sulci consistent with parenchymal volume loss. Mild low-density white matter changes. No subarachnoid hemorrhage. No subdural or epidural collection. CALVARIUM, SKULL BASE, AND SOFT TISSUES: No fractures or suspicious bony lesions. One of the posterior right ethmoid air cells is nearly completely opacified with aerosolized fluid,less consolidated compared to the previous. Right frontal sinus is aplastic. Otherwise included portions of paranasal sinuses are well-developed and clear. Visualized orbits and globes are intact. The extracranial soft tissues are unremarkable. IMPRESSION: No acute intracranial pathology. I have personally reviewed the images and I agree with this report. WSN: [id number] Ordering Physician: Allison Jose Dictated By: Ferny Blood MD Dictated Date/Time: 09/20/22 1:52 pm Reviewed By: Chris Alejandra MD Signed By: Chris Alejandra MD Signed Date/Time: 09/20/22 1:57 pm Transcribed By: LUIS Transcribed Date/Time: 09/20/22 1:39 pm Patient Care team information Care Team Personnel Name: Pearl Torre [facility] Outreach Member Role: Lifetime Consulting Physician Name: Ruddy Perez DO Position[facility] Resident Member Role: PCP Address: Address: [address] [place] [id number] Name: *Mindi WILSON Attending Position: [facility] ED Medicine Name: Emma Jj RN Position: [facility] ED RN W/OE and Tasks Member Role: Patient Care Provider Name: Allison Crocker Position[facility] Associate Professional Member Role: ED Physician Yarder Puncher Address: Address: [address] [place] [address]- Name: Pedro Ramirez LPN Position: [facility] ED RN W/OE and Tasks Member Role: Patient Care Provider Care Team Related Persons Name: FELIBERTO MARTINS Address: home [address] [address] Name: PT STATES, NONE
--- OUTSIDE RECORDS SUMMARY | 2023-06-19 13:03 | XMS_ITS | Continuity of Care Document ---
Author Name Unknown Organization [facility] Address [address] [place] [address]- Care Team Providers Care Activities Attendant Name Role Phone Ruddy Perez DO Primary Care Physician [phone] Encounter [facility] Date(s): 04/27/20 - 05/27/20 [facility] [address] [place] [address]- [facility] Allergies, Adverse Reactions, Alerts No Known Medication [...] Comment: [05/30/2018] vaccine information sheet provided in saudi arabian for patient. 2Result Comment: [05/02/2013] Flulavale [id number] 3Admin Note: VIS 03/14/2011 4Admin Note: vis 11/26 5Admin Note: VIS 06/27 6Result Comment: Pt states he received flu shot last June Medications albuterol 0.083% inhalation solution 3 mL = 2.5 mg, Inhalation, Every 6 hours, PRN for wheezing, # 25 each, 6 Refills, Maintenance, 12/11/19 8:25:00 EDT, Solution, [facility] 170.18, cm, 09/19/19 14:54:00 EST, Height, 72.6, kg, 11/27/18 15:36:00 EDT, Dry Weight Start Date: 12/11/19 Status: Ordered albuterol CFC free 90 mcg/inh inhalation aerosol See Instructions, PRN, Inhalation 4 times a day for SOB and wheezing. Sudanese instructions, # 1 each, Refills 5, Tot. Refills 5, Maintenance, 12/05/19 15:38:00 EDT, Instructions Replace Required Details Inhaler, Route to Pharmacy Electronically, [id number]... Start Date: 12/05/19 Status: Ordered cloNIDine 0.1 mg oral tablet 0.1 mg, 1, tablet, By Mouth, 2 times a day, # 60 tablet, Refills 0, Tot. Refills 0, Maintenance, 05/17/20 8:49:00 EDT, Route to Pharmacy Electronically, [facility], 170.18, cm, 09/19/19 14:54:00 EST, Height, 72.6, kg, 11/27/18 15:36:00... Start Date: 05/17/20 Status: Ordered gabapentin 300 mg oral capsule 300 mg, 1, capsule, By Mouth, 3 times a day, label in saudi arabian please, # 90 capsule, Refills 5, Tot.Refills 5, Maintenance, 05/17/20 8:49:00 EDT, Route to Pharmacy Electronically, [facility], 170.18, cm, 09/19/19 14:54:00 EST, Height,... Start Date: 05/17/20 Status: Ordered hydrOXYzine hydrochloride 25 mg oral tablet 1 tablet = 25 mg, By Mouth, 3 times a day, PRN as needed for anxiety, PRN FOR ANXIETY. label in saudi arabian please, # 60 tablet, 1 Refills, Maintenance, 12/25/19 15:58:00 EDT, Tablet, [facility], 170.18, cm, 09/19/19 14:54:00 EST, Height,... Start Date: 12/25/19 Status: Ordered multivitamin Therapeutic Multiple Vitamins oral tablet 1 tablet, By Mouth, Daily, # 60 tablet, 1 Refills, Maintenance, 12/05/19 15:38:00 EDT, Tablet, [facility], 1 tablet By Mouth Daily, 170.18, cm, [...] tablet, 1 Refills, Maintenance, 12/05/19 15:38:00 EDT, [facility], 170.18, cm, 09/19/19 14:54:00 EST, Height, 72... Start Date: 12/05/19 Status: Ordered QUEtiapine 200 mg oral tablet 200 mg, 1, tablet, By Mouth, Daily, label in saudi arabian please, # 60 tablet, Refills 2, Tot. Refills 2, Maintenance, 05/18/20 8:10:00 EDT, Route to Pharmacy Electronically, [facility], 170.18, cm, 09/19/19 14:54:00 EST, Height, [...] Maintenance, 208:49:00 EDT, Route to Pharmacy Electronically, [facility] 170.18, cm, 09/19/19 14:54:00 EST, [...]
--- OUTSIDE RECORDS SUMMARY | 2023-06-19 13:03 | XMS_ITS | Continuity of Care Document ---
Author Name Unknown Organization [facility] Address [address] [place] [address]- Care Team Providers Care Tree Wrapper Name Role Phone Missael Murphy DO Primary Care Physician [place] [facility] [place] 03[place]23 [facility] [address] [place] [id number] Allergies, Adverse Reactions, Alerts No [...] Comment: [05/30/2018] vaccine information sheet provided in austrian for patient. 2Result Comment: [05/02/2013] Flulavale [id number] 3Admin Note: VIS 03/14/2011 4Admin Note: vis 11/26 5Admin Note: VIS 06/27 6Result Comment: Pt states he received flu shot last June Medications Albuterol (Eqv-ProAir HFA) 90 mcg/inh inhalation aerosol See Instructions, USAR 2 INHALACIONES POR LA BOCA CADA 6 HORAS CUANDO SEA NECESARIO PARA CHARLENE,# 8.5 Gm, 1 Refills, Maintenance, 07/21/22 12:22:00 EST, [facility], 25, USAR 2 INHALACIONES POR [...] tablet, 5 Refills, Maintenance, 01/11/23 11:54:00 EDT, [facility], 30, SKEOU 1 TABLETA POR LA BOCA CADA SHANKAR, [...] Replace Required Details, Route to Pharmacy Electronically, [facility], 170, cm, 02/02/23 14:43:00 EDT... Start Date: 02/14/23 Status: Ordered gabapentin 300 mg oral capsule See Instructions, SEKOU 1 CAPSULA POR LA BOCA MASSIEL VECES AL SHANKAR, # 90 capsule, Refills 5, Tot. Refills 5, Maintenance, 08/25/22 17:46:00 EST, Instructions Replace Required Details, Route to Pharmacy Electronically, [facility], 170.18,... Start Date: 08/25/22 Status: Ordered hydrOXYzine hydrochloride 25 mg oral tablet 1 tablet = 25 mg, By Mouth, 3 times a day, PRN as needed for anxiety, PRN FOR ANXIETY. label in austrian please, # 60 tablet, 1 Refills, Maintenance, 12/25/19 15:58:00 EDT, Tablet, [facility], 170.18, cm, 09/19/19 14:54:00 EST, Height,... [...] capsule, 1 Refills, Maintenance, 10/18/22 9:14:00 EST, [facility], 170, cm, 09/20/22 11:01:00 EST, Height, [...] 1, tablet, By Mouth, Daily, label in austrian please, # 60 tablet, Refills 2, Tot. Refills 2, Maintenance, 05/18/20 8:10:00 EDT, Route to Pharmacy Electronically, [facility] 170.18, cm, 09/19/19 14:54:00 EST, Height, [...] 07/01/21 8:58:00 EST, Route to Pharmacy Electronically, [facility], Please print label and instructions in [...] prostate Confirmed 01/2016 Active Nocturia Confirmed Active *[id number]-Paul aaron Guzman Confirmed Active Tobacco use Confirmed [...] Team Personnel Name: Missael Murphy DO Position: [facility] Resident Member Role: PCP Address: Address: [address] [place] [address] [place] [address]- Name: Pearl Torre Position: [facility] Outreach Member Role: Lifetime Consulting Physician Care Team Related Persons Name: FELIBERTO MARTINS Address: home [address] [address] Name: PT STATES, NONE
--- OUTSIDE RECORDS SUMMARY | 2023-06-19 13:03 | XMS_ITS | Continuity of Care Document ---
Author Name Unknown Organization [facility] Address [address] [place] [address]- Care Team Providers Care Ground Water Pump Installer Name Role Phone Ruddy Perez DO Primary Care Physician [phone] [place] [facility] [place] 12/16/21 - 02/03/22 [facility] [address] [place] [id number]- Attending Physician: Not on Staff, Attending MD [...] french for patient. 2Result Comment: [05/02/2013] Flulavale [id number] 3Admin Note: VIS 03/14/2011 4Admin Note: vis 11/26 5Admin Note: VIS 06/27 6Result Comment: Pt states he received flu shot last June Medications albuterol 0.083% inhalation solution 3 mL = 2.5 mg, Inhalation, Every 6 hours, PRN for wheezing, # 25 each, 6 Refills, Maintenance, 12/11/19 8:25:00 EDT, Solution, [facility] 170.18, cm, 09/19/19 14:54:00 EST, Height, 72.6, kg, 11/27/18 15:36:00 EDT, Dry Weight Start Date: 12/11/19 Status: Ordered albuterol CFC free 90 mcg/inh inhalation aerosol See Instructions, PRN, Inhalation 4 times a day for SOB and wheezing. Sierra Leonean instructions, # 1 each, Refills 5, Tot. Refills 5, Maintenance, 12/27/20 9:36:00 EDT, Instructions Replace Required Details Inhaler, Route to Pharmacy Electronically, [id number]... Start Date: 12/27/20 Status: Ordered clonazePAM 1 [...] Replace Required Details, Route to Pharmacy Electronically, [facility] 170.18, cm, 07/01/21... Start Date: 11/07/21 Status: Ordered hydrOXYzine hydrochloride 25 mg oral tablet 1 tablet = 25 mg, By Mouth, 3 times a day, PRN as needed for anxiety, PRN FOR ANXIETY. label in french please, # 60 tablet, 1 Refills, Maintenance, 12/25/19 15:58:00 EDT, Tablet, [facility] 170.18, cm, 09/19/19 14:54:00 EST, Height,... Start Date: 12/25/19 Status: Ordered multivitamin Therapeutic Multiple Vitamins oral tablet 1 tablet, By Mouth, Daily, # 30 tablet, 5 Refills, Maintenance, 01/02/22 20:35:00 EDT, Tablet, [facility] 1 tablet By Mouth Daily, 170.18, [...] tablet, 2 Refills, Maintenance, 01/31/22 12:13:00 EDT, [facility], 170.18, cm, 07/01/21 8:02:00 EST, Height Start Date: 01/31/22 Status: Ordered QUEtiapine 200 mg oral tablet 200 mg, 1, tablet, By Mouth, Daily, label in french please, # 60 tablet, Refills 2, Tot. Refills 2, Maintenance, 05/18/20 8:10:00 EDT, Route to Pharmacy Electronically, [facility], 170.18, cm, 09/19/19 14:54:00 EST, Height, [...] 8:58:00 EST, Route to Pharmacy Electronically, [facility], Please print label and instructions in Sierra Leonean., 170.18, cm, 06/20... Start Date: 07/01/21 Status: [...] Response Smoking Status Current every day sandra okkarri; Previous treatment: Nicotine replacement; Interested in cessation: Yes; Tobacco use times per day: 1 ppd; Number of years: 13; Total pack years: 13; entered on: 04/10/18 Sex
--- OUTSIDE RECORDS SUMMARY | 2023-06-19 13:03 | XMS_ITS | Continuity of Care Document ---
Author Name Unknown Organization [facility] Address [address] [place] [address]- Care Team Providers Care Livestock Commission Agent Name Role Phone Missael Murphy DO Primary Care Physician [place] [facility] [place]23 [place] 06/09/23 [facility] [address] [place] [id number] Allergies, Adverse Reactions, Alerts No Known Allergies [...] Comment: [05/30/2018] vaccine information sheet provided in jamaican for patient. 2Result Comment: [05/02/2013] Flulavale [id number] 3Admin Note: VIS 03/14/2011 4Admin Note: vis 11/26 5Admin Note: VIS 06/27 Medications Albuterol (Eqv-ProAir HFA) 90 mcg/inh inhalation aerosol See Instructions, USAR 2 INHALACIONES POR LA BOCA CADA 6 HORAS CUANDO SEA NECESARIO PARA CHARLENE,# 8.5 Gm, 1 Refills, Maintenance, 07/21/22 12:22:00 EST, [facility], 25, USAR 2 INHALACIONES POR LA BOCA [...] tablet, 5 Refills, Maintenance, 01/11/23 11:54:00 EDT, [facility], 30, SEKOU 1 TABLETA POR [...] Replace Required Details, Route to Pharmacy Electronically, [facility], 170, cm, 02/02/23 14:43:00 EDT... Start Date: 02/14/23 Status: Ordered gabapentin 300 mg oral capsule See Instructions, SEKOU 1 CAPSULA POR LA BOCA MASSIEL VECES AL SHANKAR, # 90 capsule, Refills 5, Tot. Refills 5, Maintenance, 08/25/22 17:46:00 EST, Instructions Replace Required Details, Route to Pharmacy Electronically, [facility], 170.18,... Start Date: 08/25/22 Status: Ordered hydrOXYzine hydrochloride 25 mg oral tablet 1 tablet = 25 mg, By Mouth, 3 times a day, PRN as needed for anxiety, PRN FOR ANXIETY. label in jamaican please, # 60 tablet, 1 Refills, Maintenance, 12/25/19 15:58:00 EDT, Tablet, [facility], 170.18, cm, 09/19/19 14:54:00 EST, Height,... [...] capsule, 2 Refills, Maintenance, 03/19/23 12:59:00 EDT, [facility], 170, cm, 02/02/23 14:43:00EDT, Height, 70.3, kg, 09/20/22 11:01:00 EST, Dry W... Start Date: 03/19/23 Status: Ordered On methadone On methadone, See Instructions, # 1 each, Refills 0, Tot. Refills 0, Maintenance, he is on 60 mg Methadone at home, 11/04/17 8:01:25 EDT, Compound Start Date: 11/04/17 Status: Ordered QUEtiapine 200 mg oral tablet 200 mg, 1, tablet, By Mouth, Daily, label in jamaican please, # 60 tablet, Refills 2, Tot. Refills 2, Maintenance, 05/18/20 8:10:00 EDT, Route to Pharmacy Electronically, [facility], 170.18, cm, 09/19/19 14:54:00 EST, Height, [...] 07/01/21 8:58:00 EST, Route to Pharmacy Electronically, [facility], Please print label and instructions in Thai., 170.18, cm, 06/20... Start Date: 07/01/21 Status: [...] prostate Confirmed 01/2016 Active Nocturia Confirmed Active *[id number] Benefits Clerk Landy Guerrier Confirmed Active Tobacco use Confirmed [...] Team Personnel Name: Missael Murphy DO Position: [facility] Resident Member Role: PCP Address: Address: [address] [place] [address] [place] [address]- [place] Name: Pearl Torre Position: [facility] Outreach Member Role: Lifetime Consulting Physician Care Team Related Persons Name: FELIBERTO MARTINS Address: home [address] [facility] [address] [place] [address] Name: PT STATES, NONE
--- OUTSIDE RECORDS SUMMARY | 2023-06-19 13:03 | XMS_ITS | Continuity of Care Document ---
Author Name Unknown Organization [facility] Address [address] [place] [address]- Care Team Providers Care Business Development Coordinator Name Role Phone Ruddy Perez DO Primary Care Physician [place] [facility] [place]04[place]22 - 06/03/22 [facility] [address] [place], [place] [address] Attending Physician: Mina Gutierrez Admitting Physician: AdmtrMina [...] welsh for patient. 2Result Comment: [05/02/2013] Flulavale [id number] 3Admin Note: VIS 03/14/2011 4Admin Note: vis 11/26 5Admin Note: VIS 06/27 6Result Comment: Pt states he received flu shot last June Medications albuterol 0.083% inhalation solution 3 mL = 2.5 mg, Inhalation, Every 6 hours, PRN for wheezing, # 25 each, 6 Refills, Maintenance, 12/11/19 8:25:00 EDT, Solution, [facility], 170.18, cm, 09/19/19 14:54:00 EST, Height, 72.6, kg, 11/27/18 15:36:00 EDT, Dry Weight Start Date: 12/11/19 Status: Ordered albuterol CFC free 90 mcg/inh inhalation aerosol 2, puffs, Inhalation, Every 6 hours, PRN, # 18 Gm, Refills 1, Tot. Refills 1, Maintenance, 02/24/2217:51:00 EDT, Inhaler, Route to Pharmacy Electronically, [id number], [facility], 170.18, cm, 07/01/21 8:02:00... Start Date: 02/24/22 [...] Replace Required Details, Route to Pharmacy Electronically, [facility], 170.18, cm, 07/01/21 8:02:00 E... Start Date: 06/02/22 Status: Ordered hydrOXYzine hydrochloride 25 mg oral tablet 1 tablet = 25 mg, By Mouth, 3 times a day, PRN as needed for anxiety, PRN FOR ANXIETY. label in welsh please, # 60 tablet, 1 Refills, Maintenance, 12/25/19 15:58:00 EDT, Tablet, [facility] 170.18, cm, 09/19/19 14:54:00 EST, Height,... Start Date: 12/25/19 Status: Ordered multivitamin Therapeutic Multiple Vitamins oral tablet 1 tablet, By Mouth, Daily, # 30 tablet, 5 Refills, Maintenance, 01/02/22 20:35:00 EDT, Tablet, [facility], 1 tablet By Mouth Daily, 170.18, [...] capsule, 2 Refills, Maintenance, 06/02/22 13:19:00 EDT, [facility], 170.18, cm, 07/01/21 8:02:00 EST, Height Start [...] 8:10:00 EDT, Route to Pharmacy Electronically, [facility] 170.18, cm, 09/19/19 14:54:00 EST, Height, [...] 07/01/21 8:58:00 EST, Route to Pharmacy Electronically, [facility], Please print label and instructions in Upper Sorbian., 170.18, cm, 06/20... Start Date: 07/01/21 Status: [...] prostate Confirmed 01/2016 Active Nocturia Confirmed Active [id number] Pediatric Critical Care Nurse Angela Cherry Confirmed Active Tobacco use Confirmed Active 1mod persistent 2had bx per urology Social History Social History Type Response Smoking Status Current every day sm oker; Previous treatment: Nicotine replacement; Interested in cessation: Yes; Tobacco use times per day: 1 ppd; Number of years: 13; Total pack years: 13; entered on: 04/10/18 Sex Patient Care team information Personnel Name: Ruddy Perez DO Address: Address: [address] [place] [id number]
--- OUTSIDE RECORDS SUMMARY | 2023-06-19 13:03 | XMS_ITS | Continuity of Care Document ---
Author Name Unknown Organization [facility] Address [address] [place] [address]- Care Team Providers Care Mechanical Systems Design Engineer Name Role Phone Ruddy Perez DO Primary Care Physician [phone] Encounter [facility] Date(s): 09/03/20 - 10/03/20 [facility] [address] [place] [id number] Attending Physician: Mina Gutierrez Admitting Physician: [...] Comment: [05/30/2018] vaccine information sheet provided in stateless for patient. 2Result Comment: [05/02/2013] Flulavale [id number] 3Admin Note: VIS 03/14/2011 4Admin Note: vis 11/26 5Admin Note: VIS 06/27 6Result Comment: Pt states he received flu shot last June Medications albuterol 0.083% inhalation solution 3 mL = 2.5 mg, Inhalation, Every 6 hours, PRN for wheezing, # 25 each, 6 Refills, Maintenance, 12/11/19 8:25:00 EDT, Solution, [facility] 170.18, cm, 09/19/19 14:54:00 EST, Height, 72.6, kg, 11/27/18 15:36:00 EDT, Dry Weight Start Date: 12/11/19 Status: Ordered albuterol CFC free 90 mcg/inh inhalation aerosol See Instructions, PRN, Inhalation 4 times a day for SOB and wheezing. Afghan instructions, # 1 each, Refills 5, Tot. [...] Mouth, 3 times a day, label in stateless please, # 90 capsule, Refills 5, Tot.Refills 5, Maintenance, 05/17/20 8:49:00 EDT, Route to Pharmacy Electronically, [facility], 170.18, cm, 09/19/19 14:54:00 EST, Height,... Start Date: 05/17/20 Status: Ordered hydrOXYzine hydrochloride 25 mg oral tablet 1 tablet = 25 mg, By Mouth, 3 times a day, PRN as needed for anxiety, PRN FOR ANXIETY. label in stateless please, # 60 tablet, 1 Refills, Maintenance, 12/25/19 15:58:00 EDT, Tablet, [facility] 170.18, cm, 09/19/19 14:54:00 EST, Height,... Start Date: 12/25/19 Status: Ordered multivitamin Therapeutic Multiple Vitamins oral tablet 1 tablet, By Mouth, Daily, # 60 tablet, 1 Refills, Maintenance, 12/05/19 15:38:00 EDT, Tablet, [facility]., 1 tablet By Mouth Daily, 170.18, [...] 1, tablet, By Mouth, Daily, label in stateless please, # 60 tablet, Refills 2, Tot. [...] Replace Required Details, [facility], [facility], 170.18, cm, 09/19/19 14:54:00 EST, [...]
--- OUTSIDE RECORDS SUMMARY | 2023-06-19 13:04 | XMS_ITS | Continuity of Care Document ---
Author Name Unknown Organization [facility] Address [address] [place] [address]- Care Team Providers Care Flame Cutting Machine Operator Name Role Phone Ruddy Perez DO Primary Care Physician [place] [facility] [place] 04/10/22 - 06/03/22 [facility] [address] [place] [id number]- Attending Physician: Luke Randall MD Admitting Physician: Luke Randall MD Referring Physician: Ruddy Perez DO Allergies, Adverse Reactions, Alerts No Known Allergies [...] Comment: [05/30/2018] vaccine information sheet provided in nicaraguan for patient. 2Result Comment: [05/02/2013] Flulavale [id number] 3Admin Note: VIS 03/14/2011 4Admin Note: vis 11/26 5Admin Note: VIS 06/27 6Result Comment: Pt states he received flu shot last June Medications albuterol 0.083% inhalation solution 3 mL = 2.5 mg, Inhalation, Every 6 hours, PRN for wheezing, # 25 each, 6 Refills, Maintenance, 12/11/19 8:25:00 EDT, Solution, [facility], 170.18, cm, 09/19/19 14:54:00 EST, Height, 72.6, kg, 11/27/18 15:36:00 EDT, Dry Weight Start Date: 12/11/19 Status: Ordered albuterol CFC free 90 mcg/inh inhalation aerosol 2, puffs, Inhalation, Every 6 hours, PRN, # 18 Gm, Refills 1, Tot. Refills 1, Maintenance, 02/24/2217:51:00 EDT, Inhaler, Route to Pharmacy Electronically, [id number], [facility], 170.18, cm, 07/01/21 8:02:00... Start Date: [...] Replace Required Details, Route to Pharmacy Electronically, [facility], 170.18, cm, 07/01/21 8:02:00 E... Start Date: 06/02/22 Status: Ordered hydrOXYzine hydrochloride 25 mg oral tablet 1 tablet = 25 mg, By Mouth, 3 times a day, PRN as needed for anxiety, PRN FOR ANXIETY. label in nicaraguan please, # 60 tablet, 1 Refills, Maintenance, 12/25/19 15:58:00 EDT, Tablet, [facility] 170.18, cm, 09/19/19 14:54:00 EST, Height,... Start Date: 12/25/19 Status: Ordered multivitamin Therapeutic Multiple Vitamins oral tablet 1 tablet, By Mouth, Daily, # 30 tablet, 5 Refills, Maintenance, 01/02/22 20:35:00 EDT, Tablet, [facility], 1 tablet By Mouth Daily, 170.18, [...] capsule, 2 Refills, Maintenance, 06/02/22 13:19:00 EDT, [facility], 170.18, cm, 07/01/21 8:02:00 EST, Height Start Date: 06/02/22 Status: Ordered On methadone On methadone, See Instructions, # 1 each, Refills 0, Tot. Refills 0, Maintenance, he is on 60 mg Methadone at home, 11/04/17 8:01:25 EDT, Compound Start Date: 11/04/17 Status: Ordered QUEtiapine 200 mg oral tablet 200 mg, 1, tablet, By Mouth, Daily, label in nicaraguan please, # 60 tablet, Refills 2, Tot. Refills 2, Maintenance, 05/18/20 8:10:00 EDT, Route to Pharmacy Electronically, [facility] 170.18, cm, 09/19/19 14:54:00 EST, [...] 07/01/21 8:58:00 EST, Route to Pharmacy Electronically, [facility], Please print label and instructions in Luxembourgish., 170.18, cm, 06/20... Start Date: 07/01/21 Status: [...] prostate Confirmed 01/2016 Active Nocturia Confirmed Active [id number] Digital Marketing Intern Angela Cherry Confirmed Active Tobacco use Confirmed [...] Personnel Name: Ruddy Perez DO Address: Address: [address] [place] [id number]
--- OUTSIDE RECORDS SUMMARY | 2023-06-19 13:04 | XMS_ITS | Continuity of Care Document ---
Author Name Unknown Organization [facility] Address [address] [place] [address]- Care Team Providers Care Ophthalmic Surgeon Name Role Phone Ruddy Perez DO Primary Care Physician Encounter [facility] Date(s): 11/02/21 - 12/02/21 [facility] [address] [place] [id number] Allergies, Adverse Reactions, Alerts No [...] Comment: [05/30/2018] vaccine information sheet provided in argentine for patient. 2Result Comment: [05/02/2013] Flulavale [id number] 3Admin Note: VIS 03/14/2011 4Admin Note: vis 11/26 5Admin Note: VIS 06/27 6Result Comment: Pt states he received flu shot last June Medications albuterol 0.083% inhalation solution 3 mL = 2.5 mg, Inhalation, Every 6 hours, PRN for wheezing, # 25 each, 6 Refills, Maintenance, 12/11/19 8:25:00 EDT, Solution, [facility] 170.18, cm, 09/19/19 14:54:00 EST, Height, 72.6, kg, 11/27/18 15:36:00 EDT, Dry Weight Start Date: 12/11/19 Status: Ordered albuterol CFC free 90 mcg/inh inhalation aerosol See Instructions, PRN, Inhalation 4 times a day for SOB and wheezing. Citizen Of [place] instructions, # 1 each, Refills 5, Tot. Refills 5, Maintenance, 12/27/20 9:36:00 EDT, Instructions Replace Required Details Inhaler, Route to Pharmacy Electronically, [id number]... Start Date: 12/27/20 Status: Ordered clonazePAM 1 [...] Required Details, Route to Pharmacy Electronically, [facility] 170.18, cm, 07/01/21... Start Date: 11/07/21 Status: Ordered hydrOXYzine hydrochloride 25 mg oral tablet 1 tablet = 25 mg, By Mouth, 3 times a day, PRN as needed for anxiety, PRN FOR ANXIETY. label in argentine please, # 60 tablet, 1 Refills, Maintenance, 12/25/19 15:58:00 EDT, Tablet, [facility], 170.18, cm, 09/19/19 14:54:00 EST, Height,... Start Date: 12/25/19 Status: Ordered multivitamin Therapeutic Multiple Vitamins oral tablet 1 tablet, By Mouth, Daily, # 60 tablet, 5 Refills, Maintenance, 12/28/20 8:34:00 EDT, Tablet, [facility], 1 tablet By Mouth Daily, 170.18, [...] tablet, 2 Refills, Maintenance, 11/02/21 11:27:00 EDT, [facility], 170.18, cm, 07/01/21 8:02:00 EST, Height Start Date: 11/02/21 Status: Ordered QUEtiapine 200 mg oral tablet 200 mg, 1, tablet, By Mouth, Daily, label in argentine please, # 60 tablet, Refills 2, Tot. Refills 2, Maintenance, 05/18/20 8:10:00 EDT, Route to Pharmacy Electronically, [facility], 170.18, cm, 09/19/19 14:54:00 EST, Height, [...] 07/01/21 8:58:00 EST, [facility], Please print label and instructions in Citizen Of [place]., 170.18, cm, 06/20... Start Date: 07/01/21 Status: [...]
--- OUTSIDE RECORDS SUMMARY | 2023-06-19 13:04 | XMS_ITS | Continuity of Care Document ---
Author Name Unknown Organization [facility] Address [address] [place] [address]- Care Team Providers Care Inspector Elevators Name Role Phone Verito Carpenter DO Primary Care Physician Encounter [facility] Date(s): 01/16/20 - 01/23/20 [facility] [address] [place] [address]- [facility] Encounter Diagnosis Abnormal weight loss(Discharge Diagnosis) - 01/16/20 Attending Physician: Ashish REMNANT SORTER, Jill Dawkins Allergies, Adverse Reactions, Alerts No Known Medication [...] Comment: [05/30/2018] vaccine information sheet provided in mosotho for patient. 2Result Comment: [05/02/2013] Flulavale [id number] 3Admin Note: VIS 03/14/2011 4Admin Note: vis 11/26 5Admin Note: VIS 06/27 6Result Comment: Pt states he received flu shot last June Medications albuterol 0.083% inhalation solution 3 mL = 2.5 mg, Inhalation, Every 6 hours, PRN for wheezing, # 25 each, 6 Refills, Maintenance, 12/11/19 8:25:00 EDT, Solution, [facility] 170.18, cm, 09/19/19 14:54:00 EST, Height, 72.6, kg, 11/27/18 15:36:00 EDT, Dry Weight Start Date: 12/11/19 Status: Ordered albuterol CFC free 90 mcg/inh inhalation aerosol See Instructions, PRN, Inhalation 4 times a day for SOB and wheezing. Tamazight instructions, # 1 each, Refills 5, Tot. Refills 5, Maintenance, 12/05/19 15:38:00 EDT, Instructions Replace Required Details Inhaler, Route to Pharmacy Electronically, [id number]... Start Date: 12/05/19 Status: Ordered cloNIDine 0.1 mg oral tablet 0.1 mg, 1, tablet, By Mouth, 2 times a day, # 60 tablet, Refills 0, Tot. Refills 0, Maintenance, 12/25/19 15:58:00 EDT, Route to Pharmacy Electronically, [facility], 170.18, cm, 09/19/19 14:54:00 EST, Height, 72.6, kg, 11/27/18 15:36:0... Start Date: 12/25/19 Status: Ordered gabapentin 300 mg oral capsule 300 mg, 1, capsule, By Mouth, 3 times a day, label in mosotho please, # 90 capsule, Refills 5, Tot.Refills 5, Maintenance, 10/13/19 16:04:00 EST, Route to Pharmacy Electronically, [facility], 170.18, cm, 09/19/19 14:54:00 EST, Height,... Start Date: 10/13/19 Status: Ordered hydrOXYzine hydrochloride 25 mg oral tablet 1 tablet = 25 mg, By Mouth, 3 times a day, PRN as needed for anxiety, PRN FOR ANXIETY. label in mosotho please, # 60 tablet, 1 Refills, Maintenance, 12/25/19 15:58:00 EDT, Tablet, [facility]., 170.18, cm, 09/19/19 14:54:00 EST, Height,... Start Date: 12/25/19 Status: Ordered multivitamin Therapeutic Multiple Vitamins oral tablet 1 tablet, By Mouth, Daily, # 60 tablet, 1 Refills, Maintenance, 12/05/19 15:38:00 EDT, Tablet, [facility], 1 tablet By Mouth Daily, 170.18, [...] tablet, 1 Refills, Maintenance, 12/05/19 15:38:00 EDT, [facility], 170.18, cm, 09/19/19 14:54:00 EST, Height, 72... Start Date: 12/05/19 Status: Ordered QUEtiapine 200 mg oral tablet 200 mg, 1, tablet, By Mouth, Daily, label in mosotho please, # 60 tablet, Refills 2, Tot. Refills 2, Maintenance, 12/05/19 15:38:00 EDT, [facility], [facility] [...] capsule, Refills 0, Tot. Refills 0, Maintenance, 12/04/2014:38:00 EDT, Route to Pharmacy Electronically, [facility], 170.18, cm, 09/19/19 14:54:00 EST, Height, 72.6, kg, 11/27/18 15:36:00 EDT,... Start Date: 12/05/19 Status: Ordered Problem List Condition Effective Dates [...] Active 1mod persistent 2had bx per urology Diagnosis Diagnosis Type Effective Dates Health Status Cl inical Service Informant Abnormal weight loss Discharge Diagnosis 01/16/20 Social History Social History Type Response Smoking Status Current every day sm oker; Previous treatment: Nicotine replacement; Interested in cessation: Yes; Tobacco use times per day: 1 ppd; Number of years: 13; Total pack years: 13; entered on: 8/22/18 Sex
--- OUTSIDE RECORDS SUMMARY | 2023-06-19 13:04 | XMS_ITS | Continuity of Care Document ---
Author Name Unknown Organization [facility] Address [address] [place] [address]- Care Team Providers Care Motor Vehicles Supervisor Name Role Phone Ruddy Perez DO Primary Care Physician Encounter [facility] Date(s): 01/04/22 - 02/03/22 [facility] [address] [place], [place] [address] Attending Physician: Mina Gutierrez Admitting Physician: [...] Comment: [05/30/2018] vaccine information sheet provided in english for patient. 2Result Comment: [05/02/2013] Flulavale [id number] 3Admin Note: VIS 03/14/2011 4Admin Note: vis 11/26 5Admin Note: VIS 06/27 6Result Comment: Pt states he received flu shot last June Medications albuterol 0.083% inhalation solution 3 mL = 2.5 mg, Inhalation, Every 6 hours, PRN for wheezing, # 25 each, 6 Refills, Maintenance, 12/11/19 8:25:00 EDT, [facility] 170.18, cm, 09/19/19 14:54:00 EST, Height, 72.6, kg, 11/27/18 15:36:00 EDT, Dry Weight Start Date: 12/11/19 Status: Ordered albuterol CFC free 90 mcg/inh inhalation aerosol See Instructions, PRN, Inhalation 4 times a day for SOB and wheezing. [place] instructions, # 1 each, Refills 5, Tot. Refills 5, Maintenance, 12/27/20 9:36:00 EDT, Instructions Replace Required Details Inhaler, Route to Pharmacy Electronically, [id number]... Start Date: 12/27/20 Status: Ordered clonazePAM 1 [...] Replace Required Details, Route to Pharmacy Electronically, [facility] 170.18, cm, 07/01/21... Start Date: 11/07/21 Status: Ordered hydrOXYzine hydrochloride 25 mg oral tablet 1 tablet = 25 mg, By Mouth, 3 times a day, PRN as needed for anxiety, PRN FOR ANXIETY. label in english please, # 60 tablet, 1 Refills, Maintenance, 12/25/19 15:58:00 EDT, Tablet, [facility]., 170.18, cm, 09/19/19 14:54:00 EST, Height,... Start Date: 12/25/19 Status: Ordered multivitamin Therapeutic Multiple Vitamins oral tablet 1 tablet, By Mouth, Daily, # 30 tablet, 5 Refills, Maintenance, 01/02/22 20:35:00 EDT, Tablet, [facility], 1 tablet By Mouth Daily, 170.18, [...] tablet, 2 Refills, Maintenance, 01/31/22 12:13:00 EDT, [facility], 170.18, cm, 07/01/21 8:02:00 EST, Height Start Date: 01/31/22 Status: Ordered QUEtiapine 200 mg oral tablet 200 mg, 1, tablet, By Mouth, Daily, label in english please, # 60 tablet, Refills 2, Tot. Refills 2, Maintenance, 05/18/20 8:10:00 EDT, Route to Pharmacy Electronically, [facility], 170.18, cm, 09/19/19 14:54:00 EST, Height, [...] 07/01/21 8:58:00 EST, Route to Pharmacy Electronically, [facility], Please print label and instructions in [place]., 170.18, cm, 06/20... Start Date: 07/01/21 Status: [...]
--- OUTSIDE RECORDS SUMMARY | 2023-06-19 13:04 | XMS_ITS | Continuity of Care Document ---
Author Name Unknown Organization [facility] Address [address] [place] [address]- Care Team Providers Care Regional Intermodal Truck Driver Name Role Phone Ruddy Perez DO Primary Care Physician [phone] Encounter [facility] Date(s): 10/17/22 - 11/16/22 [facility] [address] [place] [id number] Allergies, Adverse Reactions, Alerts No Known Allergies [...] Comment: [05/30/2018] vaccine information sheet provided in malagasy for patient. 2Result Comment: [05/02/2013] Flulavale [id number] 3Admin Note: VIS 03/14/2011 4Admin Note: vis 11/26 5Admin Note: VIS 06/27 6Result Comment: Pt states he received flu shot last June Medications Albuterol (Eqv-ProAir HFA) 90 mcg/inh inhalation aerosol See Instructions, USAR 2 INHALACIONES POR LA BOCA CADA 6 HORAS CUANDO SEA NECESARIO PARA CHARLENE,# 8.5 Gm, 1 Refills, Maintenance, 07/21/22 12:22:00 EST, [facility], 25, USAR 2 INHALACIONES POR [...] tablet, 5 Refills, Maintenance, 07/21/22 12:22:00 EST, [facility], 30, SEKOU 1 TABLETA POR [...] Replace Required Details, Route to Pharmacy Electronically, [facility], 170.18,... Start Date: 08/25/22 Status: Ordered hydrOXYzine hydrochloride 25 mg oral tablet 1 tablet = 25 mg, By Mouth, 3 times a day, PRN as needed for anxiety, PRN FOR ANXIETY. label in malagasy please, # 60 tablet, 1 Refills, Maintenance, 12/25/19 15:58:00 EDT, [facility] 170.18, cm, 09/19/19 14:54:00 EST, [...] capsule, 1 Refills, Maintenance, 10/18/22 9:14:00 EST, [facility], [facility], cm, 09/20/22 11:01:00 EST, Height, [...] 1, tablet, By Mouth, Daily, label in malagasy please, # 60 tablet, Refills 2, Tot. Refills 2, Maintenance, 05/18/20 8:10:00 EDT, [facility], 170.18, cm, 09/19/19 14:54:00 EST, Height, [...] 07/01/21 8:58:00 EST, Route to Pharmacy Electronically, [facility], Please print label and instructions in Gabonese., 170.18, cm, 06/20... Start Date: 07/01/21 Status: [...] prostate Confirmed 01/2016 Active Nocturia Confirmed Active *[id number] Kick Plate Installer Landy Guerrier Confirmed Active Tobacco use Confirmed [...] Care Team Personnel Name: Pearl Torre Position: [facility] Outreach Member Role: Lifetime Consulting Physician Name: Ruddy Perez DO Position: [facility] Resident Member Role: PCP Address: Address: [address] [place] [id number]- Care Team Related Persons Name: FELIBERTO MARTINS Address: home [address] [facility] [address] [place] [address] Name: PT STATES, NONE
--- OUTSIDE RECORDS SUMMARY | 2023-06-19 13:04 | XMS_ITS | Continuity of Care Document ---
Author Name Unknown Organization [facility] Address [address] [place] [address]- Care Team Providers Care Histotechnologist Supervisor Name Role Phone Ruddy Perez DO Primary Care Physician En[facility] Date(s): 03/07/21 - 05/08/21 [facility] [address] [place] [address]- Attending Physician: Luke Randall MD Admitting Physician: [...] Comment: [05/30/2018] vaccine information sheet provided in maltese for patient. 2Result Comment: [05/02/2013] Flulavale [id number] 3Admin Note: VIS 03/14/2011 4Admin Note: vis 11/26 5Admin Note: VIS 06/27 6Result Comment: Pt states he received flu shot last June Medications albuterol 0.083% inhalation solution 3 mL = 2.5 mg, Inhalation, Every 6 hours, PRN for wheezing, # 25 each, 6 Refills, Maintenance, 12/11/19 8:25:00 EDT, Solution, [facility], 170.18, cm, 09/19/19 14:54:00 EST, Height, 72.6, kg, 11/27/18 15:36:00 EDT, Dry Weight Start Date: 12/11/19 Status: Ordered albuterol CFC free 90 mcg/inh inhalation aerosol See Instructions, PRN, Inhalation 4 times a day for SOB and wheezing. Uzbek instructions, # 1 each, Refills 5, Tot. Refills 5, Maintenance, 12/27/20 9:36:00 EDT, Instructions Replace Required Details Inhaler, Route to Pharmacy Electronically, [id number]... Start Date: 12/27/20 Status: Ordered clonazePAM 1 [...] Required Details, Route to Pharmacy Electronically, [facility], 170.18, cm, 09/03/20 16:58:00 EST, Height Start Date: 11/30/20 Status: Ordered hydrOXYzine hydrochloride 25 mg oral tablet 1 tablet = 25 mg, By Mouth, 3 times a day, PRN as needed for anxiety, PRN FOR ANXIETY. label in maltese please, # 60 tablet, 1 Refills, Maintenance, 12/25/19 15:58:00 EDT, Tablet, [facility], 170.18, cm, 09/19/19 14:54:00 EST, Height,... Start Date: 12/25/19 Status: Ordered multivitamin Therapeutic Multiple Vitamins oral tablet 1 tablet, By Mouth, Daily, # 60 tablet, 5 Refills, Maintenance, 12/28/20 8:34:00 EDT, Tablet, [facility], 1 tablet By Mouth Daily, 170.18, [...] tablet, 2 Refills, Maintenance, 12/28/20 8:34:00 EDT, [facility], 170.18, cm, 09/03/20 16:58:00 EST, Height Start Date: 12/28/20 Status: Ordered QUEtiapine 200 mg oral tablet 200 mg, 1, tablet, By Mouth, Daily, label in maltese please, # 60 tablet, Refills 2, Tot. Refills 2, Maintenance, 05/18/20 8:10:00 EDT, Route to Pharmacy Electronically, [facility], 170.18, cm, 09/19/19 14:54:00 EST, Height, [...] Replace Required Details, [facility] to [facility] Electronically, [facility], 170.18, cm, 09/19/19 14:54:00 EST, Height, 72.6, [...]
--- OUTSIDE RECORDS SUMMARY | 2023-06-19 13:04 | XMS_ITS | Continuity of Care Document ---
Author Name Unknown Organization [facility] Address [address] [place] [address]- Care Team Providers Care Radiology Rn Name Role Phone Ruddy Perez DO Primary Care Physician Encounter [facility] Date(s): 04/30/21 - 06/26/21 [facility] [address] [place], [place] [address] Attending Physician: Luke Randall MD Admitting Physician: [...] Comment: [05/30/2018] vaccine information sheet provided in american for patient. 2Result Comment: [05/02/2013] Flulavale [id number] 3Admin Note: VIS 03/14/2011 4Admin Note: vis 11/26 5Admin Note: VIS 06/27 6Result Comment: Pt states he received flu shot last June Medications albuterol 0.083% inhalation solution 3 mL = 2.5 mg, Inhalation, Every 6 hours, PRN for wheezing, # 25 each, 6 Refills, Maintenance, 12/11/19 8:25:00 EDT, Solution, [facility]., 170.18, cm, 09/19/19 14:54:00 EST, Height, 72.6, kg, 11/27/18 15:36:00 EDT, Dry Weight Start Date: 12/11/19 Status: Ordered albuterol CFC free 90 mcg/inh inhalation aerosol See Instructions, PRN, Inhalation 4 times a day for SOB and wheezing. Danish instructions, # 1 each, Refills 5, Tot. Refills 5, Maintenance, 12/27/20 9:36:00 EDT, Instructions Replace Required Details Inhaler, Route to Pharmacy Electronically, [id number]... Start Date: 12/27/20 Status: Ordered clonazePAM 1 [...] Replace Required Details, Route to Pharmacy Electronically, [facility], 170.18, cm, 03/21/21 1... Start Date: 05/19/21 Status: Ordered hydrOXYzine hydrochloride 25 mg oral tablet 1 tablet = 25 mg, By Mouth, 3 times a day, PRN as needed for anxiety, PRN FOR ANXIETY. label in american please, # 60 tablet, 1 Refills, Maintenance, 12/25/19 15:58:00 EDT, Tablet, [facility], 170.18, cm, 09/19/19 14:54:00 EST, Height,... Start Date: 12/25/19 Status: Ordered multivitamin Therapeutic Multiple Vitamins oral tablet 1 tablet, By Mouth, Daily, # 60 tablet, 5 Refills, Maintenance, 12/28/20 8:34:00 EDT, Tablet, [facility]., 1 tablet By Mouth Daily, 170.18, [...] tablet, 2 Refills, Maintenance, 05/11/21 15:34:00 EDT, [facility], 170.18, cm, 03/21/21 15:04:00 EDT, Height Start Date: 05/11/21 Status: Ordered QUEtiapine 200 mg oral tablet 200 mg, 1, tablet, By Mouth, Daily, label in american please, # 60 tablet, Refills 2, Tot. Refills 2, Maintenance, 05/18/20 8:10:00 EDT, Route to Pharmacy Electronically, [facility], 170.18, cm, 09/19/19 14:54:00 EST, Height, 72.6, [...] Replace Required Details, Route to Pharmacy Electronically, [facility], 170.18, cm, 09/19/19 14:54:00 EST, Height, 72.6, [...]
--- OUTSIDE RECORDS SUMMARY | 2023-06-19 13:04 | XMS_ITS | Continuity of Care Document ---
Author Name Unknown Organization [facility] Address [address] [place] [address]- Care Team Providers Care Gravity Manager Name Role Phone Missael Murphy DO Primary Care Physician Encounter [facility] Date(s): 02/12/23 - 03/14/23 [facility] [address] [place] [id number] Allergies, Adverse Reactions, Alerts No [...] Comment: [05/30/2018] vaccine information sheet provided in taiwanese for patient. 2Result Comment: [05/02/2013] Flulavale [id number] 3Admin Note: VIS 03/14/2011 4Admin Note: vis 11/26 5Admin Note: VIS 06/27 6Result Comment: Pt states he received flu shot last June Medications Albuterol (Eqv-ProAir HFA) 90 mcg/inh inhalation aerosol See Instructions, USAR 2 INHALACIONES POR LA BOCA CADA 6 HORAS CUANDO SEA NECESARIO PARA CHARLENE,# 8.5 Gm, 1 Refills, Maintenance, 07/21/22 12:22:00 EST, [facility], 25, USAR 2 INHALACIONES POR [...] tablet, 5 Refills, Maintenance, 01/11/23 11:54:00 EDT, [facility], 30, SEKOU 1 TABLETA POR [...] Replace Required Details, Route to Pharmacy Electronically, [facility], 170, cm, 02/02/23 14:43:00 EDT... Start Date: 02/14/23 Status: Ordered gabapentin 300 mg oral capsule See Instructions, SEKOU 1 CAPSULA POR LA BOCA MASSIEL VECES AL SHANKAR, # 90 capsule, Refills 5, Tot. Refills 5, Maintenance, 08/25/22 17:46:00 EST, Instructions Replace Required Details, Route to Pharmacy Electronically, [facility], 170.18,... Start Date: 08/25/22 Status: Ordered hydrOXYzine hydrochloride 25 mg oral tablet 1 tablet = 25 mg, By Mouth, 3 times a day, PRN as needed for anxiety, PRN FOR ANXIETY. label in taiwanese please, # 60 tablet, 1 Refills, Maintenance, 12/25/19 15:58:00 EDT, Tablet, [facility], 170.18, cm, 09/19/19 14:54:00 EST, Height,... [...] capsule, 1 Refills, Maintenance, 10/18/22 9:14:00 EST, [facility], 170, cm, 09/20/22 11:01:00 EST, Height, 70.3, [...] 1, tablet, By Mouth, Daily, label in taiwanese please, # 60 tablet, Refills 2, Tot. Refills 2, Maintenance, 05/18/20 8:10:00 EDT, Route to Pharmacy Electronically, [facility] 170.18, cm, 09/19/19 14:54:00 EST, Height, 72.6, [...] 07/01/21 8:58:00 EST, Route to Pharmacy Electronically, [facility], Please print label and instructions in Malagasy., 170.18, cm, 06/20... Start Date: 07/01/21 Status: [...] prostate Confirmed 01/2016 Active Nocturia Confirmed Active *[id number]-Paul aaron Guzman Confirmed Active Tobacco use Confirmed [...] Team Personnel Name: Missael Murphy DO Position: [facility] Resident Member Role: PCP Address: Address: [address] [place] [address] [place] [address]- Name: Pearl Torre Position: [facility] Outreach Member Role: Lifetime Consulting Physician Care Team Related Persons Name: FELIBERTO MARTINS Address: home [address] [address] Name: PT STATES, NONE
--- OUTSIDE RECORDS SUMMARY | 2023-06-19 13:04 | XMS_ITS | Continuity of Care Document ---
Author Name Unknown Organization [facility] Address [address] [place] [address]- Care Team Providers Care Toll Collector Name Role Phone Missael Murphy DO Primary Care Physician [phone] Encounter [facility] Date(s): 02/14/23 - 03/16/23 [facility] [address] [place], [place] [address] Allergies, Adverse Reactions, Alerts No [...] Comment: [05/30/2018] vaccine information sheet provided in kazakh for patient. 2Result Comment: [05/02/2013] Flulavale [id number] 3Admin Note: VIS 03/14/2011 4Admin Note: vis 11/26 5Admin Note: VIS 06/27 6Result Comment: Pt states he received flu shot last June Medications Albuterol (Eqv-ProAir HFA) 90 mcg/inh inhalation aerosol See Instructions, USAR 2 INHALACIONES POR LA BOCA CADA 6 HORAS CUANDO SEA NECESARIO PARA CHARLENE,# 8.5 Gm, 1 Refills, Maintenance, 07/21/22 12:22:00 EST, [facility], 25, USAR 2 INHALACIONES POR [...] tablet, 5 Refills, Maintenance, 01/11/23 11:54:00 EDT, [facility], 30, SEKOU 1 TABLETA POR [...] Replace Required Details, Route to Pharmacy Electronically, [facility], 170, cm, 02/02/23 14:43:00 EDT... Start Date: 02/14/23 Status: Ordered gabapentin 300 mg oral capsule See Instructions, SEKOU 1 CAPSULA POR LA BOCA MASSIEL VECES AL SHNAKAR, # 90 capsule, Refills 5, Tot. Refills 5, Maintenance, 08/25/22 17:46:00 EST, Instructions Replace Required Details, Route to Pharmacy Electronically, [facility], 170.18,... Start Date: 08/25/22 Status: Ordered hydrOXYzine hydrochloride 25 mg oral tablet 1 tablet = 25 mg, By Mouth, 3 times a day, PRN as needed for anxiety, PRN FOR ANXIETY. label in kazakh please, # 60 tablet, 1 Refills, Maintenance, 12/25/19 15:58:00 EDT, Tablet, [facility], 170.18, cm, 09/19/19 14:54:00 EST, Height,... [...] capsule, 1 Refills, Maintenance, 10/18/22 9:14:00 EST, [facility], 170, cm, 09/20/22 11:01:00 EST, Height, 70.3, [...] 1, tablet, By Mouth, Daily, label in kazakh please, # 60 tablet, Refills 2, Tot. Refills 2, Maintenance, 05/18/20 8:10:00 EDT, Route to Pharmacy Electronically, [facility] 170.18, cm, 09/19/19 14:54:00 EST, Height, [...] Hospital, Please print label and instructions in Vatican Citizen., 170.18, cm, 06/20... Start Date: 07/01/21 Status: [...] prostate Confirmed 01/2016 Active Nocturia Confirmed Active *[id number]-Paul aaron Guzman Confirmed Active Tobacco use Confirmed [...] Team Personnel Name: Missael Murphy DO Position: [facility] Resident Member Role: PCP Address: Address: [address] [place] [address] [place] [address]- Name: Pearl Torre Position: [facility] Outreach Member Role: Lifetime Consulting Physician Care Team Related Persons Name: FELIBERTO MARTINS Address: home [address] [address] Name: STATES, NONE
--- OUTSIDE RECORDS SUMMARY | 2023-06-19 13:04 | XMS_ITS | Continuity of Care Document ---
Author Name Unknown Organization [facility] Address [address] [place] [address]- Care Team Providers Care Storyboard Artist Name Role Phone Ruddy Perez DO Primary Care Physician [phone] Encounter [facility] Date(s): 03/15/20 - 04/14/20 [facility] [address] [place] [address]- [facility] Allergies, Adverse Reactions, Alerts No Known Medication [...] Comment: [05/30/2018] vaccine information sheet provided in monegasque for patient. 2Result Comment: [05/02/2013] Flulavale [id number] 3Admin Note: VIS 03/14/2011 4Admin Note: vis 11/26 5Admin Note: VIS 06/27 6Result Comment: Pt states he received flu shot last June Medications albuterol 0.083% inhalation solution 3 mL = 2.5 mg, Inhalation, Every 6 hours, PRN for wheezing, # 25 each, 6 Refills, Maintenance, 12/11/19 8:25:00 EDT, Solution, [facility] 170.18, cm, 09/19/19 14:54:00 EST, Height, 72.6, kg, 11/27/18 15:36:00 EDT, Dry Weight Start Date: 12/11/19 Status: Ordered albuterol CFC free 90 mcg/inh inhalation aerosol See Instructions, PRN, Inhalation 4 times a day for SOB and wheezing. Macanese instructions, # 1 each, Refills 5, Tot. Refills 5, Maintenance, 12/05/19 15:38:00 EDT, Instructions Replace Required Details Inhaler, Route to Pharmacy Electronically, [id number]... Start Date: 12/05/19 Status: Ordered cloNIDine 0.1 mg oral tablet 0.1 mg, 1, tablet, By Mouth, 2 times a day, # 60 tablet, Refills 0, Tot. Refills 0, Maintenance, 12/25/19 15:58:00 EDT, Route to Pharmacy Electronically, [facility], 170.18, cm, 09/19/19 14:54:00 EST, Height, 72.6, kg, 11/27/18 15:36:0... Start Date: 12/25/19 Status: Ordered gabapentin 300 mg oral capsule 300 mg, 1, capsule, By Mouth, 3 times a day, label in monegasque please, # 90 capsule, Refills 5, Tot.Refills 5, Maintenance, 10/13/19 16:04:00 EST, Route to Pharmacy Electronically, [facility], 170.18, cm, 09/19/19 14:54:00 EST, Height,... Start Date: 10/13/19 Status: Ordered hydrOXYzine hydrochloride 25 mg oral tablet 1 tablet = 25 mg, By Mouth, 3 times a day, PRN as needed for anxiety, PRN FOR ANXIETY. label in monegasque please, # 60 tablet, 1 Refills, Maintenance, 12/25/19 15:58:00 EDT, Tablet, [facility], 170.18, cm, 09/19/19 14:54:00 EST, Height,... Start Date: 12/25/19 Status: Ordered multivitamin Therapeutic Multiple Vitamins oral tablet 1 tablet, By Mouth, Daily, # 60 tablet, 1 Refills, Maintenance, 12/05/19 15:38:00 EDT, Tablet, [facility], 1 tablet By Mouth Daily, 170.18, [...] tablet, 1 Refills, Maintenance, 12/05/19 15:38:00 EDT, [facility], 170.18, cm, 09/19/19 14:54:00 EST, Height, 72... Start Date: 12/05/19 Status: Ordered QUEtiapine 200 mg oral tablet 200 mg, 1, tablet, By Mouth, Daily, label in monegasque please, # 60 tablet, Refills 2, Tot. Refills 2, Maintenance, 12/05/19 15:38:00 EDT, Route to Pharmacy Electronically, [facility], 170.18, cm, 09/19/19 14:54:00 [...] Maintenance, 209:49:00 EDT, Route to Pharmacy Electronically, [facility] 170.18, cm, 09/19/19 14:54:00 EST, Height, [...]
--- OUTSIDE RECORDS SUMMARY | 2023-06-19 13:04 | XMS_ITS | Continuity of Care Document ---
Author Name Unknown Organization [facility] Address [address] [place] [address]- Care Team Providers Care Benefits Analyst Name Role Phone Normawally Verito MEDEL Primary Care Physician Encounter [facility] Date(s): 01/09/20 - 01/16/20 [facility] [address] [place] [address]- [facility] Attending Physician: Luke Randall MD Allergies, Adverse Reactions, [...] Comment: [05/30/2018] vaccine information sheet provided in armenian for patient. 2Result Comment: [05/02/2013] Flulavale [id number] 3Admin Note: VIS 03/14/2011 4Admin Note: vis 11/26 5Admin Note: VIS 06/27 6Result Comment: Pt states he received flu shot last June Medications albuterol 0.083% inhalation solution 3 mL = 2.5 mg, Inhalation, Every 6 hours, PRN for wheezing, # 25 each, 6 Refills, Maintenance, 12/11/19 8:25:00 EDT, Solution, [facility], 170.18, cm, 09/19/19 14:54:00 EST, Height, 72.6, kg, 11/27/18 15:36:00 EDT, Dry Weight Start Date: 12/11/19 Status: Ordered albuterol CFC free 90 mcg/inh inhalation aerosol See Instructions, PRN, Inhalation 4 times a day for SOB and wheezing. Maori instructions, # 1 each, Refills 5, Tot. Refills 5, Maintenance, 12/05/19 15:38:00 EDT, Instructions Replace Required Details Inhaler, Route to Pharmacy Electronically, [id number]... Start Date: 12/05/19 Status: Ordered cloNIDine 0.1 mg oral tablet 0.1 mg, 1, tablet, By Mouth, 2 times a day, # 60 tablet, Refills 0, Tot. Refills 0, Maintenance, 12/25/19 15:58:00 EDT, Route to Pharmacy Electronically, [facility], 170.18, cm, 09/19/19 14:54:00 EST, Height, 72.6, kg, 11/27/18 15:36:0... Start Date: 12/25/19 Status: Ordered gabapentin 300 mg oral capsule 300 mg, 1, capsule, By Mouth, 3 times a day, label in armenian please, # 90 capsule, Refills 5, Tot.Refills 5, Maintenance, 10/13/19 16:04:00 EST, Route to Pharmacy Electronically, [facility], 170.18, cm, 09/19/19 14:54:00 EST, Height,... Start Date: 10/13/19 Status: Ordered hydrOXYzine hydrochloride 25 mg oral tablet 1 tablet = 25 mg, By Mouth, 3 times a day, PRN as needed for anxiety, PRN FOR ANXIETY. label in armenian please, # 60 tablet, 1 Refills, Maintenance, 12/25/19 15:58:00 EDT, Tablet, [facility], 170.18, cm, 09/19/19 14:54:00 EST, Height,... Start Date: 12/25/19 Status: Ordered multivitamin Therapeutic Multiple Vitamins oral tablet 1 tablet, By Mouth, Daily, # 60 tablet, 1 Refills, Maintenance, 12/05/19 15:38:00 EDT, Tablet, [facility], 1 tablet By Mouth Daily, 170.18, cm, 09/19/19 14:54:00 EST, Height, 72.6, kg, 11/27/18 15:36:00 EDT, Dry Weight Start Date: 12/05/19 Status: Ordered On methadone On methadone, See [...] tablet, 1 Refills, Maintenance, 12/05/19 15:38:00 EDT, [facility], 170.18, cm, 09/19/19 14:54:00 EST, Height, 72... Start Date: 12/05/19 Status: Ordered QUEtiapine 200 mg oral tablet 200 mg, 1, tablet, By Mouth, Daily, label in armenian please, # 60 tablet, Refills 2, Tot. Refills 2, Maintenance, 12/05/19 15:38:00 EDT, Route to Pharmacy Electronically, [facility], 170.18, cm, 09/19/19 14:54:00 EST, Height, [...] Maintenance, 12/04/2014:38:00 EDT, Route to Pharmacy Electronically, [facility], 170.18, cm, 09/19/19 14:54:00 EST, Height, [...]
--- OUTSIDE RECORDS SUMMARY | 2023-06-19 13:04 | XMS_ITS | Continuity of Care Document ---
Author Name Unknown Organization [facility] Address [address] [place] [address]- Care Team Providers Care Customer Care Consultant Name Role Phone Normawally Verito MEDEL Primary Care Physician Encounter [facility] Date(s): 01/05/20 - 01/12/20 [facility] [address] [place] [address]- [facility] Attending Physician: Luke Randall MD Allergies, Adverse [...] Comment: [05/30/2018] vaccine information sheet provided in romanian for patient. 2Result Comment: [05/02/2013] Flulavale [id number] 3Admin Note: VIS 03/14/2011 4Admin Note: vis 11/26 5Admin Note: VIS 06/27 6Result Comment: Pt states he received flu shot last June Medications albuterol 0.083% inhalation solution 3 mL = 2.5 mg, Inhalation, Every 6 hours, PRN for wheezing, # 25 each, 6 Refills, Maintenance, 12/11/19 8:25:00 EDT, Solution, [facility], 170.18, cm, 09/19/19 14:54:00 EST, [...] 12/25/19 15:58:00 EDT, Route to Pharmacy Electronically, [facility], 170.18, cm, 09/19/19 14:54:00 EST, Height, 72.6, kg, 11/27/18 15:36:0... Start Date: 12/25/19 Status: Ordered gabapentin 300 mg oral capsule 300 mg, 1, capsule, By Mouth, 3 times a day, label in romanian please, # 90 capsule, Refills 5, Tot.Refills 5, Maintenance, 10/13/19 16:04:00 EST, Route to Pharmacy Electronically, [facility], 170.18, cm, 09/19/19 14:54:00 EST, Height,... Start Date: 10/13/19 Status: Ordered hydrOXYzine hydrochloride 25 mg oral tablet 1 tablet = 25 mg, By Mouth, 3 times a day, PRN as needed for anxiety, PRN FOR ANXIETY. label in romanian please, # 60 tablet, 1 Refills, Maintenance, 12/25/19 15:58:00 EDT, Tablet, [facility], 170.18, cm, 09/19/19 14:54:00 EST, Height,... Start Date: 12/25/19 Status: Ordered multivitamin Therapeutic Multiple Vitamins oral tablet 1 tablet, By Mouth, Daily, # 60 tablet, 1 Refills, Maintenance, 12/05/19 15:38:00 EDT, Tablet, [facility], 1 tablet By Mouth Daily, [...] tablet, 1 Refills, Maintenance, 12/05/19 15:38:00 EDT, [facility], 170.18, cm, 09/19/19 14:54:00 EST, Height, 72... Start Date: 12/05/19 Status: Ordered QUEtiapine 200 mg oral tablet 200 mg, 1, tablet, By Mouth, Daily, label in romanian please, # 60 tablet, Refills 2, Tot. Refills 2, Maintenance, 12/05/19 15:38:00 EDT, Route to Pharmacy Electronically, [facility], 170.18, cm, 09/19/19 14:54:00 EST, [...] Maintenance, 12/04/2014:38:00 EDT, Route to Pharmacy Electronically, [facility], 170.18, cm, 09/19/19 14:54:00 EST, [...]
--- OUTSIDE RECORDS SUMMARY | 2023-06-19 13:04 | XMS_ITS | Continuity of Care Document ---
Author Name Unknown Organization [facility] Address [address] [place] [address]- Care Team Providers Care Physics Professor Name Role Phone Ruddy Perez DO Primary Care Physician Encounter [facility] Date(s): 12/14/21 - 01/13/22 [facility] [address] [place] [id number] Allergies, Adverse Reactions, Alerts [...] Comment: [05/30/2018] vaccine information sheet provided in italian for patient. 2Result Comment: [05/02/2013] Flulavale [id number] 3Admin Note: VIS 03/14/2011 4Admin Note: vis 11/26 5Admin Note: VIS 06/27 6Result Comment: Pt states he received flu shot last June Medications albuterol 0.083% inhalation solution 3 mL = 2.5 mg, Inhalation, Every 6 hours, PRN for wheezing, # 25 each, 6 Refills, Maintenance, 12/11/19 8:25:00 EDT, Solution, [facility] 170.18, cm, 09/19/19 14:54:00 EST, Height, 72.6, kg, 11/27/18 15:36:00 EDT, Dry Weight Start Date: 12/11/19 Status: Ordered albuterol CFC free 90 mcg/inh inhalation aerosol See Instructions, PRN, Inhalation 4 times a day for SOB and wheezing. Afghan instructions, # 1 each, Refills 5, Tot. Refills 5, Maintenance, 12/27/20 9:36:00 EDT, Instructions Replace Required Details Inhaler, Route to Pharmacy Electronically, [id number]... Start Date: 12/27/20 Status: Ordered clonazePAM 1 [...] Replace Required Details, Route to Pharmacy Electronically, [facility] 170.18, cm, 07/01/21... Start Date: 11/07/21 Status: Ordered hydrOXYzine hydrochloride 25 mg oral tablet 1 tablet = 25 mg, By Mouth, 3 times a day, PRN as needed for anxiety, PRN FOR ANXIETY. label in italian please, # 60 tablet, 1 Refills, Maintenance, 12/25/19 15:58:00 EDT, Tablet, [facility], 170.18, cm, 09/19/19 14:54:00 EST, Height,... Start Date: 12/25/19 Status: Ordered multivitamin Therapeutic Multiple Vitamins oral tablet 1 tablet, By Mouth, Daily, # 30 tablet, 5 Refills, Maintenance, 01/02/22 20:35:00 EDT, Tablet, [facility], 1 tablet By Mouth Daily, [...] tablet, 2 Refills, Maintenance, 11/02/21 11:27:00 EDT, [facility], 170.18, cm, 07/01/21 8:02:00 EST, Height Start Date: 11/02/21 Status: Ordered QUEtiapine 200 mg oral tablet 200 mg, 1, tablet, By Mouth, Daily, label in italian please, # 60 tablet, Refills 2, Tot. Refills 2, Maintenance, 05/18/20 8:10:00 EDT, Route to Pharmacy Electronically, [facility], 170.18, cm, 09/19/19 14:54:00 EST, [...] 07/01/21 8:58:00 EST, [facility] Please print label and instructions in Afghan., 170.18, cm, 06/20... Start Date: 07/01/21 Status: [...]
--- OUTSIDE RECORDS SUMMARY | 2023-06-19 13:04 | XMS_ITS | Continuity of Care Document ---
Author Name Unknown Organization [facility] Address [address] [place] [address]- Care Team Providers Care Compensation Vice President Name Role Phone Verito Carpenter DO Primary Care Physician [phone] [id number] Date(s): 10/03/19 - 10/13/[address] [address]- [facility] Attending Physician: Mina Gutierrez Admitting Physician: AdmtrMina Referring Physician: Admtr, Ar8 Allergies, Adverse Reactions, Alerts No Known Medication [...] Comment: [05/30/2018] vaccine information sheet provided in libyan for patient. 2Result Comment: [05/02/2013] Flulavale [id number] 3Admin Note: VIS 03/14/2011 4Admin Note: vis [...] times a day for SOB and wheezing. Vatican Citizen instructions, # 1 each, Refills 5, Tot. [...] Mouth, 3 times a day, label in libyan please, # 90 capsule, Refills 5, Tot.Refills 5, Maintenance, 10/13/19 16:04:00 EST, Route to Pharmacy Electronically, [facility], 170.18, cm, 09/19/19 14:54:00 EST, Height,... Start Date: 10/13/19 Status: Ordered hydrOXYzine hydrochloride 25 mg oral tablet 1 tablet = 25 mg, By Mouth, 3 times a day, PRN as needed for anxiety, PRN FOR ANXIETY. label in libyan please, # 60 tablet, 1 Refills, Maintenance, 08/08/19 21:12:00 EST, Tablet, [facility], 170.18, cm, 03/28/19 14:33:00 EDT, Height,... Start [...] 1, tablet, By Mouth, Daily, label in libyan please, # 60 tablet, Refills 2, Tot. Refills 2, Maintenance, 09/11/18 12:35:11 EST, Route to Pharmacy Electronically, [id number], [facility] Start Date: 09/11/18 Status: Ordered QUEtiapine 50 mg oral tablet 1 tablet = 50 mg, By Mouth, Daily, # 30 tablet, 0 Refills, Maintenance, 09/23/18 10:07:51 EST, Tablet Start Date: 09/23/18 Status: Ordered sertraline 50 mg oral tablet 1 tablet = 50 mg, By Mouth, Daily, label in libyan please, # 90 tablet, 2 Refills, Maintenance, [...]
--- OUTSIDE RECORDS SUMMARY | 2023-06-19 13:04 | XMS_ITS | Continuity of Care Document ---
Author Name Unknown Organization [facility] Address [address] [place] [address]- Care Team Providers Care Sourcing Coordinator Name Role Phone Verito Carpenter DO Primary Care Physician Encounter [facility] Date(s): 02/06/20 - 02/07/[address] [address] Encounter Diagnosis Medication management(Final) - 02/07/20 Discharge Disposition: A-D/C Home Attending Physician: Michelle Brady DO Admitting Physician: Michelle Brady DO Referring Physician: Not on Staff, Referring MD [...] Comment: [05/30/2018] vaccine information sheet provided in zambian for patient. 2Result Comment: [05/02/2013] Flulavale [id number] 3Admin Note: VIS 03/14/2011 4Admin Note: vis 11/26 5Admin Note: VIS 06/27 6Result Comment: Pt states he received flu shot last June Medications albuterol 0.083% inhalation solution 3 mL = 2.5 mg, Inhalation, Every 6 hours, PRN for wheezing, # 25 each, 6 Refills, Maintenance, 12/11/19 8:25:00 EDT, Solution, [facility] 170.18, cm, 09/19/19 14:54:00 EST, Height, 72.6, kg, 11/27/18 15:36:00 EDT, Dry Weight Start Date: 12/11/19 Status: Ordered albuterol CFC free 90 mcg/inh inhalation aerosol See Instructions, PRN, Inhalation 4 times a day for SOB and wheezing. Ukrainian instructions, # 1 each, Refills 5, Tot. Refills 5, Maintenance, 12/05/19 15:38:00 EDT, Instructions Replace Required Details Inhaler, Route to Pharmacy Electronically, [id number]... Start Date: 12/05/19 Status: Ordered cloNIDine 0.1 mg oral tablet 0.1 mg, 1, tablet, By Mouth, 2 times a day, # 60 tablet, Refills 0, Tot. Refills 0, Maintenance, 12/25/19 15:58:00 EDT, Route to Pharmacy Electronically, [facility], 170.18, cm, 09/19/19 14:54:00 EST, Height, 72.6, kg, 11/27/18 15:36:0... Start Date: 12/25/19 Status: Ordered gabapentin 300 mg oral capsule 300 mg, 1, capsule, By Mouth, 3 times a day, label in zambian please, # 90 capsule, Refills 5, Tot.Refills 5, Maintenance, 10/13/19 16:04:00 EST, Route to Pharmacy Electronically, [facility], 170.18, cm, 09/19/19 14:54:00 EST, Height,... Start Date: 10/13/19 Status: Ordered hydrOXYzine hydrochloride 25 mg oral tablet 1 tablet = 25 mg, By Mouth, 3 times a day, PRN as needed for anxiety, PRN FOR ANXIETY. label in zambian please, # 60 tablet, 1 Refills, Maintenance, 12/25/19 15:58:00 EDT, Tablet, [facility] 170.18, cm, 09/19/19 14:54:00 EST, Height,... Start Date: 12/25/19 Status: Ordered multivitamin Therapeutic Multiple Vitamins oral tablet 1 tablet, By Mouth, Daily, # 60 tablet, 1 Refills, Maintenance, 12/05/19 15:38:00 EDT, Tablet, [facility], 1 tablet By Mouth Daily, [...] tablet, 1 Refills, Maintenance, 12/05/19 15:38:00 EDT, [facility], 170.18, cm, 09/19/19 14:54:00 EST, Height, 72... Start Date: 12/05/19 Status: Ordered QUEtiapine 200 mg oral tablet 200 mg, 1, tablet, By Mouth, Daily, label in zambian please, # 60 tablet, Refills 2, Tot. Refills 2, Maintenance, 12/05/19 15:38:00 EDT, Route to Pharmacy Electronically, [facility], 170.18, cm, 09/19/19 14:54:00 EST, [...] Maintenance, 12/04/2014:38:00 EDT, Route to Pharmacy Electronically, [facility], 170.18, cm, 09/19/19 14:54:00 EST, [...] Active 1mod persistent 2had bx per urology Vital Signs Most recent to oldest [Reference Range]: 1 2 3 Oxygen Saturation [94-100 %] 97 % (02/07/20 11:36 AM) 100 % (02/07/20 9:18 AM) 97 % (02/07/20 6:17 AM) Pulse Rate [55-90 bpm] 78 bpm (02/07/20 11:36 AM) 66 bpm (02/07/20 9:18 AM) 70 bpm (02/07/20 6:17 AM) Blood Pressure [90-138/55-84 mm Hg] 138/80mm Hg (02/07/20 11:36 AM) 144/78mm Hg *H* (02/07/20 9:18 AM) 147/81mm Hg *H* (02/07/20 6:17 AM) Respiratory Rate [16-30 br/min] 16 br/min (02/07/20 11:36 AM) 20 br/min (02/07/20 9:18 AM) 18 br/min (02/07/20 6:17 AM) Temperature [96.8-100.4 DegF] 98.4 DegF (02/07/20 11:36 AM) 98.3 DegF (02/07/20 9:18 AM) 98.5 DegF (02/06/20 8:29 PM) Mode of Delivery (Oxygen) Room air (02/07/20 11:36 AM) Room air (02/07/20 9:18 AM) Room air (02/07/20 6:17 AM) Blood pressure sites Arm, right (02/07/20 11:36 AM) Arm, right (02/07/20 9:18 AM) Temperature Route Oral (02/07/20 11:36 AM) Oral (02/07/20 9:18 AM) Oral (02/06/20 8:29 PM) Social History Social History Type Response Smoking Status Current every day sandra ortiz; Previous treatment: Nicotine replacement; Interested in cessation: Yes; Tobacco use times per day: 1 ppd; Number of years: 13; Total pack years: 13; entered on: 04/10/18 Sex
--- OUTSIDE RECORDS SUMMARY | 2023-06-19 13:04 | XMS_ITS | Continuity of Care Document ---
Author Name Unknown Organization [facility] Address [address] [place] [address]- Care Team Providers Care Health Inspector Name Role Phone Ruddy Perez DO Primary Care Physician Encounter [facility] Date(s): 03/09/21 - 04/08/21 [facility] [address] [place], [place] [address] Allergies, Adverse Reactions, Alerts No Known Medication [...] Comment: [05/30/2018] vaccine information sheet provided in estonian for patient. 2Result Comment: [05/02/2013] Flulavale [id number] 3Admin Note: VIS 03/14/2011 4Admin Note: vis 11/26 5Admin Note: VIS 06/27 6Result Comment: Pt states he received flu shot last June Medications albuterol 0.083% inhalation solution 3 mL = 2.5 mg, Inhalation, Every 6 hours, PRN for wheezing, # 25 each, 6 Refills, Maintenance, 12/11/19 8:25:00 EDT, Solution[facility] 170.18, cm, 09/19/19 14:54:00 EST, Height, 72.6, kg, 11/27/18 15:36:00 EDT, Dry Weight Start Date: 12/11/19 Status: Ordered albuterol CFC free 90 mcg/inh inhalation aerosol See Instructions, PRN, Inhalation 4 times a day for SOB and wheezing. Slovak instructions, # 1 each, Refills 5, Tot. Refills 5, Maintenance, 12/27/20 9:36:00 EDT, Instructions Replace Required Details Inhaler, Route to Pharmacy Electronically, [id number]... Start Date: 12/27/20 Status: Ordered clonazePAM 1 [...] Replace Required Details, Route to Pharmacy Electronically, [facility], 170.18, cm, 09/03/20 16:58:00 EST, Height Start Date: 11/30/20 Status: Ordered hydrOXYzine hydrochloride 25 mg oral tablet 1 tablet = 25 mg, By Mouth, 3 times a day, PRN as needed for anxiety, PRN FOR ANXIETY. label in estonian please, # 60 tablet, 1 Refills, Maintenance, 12/25/19 15:58:00 EDT, Tablet, [facility], 170.18, cm, 09/19/19 14:54:00 EST, Height,... Start Date: 12/25/19 Status: Ordered multivitamin Therapeutic Multiple Vitamins oral tablet 1 tablet, By Mouth, Daily, # 60 tablet, 5 Refills, Maintenance, 12/28/20 8:34:00 EDT, Tablet, [facility], 1 tablet By Mouth Daily, 170.18, cm, [...] tablet, 2 Refills, Maintenance, 12/28/20 8:34:00 EDT, [facility], 170.18, cm, 09/03/20 16:58:00 EST, Height Start Date: 12/28/20 Status: Ordered QUEtiapine 200 mg oral tablet 200 mg, 1, tablet, By Mouth, Daily, label in estonian please, # 60 tablet, Refills 2, Tot. Refills 2, Maintenance, 05/18/20 8:10:00 EDT, Route to Pharmacy Electronically, [facility], 170.18, cm, 09/19/19 14:54:00 EST, Height, 72.6, [...] Replace Required Details, [facility], 170.18, cm, 09/19/19 14:54:00 EST, Height, [...]
--- OUTSIDE RECORDS SUMMARY | 2023-06-19 13:04 | XMS_ITS | Continuity of Care Document ---
Author Name Unknown Organization [facility] Address [address] [place] [address]- Care Team Providers Care Curb Setter Helper Name Role Phone Ruddy Perez DO Primary Care Physician Encounter [facility] Date(s): 03/04/21 - 04/03/21 [facility] [address] [place], [place] [id number] Allergies, Adverse Reactions, Alerts No Known Medication Allergies Substance Reaction Severity Status NKA Active Immunizations Given and Recorded Vaccine Date Status Refusal Reason influenza virus vaccine, inactivated 09/03/20 Give n influenza virus vaccine, inactivated 1 05/30/18 Gi naabela influenza virus vaccine, inactivated 06/12/16 Give n [...] albanian for patient. 2Result Comment: [05/02/2013] [place] [id number] 3Admin Note: VIS 03/14/2011 4Admin Note: vis 11/26 5Admin Note: VIS 06/27 6Result Comment: Pt states he received flu shot last June Medications albuterol 0.083% inhalation solution 3 mL = 2.5 mg, Inhalation, Every 6 hours, PRN for wheezing, # 25 each, 6 Refills, Maintenance, 12/11/19 8:25:00 EDT, Solution, [facility] 170.18, cm, 09/19/19 14:54:00 EST, Height, 72.6, kg, 11/27/18 15:36:00 EDT, Dry Weight Start Date: 12/11/19 Status: Ordered albuterol CFC free 90 mcg/inh inhalation aerosol See Instructions, PRN, Inhalation 4 times a day for SOB and wheezing. Persian instructions, # 1 each, Refills 5, Tot. Refills 5, Maintenance, 12/27/20 9:36:00 EDT, Instructions Replace Required Details Inhaler, Route to Pharmacy Electronically, [id number]... Start Date: 12/27/20 Status: Ordered clonazePAM 1 [...] Required Details, Route to Pharmacy Electronically, [facility], 170.18, cm, 09/03/20 16:58:00 EST, [...] 5 Refills, Maintenance, 12/28/20 8:34:00 EDT, Tablet, [facility], 1 [...] tablet, 2 Refills, Maintenance, 12/28/20 8:34:00 EDT, [facility], 170.18, cm, 09/03/20 16:58:00 EST, Height Start Date: 12/28/20 Status: Ordered QUEtiapine 200 mg oral tablet 200 mg, 1, tablet, By Mouth, Daily, label in albanian please, # 60 tablet, Refills 2, Tot. Refills 2, Maintenance, 05/18/20 8:10:00 EDT, [facility] to [facility]acy Electronically, [facility] [...] Replace Required Details, [facility], 170.18, cm, 09/19/19 14:54:00 [...]
--- OUTSIDE RECORDS SUMMARY | 2023-06-19 13:05 | XMS_ITS | Continuity of Care Document ---
Author Name Unknown Organization [facility]3] Adult Medicine Address [address] [place] [address]- Care Team Providers Care On Site Coordinator Name Role Phone Ruddy Perez DO Primary Care Physician Encounter [facility] Date(s): 12/31/20 - 03/05/21 [facility]3] Adult Medicine [address] [place] [id number] Attending Physician: Ashish PRATHER, Jill Dawkins Admitting Physician: Ashish PRATHER, Jill Dawkins Allergies, Adverse Reactions, Alerts No [...] sudanese for patient. 2Result Comment: [05/02/2013] [place] [id number] 3Admin Note: VIS 03/14/2011 4Admin Note: vis 11/26 5Admin Note: VIS 06/27 6Result Comment: Pt states he received flu shot last June Medications albuterol 0.083% inhalation solution 3 mL = 2.5 mg, Inhalation, Every 6 hours, PRN for wheezing, # 25 each, 6 Refills, Maintenance, 12/11/19 8:25:00 EDT, [facility] 170.18, cm, 09/19/19 14:54:00 EST, Height, 72.6, kg, 11/27/18 15:36:00 EDT, Dry Weight Start Date: 12/11/19 Status: Ordered albuterol CFC free 90 mcg/inh inhalation aerosol See Instructions, PRN, Inhalation 4 times a day for SOB and wheezing. Maldivian instructions, # 1 each, Refills 5, Tot. Refills 5, Maintenance, 12/27/20 9:36:00 EDT, Instructions Replace Required Details Inhaler, Route to Pharmacy Electronically, [id number]... Start Date: 12/27/20 Status: Ordered finasteride 5 [...] Replace Required Details, Route to Pharmacy Electronically, [facility], 170.18, cm, 09/03/20 16:58:00 EST, Height Start Date: 11/30/20 Status: Ordered hydrOXYzine hydrochloride 25 mg oral tablet 1 tablet = 25 mg, By Mouth, 3 times a day, PRN as needed for anxiety, PRN FOR ANXIETY. label in south sudanese please, # 60 tablet, 1 Refills, Maintenance, 12/25/19 15:58:00 EDT, Tablet, [facility] 170.18, cm, 09/19/19 14:54:00 EST, Height,... Start Date: 12/25/19 Status: Ordered multivitamin Therapeutic Multiple Vitamins oral tablet 1 tablet, By Mouth, Daily, # 60 tablet, 5 Refills, Maintenance, 12/28/20 8:34:00 EDT, Tablet, [facility] 1 tablet By Mouth Daily, [...] tablet, 2 Refills, Maintenance, 12/28/20 8:34:00 EDT, [facility], 170.18, cm, 09/03/20 16:58:00 EST, Height Start Date: 12/28/20 Status: Ordered QUEtiapine 200 mg oral tablet 200 mg, 1, tablet, By Mouth, Daily, label in south sudanese please, # 60 tablet, Refills 2, Tot. Refills 2, Maintenance, 05/18/20 8:10:00 EDT, Route to Pharmacy Electronically, [facility], 170.18, cm, 09/19/19 14:54:00 EST, [...] Replace Required Details, [facility], [facility], 170.18, cm, 09/19/19 14:54:00 EST, [...]
--- OUTSIDE RECORDS SUMMARY | 2023-06-19 13:05 | XMS_ITS | Continuity of Care Document ---
Author Name Unknown Organization [facility] Address [address] [place] [address]- Care Team Providers Care Supervisor Force Adjustment Name Role Phone Ruddy Perez DO Primary Care Physician [phone] Encounter [facility] Date(s): 05/10/21 - 06/09/21 [facility] [address] [place] [id number] Allergies, Adverse Reactions, Alerts No Known [...] Comment: [05/30/2018] vaccine information sheet provided in brazilian for patient. 2Result Comment: [05/02/2013] [place] [id number] 3Admin Note: VIS 03/14/2011 4Admin Note: vis 11/26 5Admin Note: VIS 06/27 6Result Comment: Pt states he received flu shot last June Medications albuterol 0.083% inhalation solution 3 mL = 2.5 mg, Inhalation, Every 6 hours, PRN for wheezing, # 25 each, 6 Refills, Maintenance, 12/11/19 8:25:00 EDT, Solution, [facility] 170.18, cm, 09/19/19 14:54:00 EST, Height, 72.6, kg, 11/27/18 15:36:00 EDT, Dry Weight Start Date: 12/11/19 Status: Ordered albuterol CFC free 90 mcg/inh inhalation aerosol See Instructions, PRN, Inhalation 4 times a day for SOB and wheezing. Amharic instructions, # 1 each, Refills 5, Tot. Refills 5, Maintenance, 12/27/20 9:36:00 EDT, Instructions Replace Required Details Inhaler, Route to Pharmacy Electronically, [id number]... Start Date: 12/27/20 Status: Ordered clonazePAM 1 [...] Replace Required Details, Route to Pharmacy Electronically, [facility], 170.18, cm, 03/21/21 1... Start Date: 05/19/21 Status: Ordered hydrOXYzine hydrochloride 25 mg oral tablet 1 tablet = 25 mg, By Mouth, 3 times a day, PRN as needed for anxiety, PRN FOR ANXIETY. label in brazilian please, # 60 tablet, 1 Refills, Maintenance, 12/25/19 15:58:00 EDT, Tablet, [facility], 170.18, cm, 09/19/19 14:54:00 EST, Height,... Start Date: 12/25/19 Status: Ordered multivitamin Therapeutic Multiple Vitamins oral tablet 1 tablet, By Mouth, Daily, # 60 tablet, 5 Refills, Maintenance, 12/28/20 8:34:00 EDT, Tablet, [facility], 1 tablet By Mouth Daily, [...] tablet, 2 Refills, Maintenance, 05/11/21 15:34:00 EDT, [facility], 170.18, cm, 03/21/21 15:04:00 EDT, Height Start Date: 05/11/21 Status: Ordered QUEtiapine 200 mg oral tablet 200 mg, 1, tablet, By Mouth, Daily, label in brazilian please, # 60 tablet, Refills 2, Tot. Refills 2, Maintenance, 05/18/20 8:10:00 EDT, Route to Pharmacy Electronically, [facility], 170.18, cm, 09/19/19 14:54:00 EST, [...] Replace Required Details, [facility], 170.18, cm, 09/19/19 14:54:00 EST, Height, [...]
--- OUTSIDE RECORDS SUMMARY | 2023-06-19 13:05 | XMS_ITS | Patient Health Record ---
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
--- OUTSIDE RECORDS SUMMARY | 2023-06-19 13:05 | XMS_ITS | Continuity of Care Document ---
Author Name Unknown Organization [facility] Address [address] [place] [address]- Care Team Providers Care Rack Carrier Name Role Phone Ruddy Perez DO Primary Care Physician Encounter [facility] Date(s): 01/02/22 - 02/01/22 [facility] [address] [place] [id number] Allergies, Adverse Reactions, Alerts No Known Allergies [...] Comment: [05/30/2018] vaccine information sheet provided in barbadian for patient. 2Result Comment: [05/02/2013] [place] [id number] 3Admin Note: VIS 03/14/2011 4Admin Note: vis 11/26 5Admin Note: VIS 06/27 6Result Comment: Pt states he received flu shot last June Medications albuterol 0.083% inhalation solution 3 mL = 2.5 mg, Inhalation, Every 6 hours, PRN for wheezing, # 25 each, 6 Refills, Maintenance, 12/11/19 8:25:00 EDT, Solution, [facility] 170.18, cm, 09/19/19 14:54:00 EST, Height, 72.6, kg, 11/27/18 15:36:00 EDT, Dry Weight Start Date: 12/11/19 Status: Ordered albuterol CFC free 90 mcg/inh inhalation aerosol See Instructions, PRN, Inhalation 4 times a day for SOB and wheezing. Iraqi instructions, # 1 each, Refills 5, Tot. Refills 5, Maintenance, 12/27/20 9:36:00 EDT, Instructions Replace Required Details Inhaler, Route to Pharmacy Electronically, [id number]... Start Date: 12/27/20 Status: Ordered clonazePAM 1 [...] Replace Required Details, Route to Pharmacy Electronically, [facility] 170.18, cm, 07/01/21... Start Date: 11/07/21 Status: Ordered hydrOXYzine hydrochloride 25 mg oral tablet 1 tablet = 25 mg, By Mouth, 3 times a day, PRN as needed for anxiety, PRN FOR ANXIETY. label in barbadian please, # 60 tablet, 1 Refills, Maintenance, 12/25/19 15:58:00 EDT, Tablet, [facility], 170.18, cm, 09/19/19 14:54:00 EST, Height,... Start Date: 12/25/19 Status: Ordered multivitamin Therapeutic Multiple Vitamins oral tablet 1 tablet, By Mouth, Daily, # 30 tablet, 5 Refills, Maintenance, 01/02/22 20:35:00 EDT, Tablet, [facility], 1 tablet By Mouth Daily, 170.18, cm, [...] tablet, 2 Refills, Maintenance, 01/31/22 12:13:00 EDT, [facility], 170.18, cm, 07/01/21 8:02:00 EST, Height Start Date: 01/31/22 Status: Ordered QUEtiapine 200 mg oral tablet 200 mg, 1, tablet, By Mouth, Daily, label in barbadian please, # 60 tablet, Refills 2, Tot. Refills 2, Maintenance, 05/18/20 8:10:00 EDT, Route to Pharmacy Electronically, [facility], 170.18, cm, 09/19/19 14:54:00 EST, Height, 72.6, [...] 07/01/21 8:58:00 EST, [facility] Please print label and instructions in Iraqi., 170.18, cm, 06/20... Start Date: 07/01/21 Status: [...]
== END 2023-06-19 13:43 | disposition home or self-care (01) ==
LOC: HO.HUSH 13:00
PROVIDERS: PCP Internal Medicine; Visit Provider Nurse Practitioner Family
DX: C61 Malignant neoplasm of prostate (principal); R33.9 Retention of urine, unspecified; R39.9 Unspecified symptoms and signs involving the genitourinary system; R35.1 Nocturia; R35.0 Frequency of micturition; R39.15 Urgency of urination
CPT/HCPCS: 99204

== ENCOUNTER → 2023-06-19 13:00 | Outpatient (BNVA) | payer OTHER, SELFPAY | PROVIDERS: PCP Internal Medicine; Visit Provider Nurse Practitioner Family | DX: R33.9 Retention of urine, unspecified (principal); R39.9 Unspecified symptoms and signs involving the genitourinary system; R35.1 Nocturia; R35.0 Frequency of micturition; R39.15 Urgency of urination; C61 Malignant neoplasm of prostate | CPT/HCPCS: 99202 ==